=== PATIENT | male | born 1965 | race Caucasian/White ===

== ENCOUNTER 2018-03-24 09:10 | Inpatient (IN) | payer OTHER, SELFPAY ==
[2018-03-24] VITALS (25 sets, daily range): BP systolic 100–164; BP diastolic 63–106; PULSE 64–135; RESP 13–22; TEMP 36.8–37.6; O2SAT 96–100; BMI 29.0; BMI 31.6; BMI 31.7; BMI 29.2
--- NOTE | 2018-03-24 09:16 | NURSING ---
STEMI CALLED. DR GALLOWAY FOR DR RAMOS
--- NOTE | 2018-03-24 09:17 | EKG12_ITS ---
Test Reason : CP Blood Pressure : / mmHG Vent. Rate : 102 BPM Atrial Rate : 102 BPM P-R Int : 168 ms QRS Dur : 084 ms QT Int : 320 ms P-R-T Axes : 052 -45 -14 degrees QTc Int : 417 ms Sinus tachycardia Left axis deviation Pulmonary disease pattern Anterior Septal infarct Acute Marked ST abnormality, possible inferior subendocardial injury Abnormal ECG Confirmed by IRMA BATISTA, ELDON ([id number]), editor trade journal BRUCE ARMSTRONG ([id number]) on 03/26/2018 9:32:14 AM Referred By: Zayra Glaser Confirmed By:ELDON SOLIS MD
--- NOTE | 2018-03-24 09:24 | NURSING ---
DR DANIELLA RAMOS
[2018-03-24] MEDS: TICAGRELOR 90 MG TABLET 180 MG PO (09:26)
--- NOTE | 2018-03-24 09:26 | ED.VISSUMM ---
- ER Visit Summary Date of Service: 03/24/18 Chief Complaint: Chest pain History of Present Illness: The patient is a 52 M who presents with chest pain for the past 12 hours, he describes it as indigestion and he is trying to belch he thinks this will make it better. He has no radiation to his back. He has no neurological symptoms and he has no jaw pain associated with this. He has no fever or chills. Physical Examination: Patient appears in some distress Moist mucous membranes, no obvious facial deformity No C-spine tenderness supple neck. Regular rate and rhythm without any obvious murmurs Clear lungs bilaterally speaking in full sentences without any obvious respiratory distress Abdomen soft and nontender no guarding or rebound Moves all extremities without any difficulty or pain. Skin does not show any obvious rashes or lesions, no trauma. Alert oriented ?3 with no gross focal deficit Emergency department treatment and course of events: Initial EKG showed ST elevation in V1, with reciprocal's in 2 3 and aVF, I repeated a second EKG right away and patient has a STEMI. I activated the STEMI team. I talked to Dr. Singh who will see the patient. Brilinta, aspirin and heparin were given. He was hypertensive tachycardic I gave him some Lopressor and will manage this also. Admit to Tin Recovery Worker Impression: Acute ST elevation myocardial infarction Critical care time 35 minutes This note was generated with [employer] dictation software. It may contain incorrect words, spelling, and punctuation that were not noted in review of the chart prior to signing ED Disposition - Plan for ED Patient: Chief Complaint: Chest Pain Referrals: Patrick Sparrow MD [Primary Care Provider] -
[2018-03-24] MEDS: Aspirin 81 MG TAB.CHEW 324 MG PO (09:27)
[2018-03-24] MEDS: Heparin Injection (Vial) 5,000 UNIT/ML VIAL 4000 UNIT IV (09:27)
--- NOTE | 2018-03-24 09:28 | EKG12_ITS ---
Test Reason : REPEAT CP Blood Pressure : / mmHG Vent. Rate : 131 BPM Atrial Rate : 131 BPM P-R Int : 140 ms QRS Dur : 086 ms QT Int : 308 ms P-R-T Axes : 050 -09 -24 degrees QTc Int : 454 ms Sinus tachycardia Anteroseptal infarct , possibly acute ACUTE GA / STEMI Abnormal ECG Confirmed by IRMA BATISTA, ELDON ([id number]), editor magazine BRUCE ARMSTRONG ([id number]) on 03/26/2018 1:51:46 PM Referred By: Zayra Glaser Confirmed By:ELDON SOLIS MD
[2018-03-24 09:29] LABS: International Normalized Ratio 0.9; Prothrombin Time (Protime)PT. 12.5 SECONDS (11.7-14.9)
[2018-03-24] MEDS: Metoprolol Tartrate 5 MG/5 ML Vial IV (09:29)
--- NOTE | 2018-03-24 09:30 | ED.DCSUM_ITS ---
- ER Visit Summary Date of Service: 03/24/18 Chief Complaint: Chest pain History of Present Illness: The patient is a 52 M who presents with chest pain for the past 12 hours, he describes it as indigestion and he is trying to belch he thinks this will make it better. He has no radiation to his back. He has no neurological symptoms and he has no jaw pain associated with this. He has no fever or chills. Physical Examination: Patient appears in some distress Moist mucous membranes, no obvious facial deformity No C-spine tenderness supple neck. Regular rate and rhythm without any obvious murmurs Clear lungs bilaterally speaking in full sentences without any obvious respiratory distress Abdomen soft and nontender no guarding or rebound Moves all extremities without any difficulty or pain. Skin does not show any obvious rashes or lesions, no trauma. Alert oriented ?3 with no gross focal deficit Emergency department treatment and course of events: Initial EKG showed ST elevation in V1, with reciprocal's in 2 3 and aVF, I repeated a second EKG right away and patient has a STEMI. I activated the STEMI team. I talked to Dr. Singh who will see the patient. Brilinta, aspirin and heparin were given. He was hypertensive tachycardic I gave him some Lopressor and will manage this also. 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 It may contain incorrect words, spelling, and punctuation that were not noted in review of the chart prior to signing ED Disposition - Plan for ED Patient: Chief Complaint: Chest Pain Referrals: Patrick Sparrow MD [Primary Care Provider] -
--- NOTE | 2018-03-24 09:30 | RAD_ITS ---
STUDY: X-RAY CHEST REASON FOR EXAM: Male, 52 years old. Chest pain. TECHNIQUE: Single AP portable view of the chest. COMPARISON: None. FINDINGS: The lungs are clear and expanded. There is no demonstrated pleural abnormality. Normal size heart. Normal mediastinum and edis. Normal visualized pulmonary arteries. Normal visualized aortic arch and descending thoracic aorta. The thoracic spine is suboptimally seen. There are degenerative changes in the right acromioclavicular joint. There is no demonstrated abnormality of the visualized soft tissue structures of the upper abdomen. RAD/Chest 1 View (Portable) IMPRESSION: No active pulmonary disease. Electronically Signed: Hector Wall MD at 9:52 EST Tel , Service support ,
[2018-03-24 09:33] LABS: Absolute Lymphocyte Count 1.51 X10^3/ul (0.83-4.51); Absolute Neutrophil Count 9.6 X10^3/uL (2.0-7.7); Basophil# 0.03 X10^3/uL; Basophil% 0.2 % (0-1); Eosinophil# 0.12 X10^3/uL; Hematocrit 44.3 % (40-54); Hemoglobin 15.2 g/dl (13.0-16.5); Lymphocyte # 1.51 X10^3/ul (4.0); Lymphocyte % 12.3 % (19-41); Mean Corp Hgb Conc 34.3 g/gl (32-36); Mean Corpuscular Hgb 30.5 pg (27.0-32.0); Mean Corpuscular Volume 88.8 fL (80-94); Mean Platelet Vol. 10.2 fl (6.2-12.0); Monocyte# 1.01 X10^3/uL; Monocyte% 8.2 % (0-10); Neutrophil # 9.57 X10^3/uL (2.7-7.7); Neutrophil % 78.1 % (47-70); Platelet Count 315 K/mm3 (150-450); RBC Distribution Width CV 13.5 % (11.6-14.6); RBC Distribution Width SD 43.9 fl (35.1-43.9); Red Blood Count 4.99 M/mm3 (4.6-6.2); White Blood Count 12.3 K/mm3 (4.4-11.0)
[2018-03-24 09:34] LABS: POSITIVE COUNT NO; POSITIVE DIFFERENTIAL NO; POSITIVE MORPHOLOGY NO
--- NOTE | 2018-03-24 09:34 | NURSING ---
DR BREWER IN WITH PATIENT
[2018-03-24 09:40] LABS: Anion Gap 11 (5-15); BUN 12 mg/dL (7-18); BUN/Creat Ratio 10.8 RATIO (10-20); Calcium,Total 10.9 mg/dL (8.5-10.1); Chloride 103 mmol/L (98-107); Creatinine, Serum 1.11 mg/dL (0.70-1.30); EST Glomerular Filtration Rate 74 mL/min (>60); Est Glom Filt Rate - Afr Amer 89 mL/min (>60); Estimated Creatinine Clearance 77.85 ml/min; Glucose 134 mg/dL (74-106); Potassium 3.8 mmol/L (3.5-5.1); Sodium Level 141 mmol/L (136-145)
[2018-03-24] MEDS: Morphine 2 MG/ML Syringe IV ×3 (09:56→23:34)
--- NOTE | 2018-03-24 09:57 | ED.RN ---
0910. PT ARRIVES TRIAGE. STATES CP STARTING YESTERDAY. COMING FROM NOW CLINIC. PT BACK TO ROOM 1 IMMEDIATELY. EKG CALLED
--- NOTE | 2018-03-24 09:57 | PCM.HP.STD ---
Problem List (1) ST elevation FL (STEMI) Status: Acute (2) Hypertension Status: Chronic Qualifiers: Hypertension type: unspecified Qualified Code(s): I10 - Essential (primary) hypertension (3) Obesity (BMI 30.0-34.9) Status: Chronic (4) Nicotine dependence Status: Chronic Qualifiers: Nicotine product type: cigarettes (5) Cystic acne Status: Chronic History of Present Illness Date of Admission: 03/24/18 Chief Complaint: Midsternal chest pain and epigastric pain The patient is a 52 year old M with a past medical history of hypertension, nicotine dependence and cystic acne who presented to the emergency department at [facility] on 03/24/2018 complaining of substernal chest discomfort associated with burping. He denies radiation of the pain to the neck jaw or arms. He denies diaphoresis and also denies shortness of breath. He denies palpitations. EKG in the emergency room revealed ST segment elevation in the anterolateral leads with T wave inversions and ST depression in the inferior leads. Chest x-ray shows no infiltrates, pulmonary vascular congestion or pleural effusions. He denies any history of coronary artery disease. He does not know his family history because he is adopted. His primary care physician is Dr. Esa Sparrow. The cath team and Dr. Dustin Singh were summoned and the patient was taken to the [facility]. Past Medical History Past Medical History (Chronic Problems): Chronic Problems (Last Updated 03/24/18 @ 08:57 by Tegan Asher) Hypertension (Chronic) Obesity (BMI 30.0-34.9) (Chronic) Nicotine dependence (Chronic) Cystic acne (Chronic) Medical History: Medical History (Last Updated 03/24/18 @ 08:57 by Tegan Asher) HTN (hypertension) I10 Allergies bee venom protein (honey bee) Allergy (Verified 03/24/18 09:10) Unknown Home Medications: Ambulatory Orders Medication Instructions Recorded Amlodipine [Norvasc] 10 mg PO DAILY #30 tab 09/27/16 Hydrochlorothiazide 12.5 mg PO DAILY 03/13/17 Surgical History: - - Multiple cyst removals from the neck, face and right upper extremity Psychiatric History: No pertinent psych hx Lives: Alone, - - He is single and has no children. Smoking Status: Current every day smoker - 1 pack/day Tobacco Use: Cigarettes Alcohol: Occasional Drugs: None - *Family History Maternal History Items: - - The patient was adopted and has no knowledge of his maternal or Paternal family history. Review of Systems Constitutional: Reports: - - he is having increased eructation. Denies: Chills, Fever, Weight Change Eyes: Denies: Blurred vision HEENT: Denies: Head Aches, Sinus Congestion, Sinus Drainage Cardiovascular: Reports: Chest Pain, Chest Tightness. Denies: Edema, Heaviness, Light Headedness, Orthopnea, Palpitations, Syncope Respiratory: Denies: Cough, Shortness of breath at rest, Sputum production Gastrointestinal: Denies: Abdominal Pain, Nausea, Vomiting Genitourinary: Denies: Dysuria Musculoskeletal: Denies: Back Pain, Joint Pain, Joint swelling, Joint Tenderness, Neck Pain Skin: Denies: Rash, Wounds Neurological: Denies: Numbness, Tingling, Focal weakness Psychiatric: Denies: Anxiety, Depression, Homicidal Ideations, Suicidal Ideations Endocrine: Denies: Change in Body Habitus Hematologic/ Lymphatic: Denies: Easy Bruising, Easy Bleeding, Hx of blood clot VTE Information - Inpt Only VTE Present on Admission: No VTE Mechan Device Prophylaxis: SCD's VTE Pharm Prophylaxis ordered?: Yes Patient Problems: Active and Suspected Problems (Last Updated 03/24/18 @ 08:57 by Tegan Asher) ST elevation FL (STEMI) (Acute) - Physical Exam General: Alert, Oriented x3, Cooperative, Well developed, Well nourished, - - Somewhat anxious HEENT: Atraumatic, PERRLA, EOMI, Normocephalic Oral: Dry Mucosa Neck: Supple, No JVD, Negative Carotid Bruits, - - Carotids have brisk upstroke and good pulse volume Lungs: Clear to auscultation, Normal air movement, No rhonchi, No wheeze, No rales Cardiovascular: Regular Rhythm, Normal S1, Normal S2, No murmurs, No Gallop, Tachycardic Abdomen: Bowel Sounds Present, Soft, Non Tender, Non-Distended, Obese Extremities: No clubbing, No cyanosis, No edema, No Calf Tenderness, Peripheral Pulses Normal Skin: No rashes, No breakdown Musculoskeletal: No Muscle Wasting Neurological: Cranial nerves II-XII grossly intact, Neuro grossly intact Psych/Mental Status: Normal Affect, Appropriate Vital Signs Temp Pulse Resp BP Pulse Ox 98.3 F 135 H 18 164/97 H 98 03/24/18 09:11 03/24/18 09:17 03/24/18 09:17 03/24/18 09:17 03/24/18 09:17 Oxygen Flow Rate (L/min) 2 Oxygen Delivery Method Nasal Cannula Weight: 214 lb 6.4 oz Body Mass Index (BMI) 31.6 Laboratory Tests Past 24 Hrs 03/24/18 03/24/18 03/24/18 09:15 09:15 09:15 WBC 12.3 H RBC 4.99 Hgb 15.2 Hct 44.3 MCV 88.8 MCH 30.5 MCHC 34.3 RDW 13.5 RDW Differential 43.9 Plt Count 315 MPV 10.2 Immature Gran % (Auto) 0.200 Neut % (Auto) 78.1 H Lymph % (Auto) 12.3 L [place] % (Auto) 8.2 Eos % (Auto) 1.0 Baso % (Auto) 0.2 Absolute Neuts (auto) 9.6 H Absolute Lymphs (auto) 1.51 Total Counted Not Reportable PT 12.5 INR 0.9 APTT 24.0 L Sodium 141 Potassium 3.8 Chloride 103 Carbon Dioxide 27.0 Anion Gap 11 BUN 12 Creatinine 1.11 Estim Creat Clear Calc 77.85 Est GFR (MDRD) Af Amer 89 Est GFR (MDRD) Non-Af 74 BUN/Creatinine Ratio 10.8 Glucose 134 H Calcium 10.9 H Troponin I 0.252 H Assessment/Plan All Active Problems (Last Updated 03/24/18 @ 08:57 by Tegan Asher) ST elevation FL (STEMI) (Acute) Chest pain (Acute) Impressions 1. STEMI 2. Hypertension 3. Nicotine dependence 4. Cystic acne Pt was escorted to the lab tech by myself and observed until Dr. Singh arrived. There was no ectopy. CP was relieved with 2 mg of MS. He had no SOB and the lungs were CTA. Admit to ICU following the procedure and further orders will be written at that time after the results of the cath are known. Code Visit Inpatient E&M: 24663 Init Hosp L3
--- NOTE | 2018-03-24 10:01 | HP.PCM_ITS ---
Problem List (1) ST elevation [place] (STEMI) Status: Acute (2) Hypertension Status: Chronic Qualifiers: Hypertension type: unspecified Qualified Code(s): I10 - Essential (primary) hypertension (3) Obesity (BMI 30.0-34.9) Status: Chronic (4) Nicotine dependence Status: Chronic Qualifiers: Nicotine product type: cigarettes (5) Cystic acne Status: Chronic History of Present Illness Date of Admission: 03/24/18 Chief Complaint: Midsternal chest pain and epigastric pain The patient is a 52 year old M with a past medical history of hypertension, nicotine dependence and cystic acne who presented to the emergency department at [facility] on 03/24/2018 complaining of substernal chest discomfort associated with burping. He denies radiation of the pain to the neck jaw or arms. He denies diaphoresis and also denies shortness of breath. He denies palpitations. EKG in the emergency room revealed ST segment elevation in the anterolateral leads with T wave inversions and ST depression in the inferior leads. Chest x-ray shows no infiltrates, pulmonary vascular congestion or pleural effusions. He denies any history of coronary artery disease. He does not know his family history because he is adopted. His primary care physician is Dr. Esa Sparrow. The cath team and Dr. Dustin Singh were summoned and the patient was taken to the [facility]. Past Medical History Past Medical History (Chronic Problems): Chronic Problems (Last Updated 03/24/18 @ 08:57 by Tegan Asher) Hypertension (Chronic) Obesity (BMI 30.0-34.9) (Chronic) Nicotine dependence (Chronic) Cystic acne (Chronic) Medical History: Medical History (Last Updated 03/24/18 @ 08:57 by Tegan Asher) HTN (hypertension) I10 Allergies bee venom protein (honey bee) Allergy (Verified 03/24/18 09:10) Unknown Home Medications: Ambulatory Orders Medication Instructions Recorded Amlodipine [Norvasc] 10 mg PO DAILY #30 tab 09/27/16 Hydrochlorothiazide 12.5 mg PO DAILY 03/13/17 Surgical History: - - Multiple cyst removals from the neck, face and right upper extremity Psychiatric History: No pertinent psych hx Lives: Alone, - - He is single and has no children. Smoking Status: Current every day smoker - 1 pack/day Tobacco Use: Cigarettes Alcohol: Occasional Drugs: None - *Family History Maternal History Items: - - The patient was adopted and has no knowledge of his maternal or Paternal family history. Review of Systems Constitutional: Reports: - - he is having increased eructation. Denies: Chills, Fever, Weight Change Eyes: Denies: Blurred vision HEENT: Denies: Head Aches, Sinus Congestion, Sinus Drainage Cardiovascular: Reports: Chest Pain, Chest Tightness. Denies: Edema, Heaviness, Light Headedness, Orthopnea, Palpitations, Syncope Respiratory: Denies: Cough, Shortness of breath at rest, Sputum production Gastrointestinal: Denies: Abdominal Pain, Nausea, Vomiting Genitourinary: Denies: Dysuria Musculoskeletal: Denies: Back Pain, Joint Pain, Joint swelling, Joint Tendern ess, Neck Pain Skin: Denies: Rash, Wounds Neurological: Denies: Numbness, Tingling, Focal weakness Psychiatric: Denies: Anxiety, Depression, Homicidal Ideations, Suicidal Ideations Endocrine: Denies: Change in Body Habitus Hematologic/ Lymphatic: Denies: Easy Bruising, Easy Bleeding, Hx of blood clot VTE Information - Inpt Only VTE Present on Admission: No VTE Mechan Device Prophylaxis: SCD's VTE Pharm Prophylaxis ordered?: Yes Patient Problems: Active and Suspected Problems (Last Updated 03/24/18 @ 08:57 by Tegan Asher) ST elevation PA (STEMI) (Acute) - Physical Exam General: Alert, Oriented x3, Cooperative, Well developed, Well nourished, - - Somewhat anxious HEENT: Atraumatic, PERRLA, EOMI, Normocephalic Oral: Dry Mucosa Neck: Supple, No JVD, Negative Carotid Bruits, - - Carotids have brisk upstroke and good pulse volume Lungs: Clear to auscultation, Normal air movement, No rhonchi, No wheeze, No rales Cardiovascular: Regular Rhythm, Normal S1, Normal S2, No murmurs, No Gallop, Tachycardic Abdomen: Bowel Sounds Present, Soft, Non Tender, Non-Distended, Obese Extremities: No clubbing, No cyanosis, No edema, No Calf Tenderness, Peripheral Pulses Normal Skin: No rashes, No breakdown Musculoskeletal: No Muscle Wasting Neurological: Cranial nerves II-XII grossly intact, Neuro grossly intact Psych/Mental Status: Normal Affect, Appropriate Vital Signs Temp Pulse Resp BP Pulse Ox 98.3 F 135 H 18 164/97 H 98 03/24/18 09:11 03/24/18 09:17 03/24/18 09:17 03/24/18 09:17 03/24/18 09:17 Oxygen Flow Rate (L/min) 2 Oxygen Delivery Method Nasal Cannula Weight: 214 lb 6.4 oz Body Mass Index (BMI) 31.6 Laboratory Tests Past 24 Hrs 03/24/18 03/24/18 03/24/18 09:15 09:15 09:15 WBC 12.3 H RBC 4.99 Hgb 15.2 Hct 44.3 MCV 88.8 MCH 30.5 MCHC 34.3 RDW 13.5 RDW Differential 43.9 Plt Count 315 MPV 10.2 Immature Gran % (Auto) 0.200 Neut % (Auto) 78.1 H Lymph % (Auto) 12.3 L [place] % (Auto) 8.2 Eos % (Auto) 1.0 Baso % (Auto) 0.2 Absolute Neuts (auto) 9.6 H Absolute Lymphs (auto) 1.51 Total Counted Not Reportable PT 12.5 INR 0.9 APTT 24.0 L Sodium 141 Potassium 3.8 Chloride 103 Carbon Dioxide 27.0 Anion Gap 11 BUN 12 Creatinine 1.11 Estim Creat Clear Calc 77.85 Est GFR (MDRD) Af Amer 89 Est GFR (MDRD) Non-Af 74 BUN/Creatinine Ratio 10.8 Glucose 134 H Calcium 10.9 H Troponin I 0.252 H Assessment/Plan All Active Problems (Last Updated 03/24/18 @ 08:57 by Tegan Asher) ST elevation PA (STEMI) (Acute) Chest pain (Acute) Impressions 1. STEMI 2. Hypertension 3. Nicotine dependence 4. Cystic acne Pt was escorted to the labour market economist by myself and observed until Dr. Singh arrived. There was no ectopy. CP was relieved with 2 mg of MS. He had no SOB and the lungs were CTA. Admit to ICU following the procedure and further orders will be written at that time after the results of the cath are known. Code Visit Inpatient E&M: 50527 Init Hosp L3
[2018-03-24] MEDS: HEPARIN/D5w 25,000 UNITS 25,000 UNITS/250 ML IV.SOLN. 8 UNITS IV (10:30)
[2018-03-24 10:56] LABS: ACT Activated Clotting Time 175 sec (74-137)
[2018-03-24 10:56] LABS: ACT Activated Clotting Time 147 sec (74-137)
--- NOTE | 2018-03-24 11:08 | CL.I_ITS ---
Patient Name: MICHEAL DILLON Study Date: 03/24/2018 Performing: Dustin Singh MD Ht: 68.89 inches 175 cm : 1965 Wt: 213.85 lbs 97 kg Age: 52 Gender: male BSA: 2.12 PROCEDURE(S) PERFORMED [id number]/LV [id number], YAMILA AND/OR PTCA, ARTERY OR GRAFT, SINGLE VESSEL CLINICAL PROFILE AND CO-MORBIDITIES Patient presents with STEMI for emergent cardiac cath. Indications: ACS <= 24 hrs, New Onset Angina <= 2 months, Suspected CAD Heart Failure: NYHA Class: 1, Newly Diagnosed: Yes, Heart Failure Type: Systolic Stress/Imaging Stress/Image Study Performed: No Angina Classification Anginal Classification w/in 2 Weeks: No symptoms CAD Presentations: STEMI. 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 RECOMMENDATIONS Referred for immediate PCI Stress test in 4weeks to eval mid LCX. Highly recommend quitting all tobacco products Follow up with primary top spotter Risk factor modification ASA Indefinitley Plavix for at least 12 months Routine post interventional care Refer for Outpatient Cardiac Rehab Manual sheath removal per protocol Follow up with Dr. Singh Stress test in 4 weeks to eval LCX. Emergent IABP due to severe LV dysfunction and elevated LVEDP. DESCRIPTION OF PROCEDURE The patient arrived to the procedure lab. The risks and benefits of the procedure as well as a full d escription of our services here and lack of surgical backup were fully explained to the patient and/o r their significant other prior to the catheterization. The Timeout was completed, verifying the betina ect patient and procedure. The patient's procedural site was prepped and draped in the usual fashion. Local anesthetic was given subcutaneously to right groin region with Lidocaine 2%. Using a modified Seldinger technique, arterial access was obtained via the right femoral artery, a 6Fr sheath was inse rted. Right Coronary Artery selective angiography was then performed in multiple views using a 4 Fr. 3DRC catheter. Left Coronary Artery selective angiography was performed in multiple views using a 6 Fr. EBU 3.75 Guide Catheter. Left Ventriculography was performed in GREENE projection using a 4 Fr. Pigt ail catheter. LV to AO pullback pressures were then recordedA 7Fr 40cc IABP catheter was inserted into the right femoral artery, IABP settings: 1:1, IABP Augumented BP: 111 mmHg Systemic BP: 128 mmHgThe images were reviewed and options discussed. A decision was then made to proceed with an Intervention, IVUS or other adjunct procedure. Runthrough Guide wire was advanced to the LAD. [place] AP inserted Pass # 1 [place] AP Removed Samra Alianza 2.0 x 12 Balloon catheter was inserted. Balloon catheter was advanced across lesion in the LAD, pr oximal. PTCA balloon inflated at 6 atms for 5 secs. PTCA balloon inflated at 6 atms for 5 secs. Angio gram performed post balloon dilatation. Synergy 2.5 x 24 Drug Eluting stent was inserted. Drug Elutin g stent was advanced across the lesion in the LAD, proximal. Angiogram performed pre stent deployment . Angiogram performed post stent deployment. Farseer 3.0 x 8 Balloon catheter was inserted. Balloon catheter was advanced across lesion in the LAD, proximal. Angiogram performed pre balloon dilatation . Angiogram performed post balloon dilatation. Arterial sheath was exchanged for a 8 Fr Sheath. Contr ast was injected through the sheath and the Right Iliac and Femoral artery were assessed for possible closure device. The arterial sheath was sutured in place and capped CORONARY ANGIOGRAPHY DOMINANCE: Right Dominant LEFT HEART ASSESSMENT Left Ventricular Ejection Fraction: by LV Gram 35 % Depressed Left Ventricular systolic function LVEDP: 21-30 mmHg Abnormal Left Ventricular contraction pattern Anterior Hypokinesis - Severe LEFT MAIN: Angiographically normal LEFT ANTERIOR DECENDING ARTERY: PROX LAD: is occluded CIRCUMFLEX ARTERY: MID CIRC: 50 % Stenosis RIGHT CORONARY ARTERY: Mild luminal irregularities less than 30% RT PDA: Mid - 30 % Stenosis INTERVENTION INFORMATION LESION SITE: LAD (Proximal) Lesion Complexity: High/C, lesion at bifurcation: No, thrombus present: Yes, lesion length: 24 mm, cu lprit lesion: Yes Pre Stenosis: 100 % Pre intervention DONY flow: 0 PROCEDURE: Drug Eluting Stent with pre and post dilatation, Thrombectomy Post Stenosis: 0 % Post intervention DONY flow: 3 Lesion Devices: Medtronic 6 Fr EBU3.75 100cm Guide Catheter Terumo .014 Runthrough Extra Floppy 180cm straight Medtronic 6 Fr. [place] AP Aspiration Catheter Johnie Sci EMERGE MR 2.00x12 BALLOON Johnie Sci Synergy MR YAMILA 2.50x24 Johnie Sci NC EMERGE MR 3.00x08 BALLOON COMPLICATIONS No Complications PROCEDURE MEDICATIONS Oxygen: 2 L/min via nasal cannula Heparin 6000 unit(s) IV 03/24/2018 10:16:25 Heparin 4000 unit(s) IV 03/24/2018 10:40:38 Heparin 25,000u / 250ml D5W @ 800 u/hr IV started 03/24/2018 10:45:43 Nitro 200 mcg IC 03/24/2018 10:17:18 Nitro 200 mcg IC 03/24/2018 10:17:18 IV Bolus: .9 NaCl 1100 ml total 03/24/2018 10:32:51 IV Fluids: .9 NaCl decreased to 150 ml/hr 03/24/2018 10:33:01 SUMMARY OF HEMODYNAMIC DATA Time AIR REST ECG 09:56:18 AO 108/86 (98) SA 10:12:00 LV 152/-5, 21 10:31:33 LV 151/-7, 30 10:31:39 LVp 131/-8, 24 10:31:50 AOp 121/68 (92) 10:31:55 Signed By Dustin Singh MD On 03/24/2018 11:07:24 AM Dustin Snigh MD
[2018-03-24 11:15] LABS: Hemoglobin A1c 5.4 % (4.2-6.3)
[2018-03-24] MEDS: 0.9% Normal Saline 1,000 ML 150 ML IV (11:15)
--- NOTE | 2018-03-24 13:54 | NURSING ---
Pt keeping glasses & cell phone at bedside.
[2018-03-24] MEDS: Metoprolol Tartrate 25 MG Tablet 12.5 MG PO ×2 (15:27→21:33)
[2018-03-24] MEDS: 0.9% Normal Saline 1,000 ML 60 ML IV (16:10)
[2018-03-24 16:57] LABS: Partial Thromboplast Time 52.3 Seconds (24.1-36.2)
[2018-03-24] MEDS: Lisinopril 5 MG Tablet PO (17:06)
--- NOTE | 2018-03-24 17:15 | CM.UR ---
See attached sales and service representative. Met with face to face with the patient, introduced myself to him and explained my role. Patient works here at [employer]. Denies anticipating any needs at discharge. Anatoliy Hernandez, DANIEL, [facility].
[2018-03-24] MEDS: 0.9% NaCl Peripheral Flush Adult/Peds IV ×2 (19:31→23:34)
[2018-03-24] MEDS: Acetaminophen 325 MG Tablet 650 MG PO (21:06)
[2018-03-24] MEDS: Atorvastatin Calcium 80 MG Tablet PO (21:33)
[2018-03-24] MEDS: TICAGRELOR 90 MG TABLET PO (21:33)
[2018-03-24] MEDS: Zolpidem Tartrate 5 MG Tablet PO (21:33)
[2018-03-24 23:47] LABS: Partial Thromboplast Time 33.9 Seconds (24.1-36.2)
[2018-03-25] VITALS (31 sets, daily range): BP systolic 86–138; BP diastolic 55–95; PULSE 56–88; RESP 12–21; TEMP 36.6–37.5; O2SAT 95–100
[2018-03-25] MEDS: Gabapentin 100 MG Capsule PO (00:08)
[2018-03-25] MEDS: Heparin Injection (Vial) 5,000 UNIT/ML VIAL IV (00:54)
[2018-03-25] MEDS: 0.9% NaCl Peripheral Flush Adult/Peds IV ×2 (00:54→04:53)
[2018-03-25] MEDS: oxyCODONE 5 MG Tablet PO ×4 (00:55→21:01)
[2018-03-25 04:59] LABS: Hematocrit 37.5 % (40-54); Hemoglobin 12.7 g/dl (13.0-16.5); Mean Corp Hgb Conc 33.9 g/gl (32-36); Mean Corpuscular Hgb 30.8 pg (27.0-32.0); Mean Platelet Vol. 10.3 fl (6.2-12.0); Platelet Count 252 K/mm3 (150-450); RBC Distribution Width CV 13.9 % (11.6-14.6); RBC Distribution Width SD 45.8 fl (35.1-43.9); Red Blood Count 4.12 M/mm3 (4.6-6.2); White Blood Count 12.1 K/mm3 (4.4-11.0)
[2018-03-25 05:06] LABS: Scan Indicated on CBC? Y/N NO
[2018-03-25 05:19] LABS: ALB/GLOB Ratio 1.1 RATIO (0.9-2.4); AST(SGOT) 141 U/L (15-37); Alanine Aminotransfer ALT/SGPT 34 U/L (16-61); Albumin, Serum 3.2 g/dL (3.2-5.0); Alkaline Phosphatase 41 U/L (45-117); Anion Gap 9 (5-15); BUN 12 mg/dL (7-18); BUN/Creat Ratio 11.2 RATIO (10-20); Calcium,Total 8.2 mg/dL (8.5-10.1); Chloride 109 mmol/L (98-107); Cholesterol 169 mg/dL (200); Creatinine, Serum 1.07 mg/dL (0.70-1.30); EST Glomerular Filtration Rate 77 mL/min (>60); Est Glom Filt Rate - Afr Amer 93 mL/min (>60); Estimated Creatinine Clearance 88.64 ml/min; Glucose 90 mg/dL (74-106); High Density Lipoprotein 39 mg/dL; Potassium 3.7 mmol/L (3.5-5.1); Protein, Total 6.2 g/dL (6.4-8.2); Sodium Level 143 mmol/L (136-145); Triglycerides 200 mg/dL; Very Low Density Lipoprotein 40 mg/dL (5-40)
--- NOTE | 2018-03-25 05:55 | RAD_ITS ---
STUDY: X-RAY CHEST REASON FOR EXAM: Male, 52 years old. Documentation of location of aortic balloon placement. TECHNIQUE: Single AP portable view of the chest. COMPARISON: March 24, 2018. FINDINGS: Cardiac monitoring leads are present. Aortic balloon pump is present with the tip at the cephalad most portion of the aortic arch. The lungs are clear and expanded. There is no demonstrated pleural abnormality. There is borderline cardiomegaly. Normal mediastinum and edis. Normal visualized pulmonary arteries. There is atherosclerotic calcification of the aortic arch with tortuosity. There are diffuse degenerative changes of the visualized thoracic spine. There are degenerative changes of both shoulders. There is no demonstrated abnormality of the visualized soft tissue structures of the upper abdomen. RAD/Chest 1 View (Portable) IMPRESSION: 1. No radiographic evidence of acute cardiopulmonary disease. 2. The tip of the aortic balloon pump is at the aortic arch. Electronically Signed: Ema Reese MD at 6:06 EST , Service support ,
--- NOTE | 2018-03-25 06:49 | PN_ITS ---
Patient Problems: Active and Suspected Problems (Last Updated 03/24/18 @ 08:57 by Tegan Asher) ST elevation GA (STEMI) (Acute) Subjective: 52-year-old female admitted to [facility] on 03/24/2018 with STEMI. Taken to [facility] for stent to a 100% occluded LAD. Admitted to the ICU with a balloon pump in place. EF at the time of cath was 35% with anterior hypokinesis. All events of the past 24 hours have been reviewed. TMAX: 99.6 once Vital signs: Stable, pulse ox 95-100% on room air Fluid balance: -430 since admission Urine output: 1850 on 03/24/2018 Weight: All radiologic testing was reviewed: Chest x-ray today with the tip of the balloon pump in the superior portion of the aortic arch. No pleural effusions, pulmonary vascular congestion or infiltrates. All labs were personally reviewed: White blood cell count is mildly elevated at 12.1 which is unchanged. Hemoglobin is 12.7 today, down from 15.2 at admission. Electrolytes are within normal limits. Calcium is 8.2 down from 10.9 at admission. AST is 141 with an ALT of 34. Alk phos and bilirubin are unremarkable. LDL cholesterol is 90 with an HDL of 39 and triglycerides of 200. Telemetry: Normal sinus rhythm with periodic bursts of nonsustained ventricular tachycardia-5 beat runs, asymptomatic EKG: Hyper acute T waves in the anterior precordial leads have resolved but the patient is now developed T wave inversion in the lateral precordial leads. ST depression and T wave inversion in the inferior leads has resolved. Subjective: He denies chest pain, shortness of breath, palpitations, nausea, vomiting. His only complaint today is back pain which has improved with 10 mg of OxyIR. Objective: General: alert, oriented X3, NAD, appropriate with normal affect Neck: supple, trachea midline, carotids have brisk upstroke and good pulse volume (on IAB), no JVD Lungs: CTA, symmetric chest expansion, not tachypneic, able to lie flat with no respiratory distress, no accessory muscle use Heart: Regular rate and rhythm, normal S1, normal S2, no murmur, no gallop, no rub Abdomen: soft, NT, ND, BS's present Extremities: no edema, no calf tenderness, peripheral pulses are normal, no cyanosis Right groin is without bleeding and he has mild tenderness - Physical Exam Vital Signs Temp Pulse Resp BP Pulse Ox 97.9 F 65 14 115/80 95 03/25/18 06:00 03/25/18 06:00 03/25/18 06:00 03/25/18 06:00 03/25/18 06:00 Oxygen Flow Rate (L/min) 2 Oxygen Delivery Method Room Air Weight: 218 lb 7.649 oz Body Mass Index (BMI) 29.2 Intake and Output for Last 24 Hours 03/23/18 03/24/18 03/25/18 23:59 23:59 23:59 Intake Total 790 / 790 904.4 / 904.4 Output Total 1850 / 1850 275 / 275 Balance -1060 / -1060 629.4 / 629.4 Laboratory Tests Past 24 Hrs 03/24/18 03/24/18 03/24/18 09:15 09:15 09:15 WBC 12.3 H RBC 4.99 Hgb 15.2 Hct 44.3 MCV 88.8 MCH 30.5 MCHC 34.3 RDW 13.5 RDW Differential 43.9 Plt Count 315 MPV 10.2 Immature Gran % (Auto) 0.200 Neut % (Auto) 78.1 H Lymph % (Auto) 12.3 L Webster % (Auto) 8.2 Eos % (Auto) 1.0 Baso % (Auto) 0.2 Absolute Neuts (auto) 9.6 H Absolute Lymphs (auto) 1.51 Total Counted Not Reportable PT 12.5 INR 0.9 APTT 24.0 L Activated Clotting Time Sodium 141 Potassium 3.8 Chloride 103 Carbon Dioxide 27.0 Anion Gap 11 BUN 12 Creatinine 1.11 Estim Creat Clear Calc 77.85 Est GFR (MDRD) Af Amer 89 Est GFR (MDRD) Non-Af 74 BUN/Creatinine Ratio 10.8 Glucose 134 H Hemoglobin A1c Calcium 10.9 H Total Bilirubin AST ALT Alkaline Phosphatase Troponin I 0.252 H Total Protein Albumin Globulin Albumin/Globulin Ratio Triglycerides Cholesterol LDL Cholesterol VLDL Cholesterol HDL Cholesterol 03/24/18 03/24/18 03/24/18 09:15 10:13 10:37 WBC RBC Hgb Hct MCV MCH MCHC RDW RDW Differential Plt Count MPV Immature Gran % (Auto) Neut % (Auto) Lymph % (Auto) Webster % (Auto) Eos % (Auto) Baso % (Auto) Absolute Neuts (auto) Absolute Lymphs (auto) Total Counted PT INR APTT Activated Clotting Time 147 H 175 H Sodium Potassium Chloride Carbon Dioxide Anion Gap BUN Creatinine Estim Creat Clear Calc Est GFR (MDRD) Af Amer Est GFR (MDRD) Non-Af BUN/Creatinine Ratio Glucose Hemoglobin A1c 5.4 Calcium Total Bilirubin AST ALT Alkaline Phosphatase Troponin I Total Protein Albumin Globulin Albumin/Globulin Ratio Triglycerides Cholesterol LDL Cholesterol VLDL Cholesterol HDL Cholesterol 03/24/18 03/24/18 03/24/18 12:15 16:35 16:35 WBC RBC Hgb Hct MCV MCH MCHC RDW RDW Differential Plt Count MPV Immature Gran % (Auto) Neut % (Auto) Lymph % (Auto) Webster % (Auto) Eos % (Auto) Baso % (Auto) Absolute Neuts (auto) Absolute Lymphs (auto) Total Counted PT INR APTT 52.3 H Activated Clotting Time Sodium Potassium Chloride Carbon Dioxide Anion Gap BUN Creatinine Estim Creat Clear Calc Est GFR (MDRD) Af Amer Est GFR (MDRD) Non-Af BUN/Creatinine Ratio Glucose Hemoglobin A1c Calcium Total Bilirubin AST ALT Alkaline Phosphatase Troponin I 6.060 H* 20.400 H* Total Protein Albumin Globulin Albumin/Globulin Ratio Triglycerides Cholesterol LDL Cholesterol VLDL Cholesterol HDL Cholesterol 03/24/18 03/25/18 03/25/18 23:30 04:45 04:45 WBC 12.1 H RBC 4.12 L Hgb 12.7 L Hct 37.5 L MCV 91.0 MCH 30.8 MCHC 33.9 RDW 13.9 RDW Differential 45.8 H Plt Count 252 MPV 10.3 Immature Gran % (Auto) Neut % (Auto) Lymph % (Auto) Webster % (Auto) Eos % (Auto) Baso % (Auto) Absolute Neuts (auto) Absolute Lymphs (auto) Total Counted PT INR APTT 33.9 Activated Clotting Time Sodium 143 Potassium 3.7 Chloride 109 H Carbon Dioxide 25.0 Anion Gap 9 BUN 12 Creatinine 1.07 Estim Creat Clear Calc 88.64 Est GFR (MDRD) Af Amer 93 Est GFR (MDRD) Non-Af 77 BUN/Creatinine Ratio 11.2 Glucose 90 Hemoglobin A1c Calcium 8.2 L Total Bilirubin 0.70 AST 141 H ALT 34 Alkaline Phosphatase 41 L Troponin I Total Protein 6.2 L Albumin 3.2 Globulin 3.0 Albumin/Globulin Ratio 1.1 Triglycerides 200 H Cholesterol 169 LDL Cholesterol 90 VLDL Cholesterol 40 HDL Cholesterol 39 L Medical Necessity - Tobacco Use Smoking Status: Current every day smoker - 1 pack/day Tobacco Use: Cigarettes Assessment/Plan All Active Problems (Last Updated 03/24/18 @ 08:57 by Tegan Asher) ST elevation GA (STEMI) (Acute) Chest pain (Acute) Impressions 1. STEMI-status post PTCA/YAMILA LAD due to 100% occlusion. Intra-aortic balloon pump in place 2. Hypertension 3. Nicotine dependence 4. Cystic acne 5. Coronary artery disease 6. Nonsustained ventricular tachycardia-likely secondary to reperfusion Continue aspirin, atorvastatin, lisinopril, metoprolol, Brilinta Continue heparin as long as the balloon pump is in place-possible discontinuation of balloon pump in the a.m. Patient has been started on a cardiac diet We have begun instruction on the new medications he will be taking Smoking cessation has been advised but the patient has informed me he does not want to talk about this any longer Supplement the potassium to keep it around 4. Recheck lab in the a.m. Check a magnesium level today Will need a stress test in 4 weeks to evaluate for ischemia related to the 50% circumflex lesion Discussed with Dr. Schumacher and with Dr. Ayaan Faustin Visit Inpatient E&M: 28745 Subs Hosp L3
[2018-03-25 07:27] LABS: Partial Thromboplast Time 41.9 Seconds (24.1-36.2)
--- NOTE | 2018-03-25 08:09 | PCM.PN.CARD ---
Subjectve: Patient seen and evaluated. Appears to be doing well. Complains of mild back pain. Objective: Vital Signs Temp Pulse Resp BP Pulse Ox 97.9 F 62 13 95/63 98 03/25/18 06:00 03/25/18 07:00 03/25/18 07:00 03/25/18 07:00 03/25/18 07:00 Oxygen Flow Rate (L/min) 2 Oxygen Delivery Method Room Air Weight: 218 lb 7.649 oz Body Mass Index (BMI) 29.2 Intake and Output for Last 24 Hours 03/23/18 03/24/18 03/25/18 23:59 23:59 23:59 Intake Total 790 / 790 904.4 / 904.4 Output Total 1850 / 1850 305 / 305 Balance -1060 / -1060 599.4 / 599.4 General: Awake, Alert, Oriented x 3 HEENT: PERRL, EOMI, Sclera Non Icteric Neck: Supple, Good ROM, No Lymph Node Enlargement Lungs: Clear to auscultation Cardiovascular: Regular Rhythm, Normal S1, Normal S2, No Murmurs, No Rubs, No Gallops Vascular: No Carotid Bruits, Normal Femoral Pulses, Normal Radial Pulses, Normal Dorsalis Pedal Pulse, Normal Posterior Tibial Pulses Abdomen: Bowel Sounds Present, Soft, Non Tender, No HSM, No Organomegaly Extremities: No Cyanosis, No Clubbing, No edema Lymphatic: No Lymph Node Enlargement Neurological: No Focal Motor or Sensory Deficit Psych/Mental Status: Appropriate 03/24/18 09:15: WBC 12.3 H, RBC 4.99, Hgb 15.2, Hct 44.3, MCV 88.8, MCH 30.5, MCHC 34.3, RDW 13.5, RDW Differential 43.9, Plt Count 315, MPV 10.2, Immature Gran % (Auto) 0.200, Neut % (Auto) 78.1 H, Lymph % (Auto) 12.3 L, [place] % (Auto) 8.2, Eos % (Auto) 1.0, Baso % (Auto) 0.2, Absolute Neuts (auto) 9.6 H, Total Counted Not Reportable 03/24/18 09:15: PT 12.5, INR 0.9, APTT 24.0 L 03/24/18 09:15: Sodium 141, Potassium 3.8, Chloride 103, Carbon Dioxide 27.0, Anion Gap 11, BUN 12, Creatinine 1.11, Est GFR (MDRD) Af Amer 89, Est GFR (MDRD) Non-Af 74, BUN/Creatinine Ratio 10.8, Glucose 134 H, Calcium 10.9 H, Troponin I 0.252 H 03/24/18 09:15: Hemoglobin A1c 5.4 03/24/18 12:15: Troponin I 6.060 H* 03/24/18 16:35: Troponin I 20.400 H* 03/24/18 16:35: APTT 52.3 H 03/24/18 23:30: APTT 33.9 03/25/18 04:45: WBC 12.1 H, RBC 4.12 L, Hgb 12.7 L, Hct 37.5 L, MCV 91.0, MCH 30.8, MCHC 33.9, RDW 13.9, RDW Differential 45.8 H, Plt Count 252, MPV 10.3 03/25/18 04:45: Sodium 143, Potassium 3.7, Chloride 109 H, Carbon Dioxide 25.0, Anion Gap 9, BUN 12, Creatinine 1.07, Est GFR (MDRD) Af Amer 93, Est GFR (MDRD) Non-Af 77, BUN/Creatinine Ratio 11.2, Glucose 90, Calcium 8.2 L, Total Bilirubin 0.70, Triglycerides 200 H, Cholesterol 169, LDL Cholesterol 90, VLDL Cholesterol 40, HDL Cholesterol 39 L 03/25/18 07:00: APTT 41.9 H Rhythm: EKG: Normal sinus rhythm with evolutionary T wave inversions noted laterally ECHO: Stress Test: Cardiac Cath: PCI: CT Surgery: Holter monitor: EPS: PPM: CXR: Chest CT Scan: Medical Necessity - Tobacco Use Smoking Status: Current every day smoker - 1 pack/day Tobacco Use: Cigarettes Assessment/Plan 1. ST elevation myocardial infarction Patient presented with the above underwent urgent cardiac catheterization which demonstrated a totally occluded left anterior descending artery which was a treated with an export catheter and drug-eluting stents. Patient subsequently had an intra-aortic balloon pump placed We will continue supportive management with intravenous heparin Continue low-dose beta-phillip We will institute BOB inhibitor as tolerated Ticagrelor Have the balloon pump discontinued likely in a.m. Creatinine remains stable. There is however a hemoglobin drop of 2.5 which is stable and will be monitored. No evidence of bleeding noted. 2. Tobacco abuse Patient has been counseled about the above. 3. Lipidemia Will start high intensity statin. Thank you for allowing me to participate in the care of your patient. Please don't hesitate to call if any issues arise
--- NOTE | 2018-03-25 08:12 | PN.CARD_ITS ---
Subjectve: Patient seen and evaluated. Appears to be doing well. Complains of mild back pain. Objective: Vital Signs Temp Pulse Resp BP Pulse Ox 97.9 F 62 13 95/63 98 03/25/18 06:00 03/25/18 07:00 03/25/18 07:00 03/25/18 07:00 03/25/18 07:00 Oxygen Flow Rate (L/min) 2 Oxygen Delivery Method Room Air Weight: 218 lb 7.649 oz Body Mass Index (BMI) 29.2 Intake and Output for Last 24 Hours 03/23/18 03/24/18 03/25/18 23:59 23:59 23:59 Intake Total 790 / 790 904.4 / 904.4 Output Total 1850 / 1850 305 / 305 Balance -1060 / -1060 599.4 / 599.4 General: Awake, Alert, Oriented x 3 HEENT: PERRL, EOMI, Sclera Non Icteric Neck: Supple, Good ROM, No Lymph Node Enlargement Lungs: Clear to auscultation Cardiovascular: Regular Rhythm, Normal S1, Normal S2, No Murmurs, No Rubs, No Gallops Vascular: No Carotid Bruits, Normal Femoral Pulses, Normal Radial Pulses, Normal Dorsalis Pedal Pulse, Normal Posterior Tibial Pulses Abdomen: Bowel Sounds Present, Soft, Non Tender, No HSM, No Organomegaly Extremities: No Cyanosis, No Clubbing, No edema Lymphatic: No Lymph Node Enlargement Neurological: No Focal Motor or Sensory Deficit Psych/Mental Status: Appropriate 03/24/18 09:15: WBC 12.3 H, RBC 4.99, Hgb 15.2, Hct 44.3, MCV 88.8, MCH 30.5, MCHC 34.3, RDW 13.5, RDW Differential 43.9, Plt Count 315, MPV 10.2, Immature Gran % (Auto) 0.200, Neut % (Auto) 78.1 H, Lymph % (Auto) 12.3 L, Ogle % (Auto) 8.2, Eos % (Auto) 1.0, Baso % (Auto) 0.2, Absolute Neuts (auto) 9.6 H, Total Counted Not Reportable 03/24/18 09:15: PT 12.5, INR 0.9, APTT 24.0 L 03/24/18 09:15: Sodium 141, Potassium 3.8, Chloride 103, Carbon Dioxide 27.0, Anion Gap 11, BUN 12, Creatinine 1.11, Est GFR (MDRD) Af Amer 89, Est GFR (MDRD) Non-Af 74, BUN/Creatinine Ratio 10.8, Glucose 134 H, Calcium 10.9 H, Troponin I 0.252 H 03/24/18 09:15: Hemoglobin A1c 5.4 03/24/18 12:15: Troponin I 6.060 H* 03/24/18 16:35: Troponin I 20.400 H* 03/24/18 16:35: APTT 52.3 H 03/24/18 23:30: APTT 33.9 03/25/18 04:45: WBC 12.1 H, RBC 4.12 L, Hgb 12.7 L, Hct 37.5 L, MCV 91.0, MCH 30.8, MCHC 33.9, RDW 13.9, RDW Differential 45.8 H, Plt Count 252, MPV 10.3 03/25/18 04:45: Sodium 143, Potassium 3.7, Chloride 109 H, Carbon Dioxide 25.0, Anion Gap 9, BUN 12, Creatinine 1.07, Est GFR (MDRD) Af Amer 93, Est GFR (MDRD) Non-Af 77, BUN/Creatinine Ratio 11.2, Glucose 90, Calcium 8.2 L, Total Bilirubin 0.70, Triglycerides 200 H, Cholesterol 169, LDL Cholesterol 90, VLDL Cholesterol 40, HDL Cholesterol 39 L 03/25/18 07:00: APTT 41.9 H Rhythm: EKG: Normal sinus rhythm with evolutionary T wave inversions noted laterally ECHO: Stress Test: Cardiac Cath: PCI: CT Surgery: Holter monitor: EPS: PPM: CXR: Chest CT Scan: Medical Necessity - Tobacco Use Smoking Status: Current every day smoker - 1 pack/day Tobacco Use: Cigarettes Assessment/Plan 1. ST elevation myocardial infarction Patient presented with the above underwent urgent cardiac catheterization which demonstrated a totally occluded left anterior descending artery which was a treated with an export catheter and drug-eluting stents. * Patient subsequently had an intra-aortic balloon pump placed * We will continue supportive management with intravenous heparin * Continue low-dose beta-phillip * We will institute BOB inhibitor as tolerated * Ticagrelor * Have the balloon pump discontinued likely in a.m. * Creatinine remains stable. There is however a hemoglobin drop of 2.5 which is stable and will be monitored. No evidence of bleeding noted. 2. Tobacco abuse * Patient has been counseled about the above. * 3. Lipidemia * Will start high intensity statin. * * Thank you for allowing me to participate in the care of your patient. Please don't hesitate to call if any issues arise
[2018-03-25] MEDS: Aspirin E.C. 81 MG Tablet PO (09:22)
[2018-03-25] MEDS: Lisinopril 5 MG Tablet PO (09:23)
[2018-03-25] MEDS: TICAGRELOR 90 MG TABLET PO ×2 (09:23→21:31)
[2018-03-25] MEDS: Metoprolol Tartrate 25 MG Tablet 12.5 MG PO ×2 (09:23→21:31)
--- NOTE | 2018-03-25 10:00 | EKG12_ITS ---
Test Reason : AM EKG Blood Pressure : / mmHG Vent. Rate : 066 BPM Atrial Rate : 066 BPM P-R Int : 184 ms QRS Dur : 108 ms QT Int : 436 ms P-R-T Axes : 062 029 106 degrees QTc Int : 457 ms Normal sinus rhythm T wave abnormality, consider anterolateral ischemia Abnormal ECG When compared with ECG of 24-MAR-2018 11:34, MANUAL COMPARISON REQUIRED, DATA IS UNCONFIRMED Confirmed by IRMA BATISTA, ELDON ([id number]), society editor BRUCE ARMSTRONG ([id number]) on 03/27/2018 4:13:32 PM Referred By: Zayra Glaser Confirmed By:ELDON SOLIS MD
[2018-03-25 10:16] LABS: Magnesium 2.2 mg/dL (1.6-2.6)
--- NOTE | 2018-03-25 11:00 | EKG12_ITS ---
Test Reason : CHEST PAIN Blood Pressure : / mmHG Vent. Rate : 070 BPM Atrial Rate : 070 BPM P-R Int : 168 ms QRS Dur : 112 ms QT Int : 438 ms P-R-T Axes : 049 018 126 degrees QTc Int : 473 ms Normal sinus rhythm ST & T wave abnormality, consider anterolateral ischemia Prolonged QT Abnormal ECG Confirmed by IRMA BATISTA, ELDON ([id number]), field map editor BRUCE ARMSTRONG ([id number]) on 03/27/2018 4:12:49 PM Referred By: Zayra Glaser Confirmed By:ELDON SOLIS MD
[2018-03-25] MEDS: HEPARIN/D5w 25,000 UNITS 25,000 UNITS/250 ML IV.SOLN. 10 UNITS IV (12:28)
[2018-03-25 13:51] LABS: Partial Thromboplast Time 41.1 Seconds (24.1-36.2)
[2018-03-25 20:12] LABS: Partial Thromboplast Time 45.5 Seconds (24.1-36.2)
[2018-03-25] MEDS: Zolpidem Tartrate 5 MG Tablet PO (21:31)
[2018-03-25] MEDS: Atorvastatin Calcium 80 MG Tablet PO (21:31)
[2018-03-25] MEDS: Mag Hydrox/Al Hydrox/Simeth 30 ML UDC 15 ML PO (22:29)
[2018-03-26] VITALS (35 sets, daily range): BP systolic 84–149; BP diastolic 55–97; PULSE 62–92; RESP 13–24; TEMP 36.6–37.8; O2SAT 94–99; BMI 29.5
[2018-03-26 03:18] LABS: Hematocrit 37.3 % (40-54); Hemoglobin 12.6 g/dl (13.0-16.5); Mean Corp Hgb Conc 33.8 g/gl (32-36); Mean Corpuscular Hgb 30.1 pg (27.0-32.0); Mean Platelet Vol. 9.8 fl (6.2-12.0); Platelet Count 230 K/mm3 (150-450); RBC Distribution Width CV 13.4 % (11.6-14.6); RBC Distribution Width SD 43.7 fl (35.1-43.9); Red Blood Count 4.19 M/mm3 (4.6-6.2); White Blood Count 12.7 K/mm3 (4.4-11.0)
[2018-03-26 03:27] LABS: Scan Indicated on CBC? Y/N NO
[2018-03-26 03:55] LABS: Anion Gap 11 (5-15); BUN 13 mg/dL (7-18); BUN/Creat Ratio 12.9 RATIO (10-20); Calcium,Total 8.3 mg/dL (8.5-10.1); Chloride 107 mmol/L (98-107); Creatinine, Serum 1.01 mg/dL (0.70-1.30); EST Glomerular Filtration Rate 82 mL/min (>60); Est Glom Filt Rate - Afr Amer 100 mL/min (>60); Estimated Creatinine Clearance 93.91 ml/min; Glucose 90 mg/dL (74-106); Magnesium 2.1 mg/dL (1.6-2.6); Potassium 3.8 mmol/L (3.5-5.1); Sodium Level 141 mmol/L (136-145)
[2018-03-26 03:58] LABS: Partial Thromboplast Time 61.8 Seconds (24.1-36.2)
[2018-03-26] MEDS: oxyCODONE 5 MG Tablet PO ×2 (04:22→08:48)
--- NOTE | 2018-03-26 05:55 | RAD_ITS ---
STUDY: X-RAY CHEST REASON FOR EXAM: Male, 52 years old. Verify aortic balloon pump catheter placement. TECHNIQUE: AP portable chest. COMPARISON: March 25, 2018. FINDINGS: Aortic balloon pump tip in its expected location. The lungs are clear and expanded. There is no demonstrated pleural abnormality. Normal size heart. Normal mediastinum and edis. Normal visualized pulmonary arteries. Normal visualized aortic arch and descending thoracic aorta. Normal visualized thoracic spine. Normal visualized ribs, clavicles, and shoulders. There is no demonstrated abnormality of the visualized soft tissue structures of the upper abdomen. RAD/Chest 1 View (Portable) IMPRESSION: Normal x-ray examination of the chest. Aortic balloon pump in its expected location. Electronically Signed: Omi Lemons MD at 5:07 EST , Service support ,
--- NOTE | 2018-03-26 07:27 | CRPHASE1 ---
Patient Data/Charges Assistant Community Manager:: Dustin Singh Refer Phase II:: Yes Phase II Referral:: [facility] Start Phase II:: After follow up visit with Cardiology Phase I Charge:: Level I - Education Risk Factors/Lifestyle Smoking Status: Current every day smoker Hx Hypertension: Yes Hx Dyslipidemia: Yes Hx Obesity: Yes Height: 6 ft Weight:: 218 lb BMI: 29.5 Laboratory Values: Cardiac Rehab Phase I Labs Hemoglobin A1c 5.4 % (4.2-6.3) 03/24/18 09:15 Triglycerides 200 mg/dL (-199) H 03/25/18 04:45 Cholesterol 169 mg/dL (200) 03/25/18 04:45 LDL Cholesterol 90 mg/dL (0-130) 03/25/18 04:45 HDL Cholesterol 39 mg/dL (40-) L 03/25/18 04:45 Phase I Education Given On:: [place], Nutrition, Antiplatelet medication, CHF, Smoking cessation Issues Affecting Care:: None Knowledge of Condition:: Yes Learning Preferences: Verbal, Written, Audio/Visual, Demonstration Medical/Surgical History Hypertension:: Yes Dyslipidemia:: Yes Discharge/Home/Social Eval Social Work/Reason:: Works at [employer], is adopted.
[2018-03-26 07:30] LABS: ACT Activated Clotting Time 131 sec (74-137)
--- NOTE | 2018-03-26 07:31 | CRPHASE1_ITS ---
Patient Data/Charges Station Captain:: Dustin Singh Refer Phase II:: Yes Phase II Referral:: [facility] Start Phase II:: After follow up visit with Cardiology Phase I Charge:: Level I - Education Risk Factors/Lifestyle Smoking Status: Current every day smoker Hx Hypertension: Yes Hx Dyslipidemia: Yes Hx Obesity: Yes Height: 6 ft Weight:: 218 lb BMI: 29.5 Laboratory Values: Cardiac Rehab Phase I Labs Hemoglobin A1c 5.4 % (4.2-6.3) 03/24/18 09:15 Triglycerides 200 mg/dL (-199) H 03/25/18 04:45 Cholesterol 169 mg/dL (200) 03/25/18 04:45 LDL Cholesterol 90 mg/dL (0-130) 03/25/18 04:45 HDL Cholesterol 39 mg/dL (40-) L 03/25/18 04:45 Phase I Education Given On:: [place], Nutrition, Antiplatelet medication, CHF, Smoking cessation Issues Affecting Care:: None Knowledge of Condition:: Yes Learning Preferences: Verbal, Written, Audio/Visual, Demonstration Medical/Surgical History Hypertension:: Yes Dyslipidemia:: Yes Discharge/Home/Social Eval Social Work/Reason:: Works at [employer], is adopted.
--- NOTE | 2018-03-26 07:33 | CRPH1.INST_ITS ---
General Education CAD and cardiac anatomy and function:: Patient communicates acknowledgment, Needs reinforcement Explanation of diagnoses and procedures:: Patient communicates acknowledgment, Needs reinforcement Sign/Symptoms of VT:: Patient communicates acknowledgment, Needs reinforcement Antiplatelet therapy: Patient communicates acknowledgment, Needs reinforcement Proper use of NTG-SL: Patient communicates acknowledgment, Needs reinforcement Emergency procedures and activation of EMS: Patient communicates acknowledgment, Needs reinforcement Compliance of all prescribed medications: Patient communicates acknowledgment, Needs reinforcement Smoking Patient Nicotine/Smoking Risk Factors Are:: Cigarettes Recommendations Include:: Smoking cessation strategies/Smoking packet, Second- hand smoke recommendation, Participation in a smoking cessation program Nicotine/Smoking Response Code:: Patient communicates acknowledgment, Needs reinforcement Dyslipidemia Patient Dyslipidemia Risk Factors Are:: Total Cholesterol, Triglycerides, HDL, LDL Recommendations Include:: Lipid profile provided, Reviewed NCEP/ATP guidelines, Therapeutic Lifestyle Change dietary guidelines Dyslipidemia Response Code:: Patient communicates acknowledgment, Needs reinforcement Overweight/Obesity Patient Overweight/Obesity Risk Factors Are:: Overweight = 26-29 Recommendations Include:: Weight loss of 5-10%, Reduced calorie diet, Exercise 5-7 times/week Overweight/Obesity:: Patient communicates acknowledgment, Needs reinforcement Hypertension Recommendations Include:: Maintain BP <130/85, DASH dietary guidelines, Decrease/maintain normal body weight, Moderation of ETOH Hypertension:: Patient communicates acknowledgment, Needs reinforcement Heart Disease Patient Heart Disease Risk Factors Are:: Previous cardiac event Heart Disease Response Code:: Patient communicates acknowledgment, Needs reinforcement - Is adopted, has no children Diabetes Patient Diabetes Risk Factors Are:: No documented hx of diabetes Diabetes:: Not instructed Metabolic Syndrome Patient Metabolic Syndrome Risk Factors Are [3 of 5]:: Waist circumference > 35 [female] or 40 [male], High triglyceride >150, Hypertension, Low HDL <40 [male] or < 50 [female] Recommendations Include:: Reinforce compliance to risk factor modifications, Encouraged follow-up with Primary Care Physician Metabolic Syndrome Response Code:: Patient communicates acknowledgment, Needs reinforcement Sedentary Recommendations Include:: Aerobic exercise 5-7 times/week for 20-30 minutes continuously, Benefits of regular exercise, Discussed home walking program, Monitored Outpatient Cardiac Rehab Sedentary Response Code:: Patient communicates acknowledgment, Needs reinforcement Stress Recommendations Include:: Identification of stressors, and assessment of coping skills, Stress management techniques Stress Response Code:: Patient communicates acknowledgment, Needs reinforcement
[2018-03-26] MEDS: Lisinopril 5 MG Tablet PO (08:44)
[2018-03-26] MEDS: TICAGRELOR 90 MG TABLET PO ×2 (08:44→21:42)
[2018-03-26] MEDS: Aspirin E.C. 81 MG Tablet PO (08:44)
[2018-03-26] MEDS: Metoprolol Tartrate 25 MG Tablet 12.5 MG PO ×2 (08:45→21:42)
--- NOTE | 2018-03-26 09:13 | PN.CARD_ITS ---
Subjectve: Patient doing very well overnight. Telemetry negative. Right groin is clean/dry/intact. Intruding balloon pump weaned off successfully and removed this morning. Direct manual pressure held for 30 minutes. No hematoma, excellent 2+ DP and PT pulses bilaterally. Objective: Vital Signs Temp Pulse Resp BP Pulse Ox 98.8 F 67 17 118/78 99 03/26/18 09:00 03/26/18 09:00 03/26/18 09:00 03/26/18 09:00 03/26/18 09:00 Oxygen Flow Rate (L/min) 2 Oxygen Delivery Method Room Air Weight: 218 lb Body Mass Index (BMI) 29.2 Intake and Output for Last 24 Hours 03/24/18 03/25/18 03/26/18 23:59 23:59 23:59 Intake Total 790 / 790 2405.4 / 2405.4 1427.4 / 1427.4 Output Total 1850 / 1850 1560 / 1560 780 / 780 Balance -1060 / -1060 845.4 / 845.4 647.4 / 647.4 General: Awake, Alert, Oriented x 3 HEENT: PERRL, EOMI, Sclera Non Icteric Neck: Supple, Good ROM, No Lymph Node Enlargement Lungs: Clear to auscultation Cardiovascular: Regular Rhythm, Normal S1, Normal S2, No Murmurs, No Rubs, No Gallops Vascular: No Carotid Bruits, Normal Femoral Pulses, Normal Radial Pulses, Normal Dorsalis Pedal Pulse, Normal Posterior Tibial Pulses Abdomen: Bowel Sounds Present, Soft, Non Tender, No HSM, No Organomegaly Extremities: No Cyanosis, No Clubbing, No edema Neurological: No Focal Motor or Sensory Deficit 03/25/18 07:00: Magnesium 2.2 03/25/18 13:30: APTT 41.1 H 03/25/18 19:55: APTT 45.5 H 03/26/18 03:05: WBC 12.7 H, RBC 4.19 L, Hgb 12.6 L, Hct 37.3 L, MCV 89.0, MCH 30.1, MCHC 33.8, RDW 13.4, RDW Differential 43.7, Plt Count 230, MPV 9.8 03/26/18 03:05: Sodium 141, Potassium 3.8, Chloride 107, Carbon Dioxide 23.0, Anion Gap 11, BUN 13, Creatinine 1.01, Est GFR (MDRD) Af Amer 100, Est GFR (MDRD) Non-Af 82, BUN/Creatinine Ratio 12.9, Glucose 90, Calcium 8.3 L, Magnesium 2.1 03/26/18 03:05: APTT 61.8 H Rhythm: EKG: ECHO: Pending Stress Test: Cardiac Cath: PCI: CT Surgery: Holter monitor: EPS: PPM: CXR: Chest CT Scan: Medical Necessity - Tobacco Use Smoking Status: Current every day smoker Tobacco Use: Cigarettes Assessment/Plan 1. Coronary artery disease: The patient presents with acute anterior wall myocardial infarction with a peak troponin of about 10, and moderate to severe anterior LV dysfunction with an EF around 35% post procedure. He received a single drug-eluting stent to the proximal LAD followed by intra-aortic balloon pump placement for about 48 hours. Intra-aortic balloon pump weaned off this morning and successfully removed without complications. Blood pressure is doing fairly well. This point he will continue baby aspirin, Brilinta, lisinopril and beta- blockers. I recommended he undergo a stress test in 3-4 weeks time to evaluate his left circumflex territory. If he has any inferior lateral ischemia on stress testing, I have a low threshold for repeat catheterization and elective angioplasty of his left circumflex. 2. Hyperlipidemia: Continue Lipitor therapy. Repeat lipid profile in 6 weeks time. 3. The patient may be transferred to PCU should the ICU require or need a ICU bed. Plan for discharge tomorrow morning. 4. Thank you very much for the opportunity to participate in the cardiac care of your patient. Code Visit Inpatient E&M: 45318 Subs Hosp L2
--- NOTE | 2018-03-26 10:00 | EKG12_ITS ---
Test Reason : AM EKG Blood Pressure : / mmHG Vent. Rate : 066 BPM Atrial Rate : 066 BPM P-R Int : 164 ms QRS Dur : 092 ms QT Int : 470 ms P-R-T Axes : 051 009 115 degrees QTc Int : 492 ms Normal sinus rhythm ST & T wave abnormality, consider anterolateral ischemia Prolonged QT Abnormal ECG When compared with ECG of 25-MAR-2018 20:01, MANUAL COMPARISON REQUIRED, DATA IS UNCONFIRMED Confirmed by IRMA BATISTA, ELDON ([id number]), city editor BRUCE ARMSTRONG ([id number]) on 03/27/2018 4:11:28 PM Referred By: Zayra Glaser Confirmed By:ELDON SOLIS MD
--- NOTE | 2018-03-26 14:49 | PCM.PN.HOSP ---
Patient Problems: Active and Suspected Problems (Last Updated 03/24/18 @ 08:57 by Tegan Asher) ST elevation MT (STEMI) (Acute) Subjective: Patient seen and examined. He had no complaints and felt well. He denied any fever chills, cough or chest pain, shortness of breath, abdominal pain, diarrhea vomiting. Pain at cath site is well controlled. Labs and vitals reviewed. He had intra-aortic balloon pump placed after surgery. This was removed this morning he feels well. Vitals/I&O's: Vital Signs Temp Pulse Resp BP Pulse Ox 99.2 F H 73 19 H 132/74 H 94 03/26/18 12:00 03/26/18 13:00 03/26/18 13:00 03/26/18 13:00 03/26/18 13:00 Oxygen Flow Rate (L/min) 2 Oxygen Delivery Method Room Air Weight: 218 lb Body Mass Index (BMI) 29.2 Intake and Output for Last 24 Hours 03/24/18 03/25/18 03/26/18 23:59 23:59 23:59 Intake Total 790 / 790 2405.4 / 2405.4 1787.4 / 1787.4 Output Total 1850 / 1850 1560 / 1560 1530 / 1530 Balance -1060 / -1060 845.4 / 845.4 257.4 / 257.4 General: Alert, Oriented x3, Cooperative HEENT: Atraumatic, PERRLA, EOMI, Normocephalic Oral: Moist Mucosa Neck: Supple, No JVD, Negative Carotid Bruits Lungs: Clear to auscultation, Normal air movement, No rhonchi, No wheeze, No rales Cardiovascular: Regular rate, Regular Rhythm, Normal S1, Normal S2, No murmurs Abdomen: Bowel Sounds Present, Soft, Non Tender, Non-Distended, No Hepato-splenomegaly Extremities: No clubbing, No cyanosis, No edema, Capillary Refill Less than 3 Seconds, - - dressing at right groin site is clean and dry. Skin: No rashes, No breakdown Musculoskeletal: No Tenderness to Palpation of Joints or Extremities Lymphatic: No Cervical, Supraclavicular, or Inguinal Adenopathy Neurological: Cranial nerves II-XII grossly intact Psych/Mental Status: Normal Affect, Appropriate, Alert and oriented to time, place, person, mood and affect Laboratory Results 03/25/18 19:55: APTT 45.5 H 03/26/18 03:05: WBC 12.7 H, RBC 4.19 L, Hgb 12.6 L, Hct 37.3 L, MCV 89.0, MCH 30.1, MCHC 33.8, RDW 13.4, RDW Differential 43.7, Plt Count 230, MPV 9.8 03/26/18 03:05: Sodium 141, Potassium 3.8, Chloride 107, Carbon Dioxide 23.0, Anion Gap 11, BUN 13, Creatinine 1.01, Estim Creat Clear Calc 93.91, Est GFR (MDRD) Af Amer 100, Est GFR (MDRD) Non-Af 82, BUN/Creatinine Ratio 12.9, Glucose 90, Calcium 8.3 L, Magnesium 2.1 03/26/18 03:05: APTT 61.8 H 03/26/18 07:17: Activated Clotting Time 131 Diagnostic Data Chest X-Ray 03/26/18 05:55 IMPRESSION: Normal x-ray examination of the chest. Aortic balloon pump in its expected location. Electronically Signed: Omi Lemons MD at 5:07 EST , Service support , Current Medications Acetaminophen (Tylenol) 650 mg PO Q6H PRN PRN PRN Reason: Mild Pain (0-2/10) Last Admin: 03/24/18 21:06 Dose: 650 mg Aspirin (Ecotrin) 81 mg PO DAILY@0800 [facility] Last Admin: 03/26/18 08:44 Dose: 81 mg Atorvastatin Calcium (Lipitor) 80 mg PO QHS [facility] Last Admin: 03/25/18 21:31 Dose: 80 mg Atropine Sulfate () 0.5 mg IV UD PRN PRN Reason: HR <50 bpm Diazepam (Valium) 5 mg PO Q6H PRN PRN PRN Reason: BACK SPASMS/ANXIETY Sodium Chloride () 250 mls @ 15 mls/hr IV .[id number] PRN PRN Reason: SALINE FLUSH Sodium Chloride () 500 mls @ 15 mls/hr IV .[id number] PRN PRN Reason: SALINE FLUSH Lisinopril (Zestril) 5 mg PO DAILY [facility] Last Admin: 03/26/18 08:44 Dose: 5 mg Metoclopramide HCl (Reglan) 5 mg IV Q6H PRN PRN Reason: NAUSEA/VOMITING Metoprolol Tartrate (Lopressor (Beta Iman)) 12.5 mg PO BID [facility] Last Admin: 03/26/18 08:45 Dose: 12.5 mg Morphine Sulfate () 2 mg IV Q4H PRN PRN PRN Reason: Mild back pain (0-2/10) Last Admin: 03/24/18 23:34 Dose: 2 mg Oxycodone HCl (Oxyir) 5 - 10 mg PO Q4H PRN PRN PRN Reason: SEVERE PAIN (6-10/10) Last Admin: 03/26/18 08:48 Dose: 10 mg [facility] Last Admin: 03/26/18 08:48 Dose: 20 meq Sodium Chloride () 500 ml IV BOLUS PRN PRN Reason: VASO-VAGAL PROTOCOL Sodium Chloride () 5 - 30 ml IV UD PRN PRN Reason: SALINE FLUSH Last Admin: 03/25/18 04:53 Dose: 10 ml Ticagrelor (Brilinta) 90 mg PO BID [facility] Last Admin: 03/26/18 08:44 Dose: 90 mg Zolpidem Tartrate (Ambien (Generic)) 5 mg PO QHS PRN PRN PRN Reason: INSOMNIA Last Admin: 03/25/18 21:31 Dose: 5 mg Medical Necessity - Tobacco Use Smoking Status: Current every day smoker Tobacco Use: Cigarettes Assessment/Plan All Active Problems (Last Updated 03/24/18 @ 08:57 by Tegan Asher) ST elevation MT (STEMI) (Acute) Chest pain (Acute) 1. STEMI s/p cath today is POD 1. Had YAMILA placed in LAD due to 100% occlusion. Had intraortic balloon pump put in place afterwards has no complaints today. Feels well Intra-aortic balloon pump placed after surgery but this was removed today he feels well. on aspirin, Brilinta, metoprolol, lisinopril and atorvastatin cardiology on board to have stress test in 4 weeks time to evaluate for ischemia related to 50% blockage in circumflex lesion 2. Hypertension: controlled. On metoprolol 3. Nonsustained ventricular tachycardia: Stable. Has resolved. 4. Low-grade fever: Temperature 99.5 after procedure. He has no obvious source of infection. Chest x-ray done today showed no obvious lung pathology. Likely reactive after surgery. Will monitor. Tylenol as needed. 5. Nicotine dependence: counselled to quit 6. Leukocytosis: White cell count is 12.7 today. Again no obvious source of infection. Likely reactive. Will monitor and if it continues trending up we will order cultures and UA. DVT prophylaxis: SCDs Code Visit Inpatient E&M: 07134 Subs Hosp L3
--- NOTE | 2018-03-26 14:56 | PN_ITS ---
Patient Problems: Active and Suspected Problems (Last Updated 03/24/18 @ 08:57 by Tegan Asher) ST elevation CT (STEMI) (Acute) Subjective: Patient seen and examined. He had no complaints and felt well. He denied any fever chills, cough or chest pain, shortness of breath, abdominal pain, diarrhea vomiting. Pain at cath site is well controlled. Labs and vitals reviewed. He had intra-aortic balloon pump placed after surgery. This was removed this morning he feels well. Vitals/I&O's: Vital Signs Temp Pulse Resp BP Pulse Ox 99.2 F H 73 19 H 132/74 H 94 03/26/18 12:00 03/26/18 13:00 03/26/18 13:00 03/26/18 13:00 03/26/18 13:00 Oxygen Flow Rate (L/min) 2 Oxygen Delivery Method Room Air Weight: 218 lb Body Mass Index (BMI) 29.2 Intake and Output for Last 24 Hours 03/24/18 03/25/18 03/26/18 23:59 23:59 23:59 Intake Total 790 / 790 2405.4 / 2405.4 1787.4 / 1787.4 Output Total 1850 / 1850 1560 / 1560 1530 / 1530 Balance -1060 / -1060 845.4 / 845.4 257.4 / 257.4 General: Alert, Oriented x3, Cooperative HEENT: Atraumatic, PERRLA, EOMI, Normocephalic Oral: Moist Mucosa Neck: Supple, No JVD, Negative Carotid Bruits Lungs: Clear to auscultation, Normal air movement, No rhonchi, No wheeze, No rales Cardiovascular: Regular rate, Regular Rhythm, Normal S1, Normal S2, No murmurs Abdomen: Bowel Sounds Present, Soft, Non Tender, Non-Distended, No Hepato- splenomegaly Extremities: No clubbing, No cyanosis, No edema, Capillary Refill Less than 3 Seconds, - - dressing at right groin site is clean and dry. Skin: No rashes, No breakdown Musculoskeletal: No Tenderness to Palpation of Joints or Extremities Lymphatic: No Cervical, Supraclavicular, or Inguinal Adenopathy Neurological: Cranial nerves II-XII grossly intact Psych/Mental Status: Normal Affect, Appropriate, Alert and oriented to time, place, person, mood and affect Laboratory Results 03/25/18 19:55: APTT 45.5 H 03/26/18 03:05: WBC 12.7 H, RBC 4.19 L, Hgb 12.6 L, Hct 37.3 L, MCV 89.0, MCH 30.1, MCHC 33.8, RDW 13.4, RDW Differential 43.7, Plt Count 230, MPV 9.8 03/26/18 03:05: Sodium 141, Potassium 3.8, Chloride 107, Carbon Dioxide 23.0, Anion Gap 11, BUN 13, Creatinine 1.01, Estim Creat Clear Calc 93.91, Est GFR (MDRD) Af Amer 100, Est GFR (MDRD) Non-Af 82, BUN/Creatinine Ratio 12.9, Glucose 90, Calcium 8.3 L, Magnesium 2.1 03/26/18 03:05: APTT 61.8 H 03/26/18 07:17: Activated Clotting Time 131 Diagnostic Data Chest X-Ray 03/26/18 05:55 IMPRESSION: Normal x-ray examination of the chest. Aortic balloon pump in its expected location. Electronically Signed: Omi Lemons MD at 5:07 EST , Service support , Current Medications Acetaminophen (Tylenol) 650 mg PO Q6H PRN PRN PRN Reason: Mild Pain (0-2/10) Last Admin: 03/24/18 21:06 Dose: 650 mg Aspirin (Ecotrin) 81 mg PO DAILY@0800 [facility] Last Admin: 03/26/18 08:44 Dose: 81 mg Atorvastatin Calcium (Lipitor) 80 mg PO QHS [facility] Last Admin: 03/25/18 21:31 Dose: 80 mg Atropine Sulfate () 0.5 mg IV UD PRN PRN Reason: HR <50 bpm Diazepam (Valium) 5 mg PO Q6H PRN PRN PRN Reason: BACK SPASMS/ANXIETY Sodium Chloride () 250 mls @ 15 mls/hr IV .[id number] PRN PRN Reason: SALINE FLUSH Sodium Chloride () 500 mls @ 15 mls/hr IV .[id number] PRN PRN Reason: SALINE FLUSH Lisinopril (Zestril) 5 mg PO DAILY [facility] Last Admin: 03/26/18 08:44 Dose: 5 mg Metoclopramide HCl (Reglan) 5 mg IV Q6H PRN PRN Reason: NAUSEA/VOMITING Metoprolol Tartrate (Lopressor (Beta Iman)) 12.5 mg PO BID [facility] Last Admin: 03/26/18 08:45 Dose: 12.5 mg Morphine Sulfate () 2 mg IV Q4H PRN PRN PRN Reason: Mild back pain (0-2/10) Last Admin: 03/24/18 23:34 Dose: 2 mg Oxycodone HCl (Oxyir) 5 - 10 mg PO Q4H PRN PRN PRN Reason: SEVERE PAIN (6-10/10) Last Admin: 03/26/18 08:48 Dose: 10 mg [facility] Last Admin: 03/26/18 08:48 Dose: 20 meq Sodium Chloride () 500 ml IV BOLUS PRN PRN Reason: VASO-VAGAL PROTOCOL Sodium Chloride () 5 - 30 ml IV UD PRN PRN Reason: SALINE FLUSH Last Admin: 03/25/18 04:53 Dose: 10 ml Ticagrelor (Brilinta) 90 mg PO BID [facility] Last Admin: 03/26/18 08:44 Dose: 90 mg Zolpidem Tartrate (Ambien (Generic)) 5 mg PO QHS PRN PRN PRN Reason: INSOMNIA Last Admin: 03/25/18 21:31 Dose: 5 mg Medical Necessity - Tobacco Use Smoking Status: Current every day smoker Tobacco Use: Cigarettes Assessment/Plan All Active Problems (Last Updated 03/24/18 @ 08:57 by Tegan Asher) ST elevation CT (STEMI) (Acute) Chest pain (Acute) 1. STEMI s/p cath * today is POD 1. Had YAMILA placed in LAD due to 100% occlusion. Had intraortic balloon pump put in place afterwards * has no complaints today. Feels well * Intra-aortic balloon pump placed after surgery but this was removed today he feels well. * on aspirin, Brilinta, metoprolol, lisinopril and atorvastatin * cardiology on board * to have stress test in 4 weeks time to evaluate for ischemia related to 50% blockage in circumflex lesion * 2. Hypertension: controlled. On metoprolol 3. Nonsustained ventricular tachycardia: Stable. Has resolved. 4. Low-grade fever: * Temperature 99.5 after procedure. He has no obvious source of infection. * Chest x-ray done today showed no obvious lung pathology. * Likely reactive after surgery. Will monitor. Tylenol as needed. * 5. Nicotine dependence: counselled to quit 6. Leukocytosis: * White cell count is 12.7 today. * Again no obvious source of infection. * Likely reactive. * Will monitor and if it continues trending up we will order cultures and UA. * DVT prophylaxis: SCDs Code Visit Inpatient E&M: 65590 Subs Hosp L3
[2018-03-26] MEDS: Zolpidem Tartrate 5 MG Tablet PO (21:42)
[2018-03-26] MEDS: Atorvastatin Calcium 80 MG Tablet PO (21:42)
[2018-03-27] VITALS (19 sets, daily range): BP systolic 109–138; BP diastolic 59–101; PULSE 68–99; RESP 13–23; TEMP 36.3–36.8; O2SAT 92–100
--- NOTE | 2018-03-27 08:22 | ECHOCS_ITS ---
Reason For Study: CAD/ASHD Procedure This was a 2D Doppler, Color Flow transthoracic echocardiogram. Contrast injection was performed. Exam performed portable in ICU/CCU. Left Ventricle Normal size and thickness. The estimated ejection fraction is 55 %. Stage 1 diastolic dysfunction. There are regional wall motion abnormalities as specified. Mid-Anterior : Hypokinetic. Mid- anteroseptal : Mildly hypokinetic. Right Ventricle Normal size and thickness. Normal systolic function. Atria Normal left atrium. Normal right atrium. Normal atrial septum. Mitral Valve The mitral valve is structurally normal. No prolapse or stenosis seen. Tricuspid Valve Normal tricuspid valve. Trivial tricuspid valve insufficiency. Right ventricular systolic pressure estimated to be 28 mmHg. Aortic Valve Normal aortic valve. Trisinus/trileaflet aortic valve. Pulmonic Valve Normal pulmonic valve. Trivial eccentric pulmonic valve insufficiency. Great Vessels Normal aortic root. Normal arch. Normal inferior vena cava. Inferior vena cava collapse with sniff. Pericardium/Pleural No pericardial effusion. Medication Diluted definity 4ml given slow IV push to enhance endocardial definition. MMode/2D Measurements & Calculations LVIDd: 5.0 cm IVSd: 1.3 cm Ao root diam: 4.2 cm LVIDs: 3.5 cm LVPWd: 1.3 cm LA dimension: 3.4 cm RVDd: 3.3 cm FS: 29.8 % LAV(MOD-bp): 47.2 ml LA A4 area: 15.5 cm2 RA A4 area: 14.3 cm2 LAV(MOD-bp) Indexed: 22.4 ml/m2 LAV(MOD-sp2): 51.8 ml LAV(MOD-sp4): 40.2 ml Time Measurements MV dec time: 0.21 sec Doppler Measurements & Calculations MV E max hoang: 61.6 cm/sec Med Peak E' Hoang: 7.5 cm/sec MV V2 max: 112.7 cm/sec MV A max hoang: 93.8 cm/sec E/E' med: 8.2 MV max P.1 mmHg MV E/A: 0.66 MV V2 mean: 58.8 cm/sec MV mean P.6 mmHg MV V2 VTI: 30.8 cm LV V1 max: 139.0 cm/sec PA V2 max: 94.4 cm/sec TR max hoang: 237.3 cm/sec LV V1 max P.7 mmHg TR max P.5 mmHg LV V1 mean P.9 mmHg LV V1 mean: 90.4 cm/sec LV V1 VTI: 26.1 cm Interpretation Summary The estimated ejection fraction is 55 %. Mid-Anterior : Hypokinetic Mid-anteroseptal : Mildly hypokinetic Stage 1 diastolic dysfunction. Trivial tricuspid valve insufficiency. Right ventricular systolic pressure estimated to be 28 mmHg. There is no comparison study available. The study was technically difficult. Contrast injection was performed. Ordering Physician: Dustin Singh MD Referring Physician: Esa Sparrow MD Performed By: John Feliciano RCS
--- NOTE | 2018-03-27 09:05 | PCM.PN.CARD ---
Subjectve: Patient doing very well, no 24-hour events, intruding balloon pump removed yesterday without complications. Right groin is clean/dry/intact without evidence of hematoma, thrills or bruits. Mild medial ecchymosis which was present yesterday prior to removal. Telemetry negative. EKG shows normal sinus rhythm with resolving anterior lateral ST elevation and T wave inversion. Objective: Vital Signs Temp Pulse Resp BP Pulse Ox 97.8 F 71 16 120/88 H 96 03/27/18 04:00 03/27/18 08:00 03/27/18 08:00 03/27/18 08:00 03/27/18 08:00 Oxygen Flow Rate (L/min) 2 Oxygen Delivery Method Room Air Weight: 217 lb 6.012 oz Body Mass Index (BMI) 29.2 Intake and Output for Last 24 Hours 03/25/18 03/26/18 03/27/18 23:59 23:59 23:59 Intake Total 2405.4 / 2405.4 2267.4 / 2267.4 500 / 500 Output Total 1560 / 1560 2105 / 2105 800 / 800 Balance 845.4 / 845.4 162.4 / 162.4 -300 / -300 General: Awake, Alert, Oriented x 3 HEENT: PERRL, EOMI, Sclera Non Icteric Neck: Supple, Good ROM, No Lymph Node Enlargement Lungs: Clear to auscultation Cardiovascular: Regular Rhythm, Normal S1, Normal S2, No Murmurs, No Rubs, No Gallops Vascular: No Carotid Bruits, Normal Femoral Pulses, Normal Radial Pulses, Normal Dorsalis Pedal Pulse, Normal Posterior Tibial Pulses Abdomen: Bowel Sounds Present, Soft, Non Tender, No HSM, No Organomegaly Extremities: No Cyanosis, No Clubbing, No edema Neurological: No Focal Motor or Sensory Deficit Rhythm: EKG: ECHO: Stress Test: Cardiac Cath: PCI: CT Surgery: Holter monitor: EPS: PPM: CXR: Chest CT Scan: Medical Necessity - Tobacco Use Smoking Status: Current every day smoker Tobacco Use: Cigarettes Assessment/Plan 1. Coronary artery disease: The patient presents with acute anterior wall myocardial infarction with a peak troponin of about 10, and moderate to severe anterior LV dysfunction with an EF around 35% post procedure. Echocardiogram was ordered but apparently was not performed. I have reordered the echocardiogram for this morning. He received a single drug-eluting stent to the proximal LAD followed by intra-aortic balloon pump placement for about 48 hours. Intra-aortic balloon pump removed yesterday, patient is doing fairly well. No medicine adjustments required at this time. This point he will continue baby aspirin, Brilinta, lisinopril and beta-blockers. I recommended he undergo a stress test in 3-4 weeks time to evaluate his left circumflex territory. If he has any inferior lateral ischemia on stress testing, I have a low threshold for repeat catheterization and elective angioplasty of his left circumflex. Pending the outcome of the echo the patient may be discharged home. We will repeat echocardiogram in 3-4 months time after he has completed cardiac rehab and assuming he does not require any additional stenting of his left circumflex. Patient will need to be off work for 2 weeks time, followed by a stress echocardiogram to evaluate his left circumflex territory. 2. Hyperlipidemia: Continue Lipitor therapy. Repeat lipid profile in 6 weeks time. 3. Patient may be discharged home today after his echocardiogram. He will follow-up with Dr. Singh going forward. He will see us in the office in 2 weeks time for a groin check and EKG. 4. Thank you very much for the opportunity to participate in the cardiac care of your patient. Code Visit Inpatient E&M: 57992 Subs Hosp L2
--- NOTE | 2018-03-27 09:09 | PN.CARD_ITS ---
Subjectve: Patient doing very well, no 24-hour events, intruding balloon pump removed yesterday without complications. Right groin is clean/dry/intact without e vidence of hematoma, thrills or bruits. Mild medial ecchymosis which was present yesterday prior to removal. Telemetry negative. EKG shows normal sinus rhythm with resolving anterior lateral ST elevation and T wave inversion. Objective: Vital Signs Temp Pulse Resp BP Pulse Ox 97.8 F 71 16 120/88 H 96 03/27/18 04:00 03/27/18 08:00 03/27/18 08:00 03/27/18 08:00 03/27/18 08:00 Oxygen Flow Rate (L/min) 2 Oxygen Delivery Method Room Air Weight: 217 lb 6.012 oz Body Mass Index (BMI) 29.2 Intake and Output for Last 24 Hours 03/25/18 03/26/18 03/27/18 23:59 23:59 23:59 Intake Total 2405.4 / 2405.4 2267.4 / 2267.4 500 / 500 Output Total 1560 / 1560 2105 / 2105 800 / 800 Balance 845.4 / 845.4 162.4 / 162.4 -300 / -300 General: Awake, Alert, Oriented x 3 HEENT: PERRL, EOMI, Sclera Non Icteric Neck: Supple, Good ROM, No Lymph Node Enlargement Lungs: Clear to auscultation Cardiovascular: Regular Rhythm, Normal S1, Normal S2, No Murmurs, No Rubs, No Gallops Vascular: No Carotid Bruits, Normal Femoral Pulses, Normal Radial Pulses, Normal Dorsalis Pedal Pulse, Normal Posterior Tibial Pulses Abdomen: Bowel Sounds Present, Soft, Non Tender, No HSM, No Organomegaly Extremities: No Cyanosis, No Clubbing, No edema Neurological: No Focal Motor or Sensory Deficit Rhythm: EKG: ECHO: Stress Test: Cardiac Cath: PCI: CT Surgery: Holter monitor: EPS: PPM: CXR: Chest CT Scan: Medical Necessity - Tobacco Use Smoking Status: Current every day smoker Tobacco Use: Cigarettes Assessment/Plan 1. Coronary artery disease: The patient presents with acute anterior wall myocardial infarction with a peak troponin of about 10, and moderate to severe anterior LV dysfunction with an EF around 35% post procedure. Echocardiogram was ordered but apparently was not performed. I have reordered the echocardiogram for this morning. He received a single drug-eluting stent to the proximal LAD followed by intra-aortic balloon pump placement for about 48 hours. Intra-aortic balloon pump removed yesterday, patient is doing fairly well. No medicine adjustments required at this time. This point he will continue baby aspirin, Brilinta, lisinopril and beta- blockers. I recommended he undergo a stress test in 3-4 weeks time to evaluate his left circumflex territory. If he has any inferior lateral ischemia on stress testing, I have a low threshold for repeat catheterization and elective angioplasty of his left circumflex. Pending the outcome of the echo the patient may be discharged home. We will repeat echocardiogram in 3-4 months time after he has completed cardiac rehab and assuming he does not require any additional stenting of his left circumflex. Patient will need to be off work for 2 weeks time, followed by a stress echocardiogram to evaluate his left circumflex territory. 2. Hyperlipidemia: Continue Lipitor therapy. Repeat lipid profile in 6 weeks time. 3. Patient may be discharged home today after his echocardiogram. He will follow-up with Dr. Singh going forward. He will see us in the office in 2 weeks time for a groin check and EKG. 4. Thank you very much for the opportunity to participate in the cardiac care of your patient. Code Visit Inpatient E&M: 19379 Subs Hosp L2
--- NOTE | 2018-03-27 10:00 | EKG12_ITS ---
Test Reason : AM EKG Blood Pressure : / mmHG Vent. Rate : 076 BPM Atrial Rate : 076 BPM P-R Int : 168 ms QRS Dur : 098 ms QT Int : 402 ms P-R-T Axes : 047 003 107 degrees QTc Int : 452 ms Normal sinus rhythm Septal infarct , age undetermined T wave abnormality, consider anterolateral ischemia Abnormal ECG When compared with ECG of 26-MAR-2018 05:22, MANUAL COMPARISON REQUIRED, DATA IS UNCONFIRMED Confirmed by IRMA BATISTA, ELDON ([id number]), manager editorial BRUCE ARMSTRONG ([id number]) on 03/30/2018 2:10:30 PM Referred By: Zayra Glaser Confirmed By:ELDON SOLIS MD
[2018-03-27] MEDS: Aspirin E.C. 81 MG Tablet PO (10:17)
[2018-03-27] MEDS: Metoprolol Tartrate 25 MG Tablet 12.5 MG PO (10:18)
[2018-03-27] MEDS: TICAGRELOR 90 MG TABLET PO (10:18)
[2018-03-27] MEDS: Lisinopril 5 MG Tablet PO (10:18)
--- NOTE | 2018-03-27 10:50 | CASEMGMT ---
Social Work: Attended ICU rounds. Patient denies needs at D/C. SW to be available to assist if D/C needs arise. PLAN: Patient to be discharged home with not needs. JUAN DAVID Vazquez
--- NOTE | 2018-03-27 16:58 | DCINST_ITS ---
- Discharge Diagnoses Current Active Problems: Current Active and Chronic Problems (Last Updated 03/24/18 @ 08:57 by Tegan Asher) ST elevation [place] (STEMI) (Acute) Hypertension (Chronic) Obesity (BMI 30.0-34.9) (Chronic) Nicotine dependence (Chronic) Cystic acne (Chronic) You will use the following diet at home:: No restrictions Your food should be the consistency of: Regular Your liquids should be the consistency of: Regular/Thin Discharge Activity: Return to Normal Activity Weight Bearing Status: Full weight bearing Allergies/Adverse Reactions: Allergies bee venom protein (honey bee) Allergy (Verified 03/24/18 09:10) Unknown Medications to take at Discharge Acetaminophen [Tylenol Tablet] 650 mg PO Q6H PRN PRN tablet 03/27/18 Aspirin E.C. [Ecotrin] 81 mg PO DAILY@0800 tablet 03/27/18 Atorvastatin Calcium [Lipitor] 80 mg PO QHS #30 tablet 03/27/18 Lisinopril [Zestril] 5 mg PO DAILY #30 tablet 03/27/18 Metoprolol Tartrate [Lopressor (beta phillip)] 12.5 mg PO BID #30 tablet 03/27/18 Ticagrelor [Brilinta] 90 mg PO BID #60 tablet 03/27/18 The following prescriptions were given: Atorvastatin Calcium [Lipitor] 80 mg PO QHS #30 tablet Lisinopril [Zestril] 5 mg PO DAILY #30 tablet Metoprolol Tartrate [Lopressor (beta phillip)] 12.5 mg PO BID #30 tablet Ticagrelor [Brilinta] 90 mg PO BID #60 tablet Primary Care Physician: Patrick Sparrow MD [Primary Care Provider] - Please follow up with your Primary Care Physician in: in 3 weeks Test Results: Test results from this visit will be discussed in further detail at your follow- up appointment, if applicable. Please Follow Up With: Dustin Singh MD When: as directed
--- NOTE | 2018-03-29 15:13 | DS.PCM_ITS ---
Discharge Date and Diagnosis Date of Admission: 03/24/18 Date of Discharge: 03/27/18 - Primary Discharge Diagnosis #1 type I acute myocardial infarction with ST elevation secondary to occlusion of the proximal LAD #2 coronary artery disease-occlusive #3 hyperlipidemia #4 hypertension #5 nonsustained ventricular tachycardia #6 acute blood loss anemia has an expected consequence of acute myocardial infarction with intervention - Secondary Discharge Diagnosis Chronic Problems (Last Updated 03/24/18 @ 08:57 by Tegan Asher) Hypertension (Chronic) Obesity (BMI 30.0-34.9) (Chronic) Nicotine dependence (Chronic) Cystic acne (Chronic) Hospital Course and Treatment Operations: None Procedures: 2-D Echocardiogram, Cardiac catheterization - With drug-eluting stent placement, - - Placement of intra-aortic balloon pump Summary of Care Provided: The patient is a 52 year old M who was seen in the emergency room at [facility] with a chief complaint of chest pain, workup in the emergency room showed ST elevations and V1 with reciprocal depressions in 2 3 and aVF, patient was felt to have had a STEMI, the STEMI team was activated and Dr. Singh took the patient for cardiac catheterization where a drug-eluting stent was placed in the LAD after patient underwent a successful PTCA. Patient was admitted to the ICU and subsequently had insertion of an intra-aortic balloon pump. Medications were adjusted by cardiology, there is noted to be a slight drop in the patient's hemoglobin during his hospitalization. On 03/27/18, patient was seen and examined: On examination he appeared in good health and spirits. Vital signs as documented. Skin warm and dry and without overt rashes. Neck without JVD. Lungs clear. Heart exam notable for regular rhythm, normal sounds and absence of murmurs, rubs or gallops. Abdomen unremarkable and without evidence of organomegaly, masses, or abdominal aortic enlargement. Extremities nonedematous. Neuro: Cranial nerves II through XII are grossly intact, no focal motor deficits were noted. Psych: Patient was alert and oriented x3, he did not appear depressed or anxious. On 03/27/18, patient was seen and examined and felt to be in stable condition for discharge home - Physical Exam Vital Signs Temp Pulse Resp BP Pulse Ox 98.3 F 77 20 H 125/76 H 94 03/27/18 16:00 03/27/18 16:00 03/27/18 16:00 03/27/18 16:00 03/27/18 16:00 Oxygen Flow Rate (L/min) 2 Oxygen Delivery Method Room Air Weight: 98.6 kg Body Mass Index (BMI) 29.2 Intake and Output for Last 24 Hours 03/27/18 03/28/18 03/29/18 23:59 23:59 23:59 Intake Total 900 / 900 Output Total 800 / 800 Balance 100 / 100 Discharge Activity: Return to Normal Activity Weight Bearing Status: Full weight bearing Home Medications: Medications to take at Discharge Acetaminophen [Tylenol Tablet] 650 mg PO Q6H PRN PRN tablet 03/27/18 Aspirin E.C. [Ecotrin] 81 mg PO DAILY@0800 tablet 03/27/18 Atorvastatin Calcium [Lipitor] 80 mg PO QHS #30 tablet 03/27/18 Lisinopril [Zestril] 5 mg PO DAILY #30 tablet 03/27/18 Metoprolol Tartrate [Lopressor (beta iman)] 12.5 mg PO BID #30 tablet 03/27/18 Ticagrelor [Brilinta] 90 mg PO BID #60 tablet 03/27/18 Following Prescrptions Were Given to Patient: Atorvastatin Calcium [Lipitor] 80 mg PO QHS #30 tablet Lisinopril [Zestril] 5 mg PO DAILY #30 tablet Metoprolol Tartrate [Lopressor (beta iman)] 12.5 mg PO BID #30 tablet Ticagrelor [Brilinta] 90 mg PO BID #60 tablet Primary Care Physician: Patrick Sparrow MD [Primary Care Provider] - Please follow up with your Primary Care Physician in: in 3 weeks Please Follow Up With: Dustin Singh MD When: as directed Disposition: Home Minutes spent on discharge:: 32 Patient Condition:: Stable Medical Necessity - Tobacco Use Smoking Status: Current every day smoker Tobacco Use: Cigarettes Meaningful Use Info Meaningful Use Diagnoses (Choose all that apply): AMI - AMI Aspirin given w/in 24hrs of arrival?: Yes ASA at discharge?: Yes Statins at discharge?: Yes Petros/ARB at discharge?: Yes Beta Iman at discharge?: Yes Done w/ Acute TX measure.: Yes Code Visit Inpatient E&M: 88148 Disch Hosp
== END 2018-03-27 17:10 | disposition home or self-care (01) | DRG 271 ==
LOC: ED 09:19 → ICU 09:54
PROVIDERS: Internal Medicine Cardiovascular Disease; Admitting Provider Internal Medicine; Emergency Provider Emergency Medicine; Family Provider Family Medicine; PCP Family Medicine; Referring Provider Internal Medicine; Visit Provider Internal Medicine
DX: I21.02 ST elevation (STEMI) myocardial infarction involving left anterior descending coronary artery (principal); I47.2 Ventricular tachycardia; I25.10 Atherosclerotic heart disease of native coronary artery without angina pectoris; E78.5 Hyperlipidemia, unspecified; I10 Essential (primary) hypertension; F17.210 Nicotine dependence, cigarettes, uncomplicated; Z79.899 Other long term (current) drug therapy; L70.0 Acne vulgaris
CPT/HCPCS: 33967; 71045; 80048; 80053; 80061; 83036; 83735; 84484; 85025; 85027; 85347; 85610; 85730; 92941; 93005; 93306; 93458; 99282; J7030; Q9957; A4216; C1725; C1757; C1769; C1874; C1887; C1894; C8929; C9606; Q9967

== ENCOUNTER → 2018-04-16 12:53 | Outpatient (CLI) | payer OTHER, SELFPAY ==
[2018-03-26 07:30] VITALS: BMI 29.5
[2018-04-12 15:06] VITALS: BMI 31.3
--- NOTE | 2018-04-16 12:54 | ECHOD_ITS ---
Reason For Study: CAD/ASHD Procedure This was a 2D Doppler, Color Flow transthoracic echocardiogram. Exam performed in department. Left Ventricle Normal size and thickness. Apical false tendon noted. The estimated ejection fraction is 65 %. Normal diastology for age. No regional wall motion abnormalities noted. Right Ventricle Normal size and thickness. Normal systolic function. Atria Normal left atrium. Normal right atrium. Normal atrial septum. Mitral Valve The mitral valve is structurally normal. No prolapse or stenosis seen. Trivial mitral valve insufficiency. Tricuspid Valve Normal tricuspid valve. Trivial tricuspid valve insufficiency. Right ventricular systolic pressure estimated to be 26 mmHg. Aortic Valve Normal aortic valve. Trisinus/trileaflet aortic valve. Pulmonic Valve Normal pulmonic valve. Trivial pulmonic valve insufficiency. Great Vessels Normal aortic root. Normal arch. Normal inferior vena cava. Inferior vena cava collapse with sniff. Pericardium/Pleural No pericardial effusion. MMode/2D Measurements & Calculations LVIDd: 4.9 cm IVSd: 1.4 cm Ao root diam: 4.3 cm LVIDs: 3.5 cm LVPWd: 1.2 cm LA dimension: 3.4 cm RVDd: 3.4 cm FS: 28.0 % LAV(MOD-bp): 52.8 ml LVAd ap4: 32.5 cm2 SV(MOD-sp4): 64.1 ml LAV(MOD-bp) Indexed: 25.6 ml/m2 EDV(MOD-sp4): 105.4 ml LAV(MOD-sp2): 54.6 ml EDV(sp4-el): 110.9 ml LAV(MOD-sp4): 48.5 ml LVAs ap4: 18.6 cm2 ESV(MOD-sp4): 41.4 ml ESV(sp4-el): 43.6 ml EF(MOD-sp4): 60.8 % EF(sp4-el): 60.7 % SV(sp4-el): 67.3 ml LA A4 area: 18.5 cm2 RA A4 area: 15.4 cm2 Time Measurements MV dec time: 0.19 sec Doppler Measurements & Calculations MV E max hoang: 87.7 cm/sec Lat Peak E' Hoang: 5.4 cm/sec Med Peak E' Hoang: 6.3 cm/sec MV A max hoang: 73.7 cm/sec E/E' lat: 16.4 E/E' med: 13.9 MV E/A: 1.2 MV V2 max: 100.8 cm/sec MV P1/2t max hoang: 100.8 cm/sec Ao V2 max: 114.0 cm/sec MV max P.1 mmHg MV P1/2t: 63.5 msec Ao max P.2 mmHg MV V2 mean: 50.0 cm/sec Ao V2 mean: 74.1 cm/sec MV mean P.2 mmHg MV dec slope: 465.2 cm/sec2 Ao mean P.5 mmHg MV V2 VTI: 29.0 cm MVA(P1/2t): 3.5 cm2 Ao V2 VTI: 20.3 cm LV V1 max: 108.0 cm/sec MR max hoang: 713.0 cm/sec PA V2 max: 82.8 cm/sec LV V1 max P.7 mmHg MR max P.4 mmHg LV V1 mean P.3 mmHg LV V1 mean: 69.9 cm/sec LV V1 VTI: 22.6 cm TR max hoang: 228.2 cm/sec TR max P.8 mmHg Interpretation Summary The estimated ejection fraction is 65 %. Normal diastology for age. Trivial tricuspid valve insufficiency. Right ventricular systolic pressure estimated to be 26 mmHg. Compared to echo report dated 03/27/2018, LV function has normalized and anterior hypokinesis has resolved. Ordering Physician: Dustin Singh Referring Physician: Esa Sparrow MD Performed By: John Feliciano RCS
--- OUTSIDE RECORDS SUMMARY | 2018-07-19 03:39 | XMS RPT_ITS ---
:1965 Author Organization [place] Support Name Relationship Address Phone SARINA WINCHESTER Unavailable [address] + [place] [address] [facility] Unavailable [address] + [place] [address] SARINA WINCHESTER Unavailable [address] + [place] [address] [facility] Unavailable [address] + [place] [address] SARINA WINCHESTER Unavailable [address] + [place] [address] [facility] Unavailable [address] + [place] [address] ZACARIAS WINCHESTERYL Unavailable [address] + [place] [address] [facility] Unavailable [address] + [place] [address] ZACARIAS WINCHESTERYL Unavailable [address] + [place] [address] [facility] Unavailable [address] + [place] [address] ZACARIAS WINCHESTERYL Unavailable [address] + [place] [address] [facility] Unavailable [address] + [place] [address] ZACARIAS WINCHESTERYL Unavailable [address] + [place] [address] [facility] Unavailable [address] + [place] [address] ZACARIAS WINCHESTERYL Unavailable [address] + [place] [address] [facility] Unavailable [address] + [place] [address] ANNABELLA, SARINA Unavailable [address] + [place] [address] [facility] Unavailable [address] + [place] [address] ANNABELLA, SARINA Unavailable [address] + [place] [address] [facility] Unavailable [address] + [place] [address] ANNABELLA, SARINA Unavailable [address] + [place] [address] [facility] Unavailable [address] + [place] [address] ANNABELLA, SARINA Unavailable [address] + [place] [address] [facility] Unavailable [address] + [place] [address] ANNABELLA, SARINA Unavailable [address] + [place] [address] [facility] Unavailable [address] + [place] [address] ANNABELLA, SARINA Unavailable [address] + [place] [address] [facility] Unavailable [address] + [place] [address] ANNABELLA, SARINA Unavailable [address] + [place] [address] [facility] Unavailable [address] + [place] [address] ANNABELLA, SARINA Unavailable [address] + [place] [address] [facility] Unavailable [address] + [place] [address] ANNABELLA, SARINA Unavailable [address] + [place] [address] [facility] Unavailable [address] + [place] [address] ANNABELLA, SARINA Unavailable [address] + [place] [address] [facility] Unavailable [address] + [place] [address] ANNABELLA SARINA Unavailable [address] + [place] [address] [facility] Unavailable [address] + [place] [address] ANNABELLA, SARINA Unavailable [address] + [place] [address] [facility] Unavailable [address] + [place] [address] ANNABELLA, SARINA Unavailable [address] + [place] [address] [facility] Unavailable [address] + [place] [address] ANNABELLA, SARINA Unavailable [address] + [place] [address] [facility] Unavailable [address] + [place] [address] ANNABELLA, SARINA Unavailable [address] + [place] [address] [facility] Unavailable [address] + [place] [address] ANNABELLA SARINA Unavailable [address] + [place] [address] [facility] Unavailable [address] + [place] [address] Care Team Providers Name Role Phone Dutsin Singh Attending Unavailable Dustin Singh Referring Unavailable [facility] Unavailable Phyllis Buchanan Attending Unavailable [facility] Referring Unavailable Sementi, Mildred Admitting Unavailable Ronald Palacios Attending Unavailable Sementi, Mildred Referring Unavailable [facility] Primary Care Unavailable Dustin Singh Consulting Unavailable Ronald Palacios Consulting Unavailable Sementi, Mildred Admitting Unavailable Dustin Singh Attending Unavailable Sementi, Mildred Referring Unavailable [facility] Care Unavailable Endy, Jac Consulting Unavailable Tereletsky, Ronald Consulting Unavailable Sementi, Mildred Admitting Unavailable Vinod, Ellie Zita Attending Unavailable Sementi, Mildred Referring Unavailable [facility] Primary Care Unavailable Endy, [place] Consulting Unavailable Koram, Ellie Zita Consulting Unavailable Sementi, Mildred Admitting Unavailable Dustin Singh Attending Unavailable Sementi, Mildred Referring [facility]available Endy, [place] Consulting Unavailable Sementi, Mildred Consulting Unavailable Sementi, Mildred Admitting Unavailable Sementi, Mildred Attending Unavailable Sementi, Mildred Referring [facility] Unavailable Endy, [place] Consulting Unavailable Sementi, Mildred Consulting Unavailable Sementi, Mildred Admitting Unavailable Sementi, Mildred Attending Unavailable Sementi, Mildred Referring Unavailable [facility] Unavailable Sementi, Mildred Consulting Unavailable [facility] Unavailable Sementi, Mildred Admitting Unavailable Sementi, Mildred Referring Unavailable Endy, Jac Consulting Unavailable TereletskyRonald Attending Unavailable Margo Jang Attending Unavailable [facility] Referring Unavailable Dustin Singh Attending Unavailable Singh, Dustin Referring Unavailable SinghDeonteel Attending Unavailable Singh, Dustin [facility]available Howie Wallace Attending Unavailable Singh, Dustin Attending Unavailable Singh, Dustin Referring Unavailable Phyllis Buchanan Attending Unavailable Ranney, Christopher Referring Unavailable SinghDeonteel Attending Unavailable Singh, Dustin Referring [facility] Unavailable Singh, Dustin Consulting Unavailable Singh, Dustin Attending Unavailable Singh, Dustin Referring Unavailable [facility] Unavailable SinghDeonteel Attending Unavailable Singh, Dustin Referring Unavailable [facility] Unavailable Singh, Dustin Consulting Unavailable Singh, Dustin Attending Unavailable Singh, Dustin Referring Unavailable [facility] Unavailable Singh, Dustin Consulting Unavailable Singh, Dustin Attending Unavailable Singh, Dustin Referring Unavailable [facility] Unavailable Singh, Dustin Attending Unavailable Singh, Dustin Referring Unavailable [facility] Unavailable Endy, Jac Attending Unavailable Singh, Dustin Referring Unavailable Singh, Dustin Attending Unavailable Singh, Dustin Referring Unavailable Singh, Dustin Attending Unavailable Ranney, Christopher Referring Unavailable PROBLEMS PROBLEMS DATE TYPE CONDITION / CODE ATTENDING STATUS SOURCE Unknown I25.10 - Atherosclerotic Taurus Buchanan 9 heart disease of algaaciq Phyllis Iverson [facility] coronary artery without Hospital angina pectoris / Repository I25.10(ICD-10) Unknown I10 - Essential (primary) Dewayne Active [place] 9 hypertension / Phyllis Iverson [facility] I10(ICD-10) Hospital Repository Unknown E78.00 - Pure Dewayne, Active [place] 9 hypercholesterolemia, Phyllis Iverson [facility] unspecified / Hospital E78.00(ICD-10) Repository Unknown E78.0 - Pure [place]ayne, Active [place] 9 hypercholesterolemia / Phyllis Iverson [facility] E78.0(ICD-10) Hospital Repository Unknown R94.31 - Abnormal Dustin Singh Active [place] 9 electrocardiogram [ECG] Community [EKG] / R94.31(ICD-10) Hospital Repository Unknown R94.39 - Abnormal result Dustin Singh Active [place] 9 of other cardiovascular Community function study / Hospital R94.39(ICD-10) Repository Unknown E78.5 - Hyperlipidemia, Dustin Singh Active [place] 8 unspecified / Community E78.5(ICD-10) Hospital Repository Unknown F17.200 - Nicotine Dustin Singh Active [place] 8 dependence, unspecified, Community uncomplicated / Hospital F17.200(ICD-10) Repository Unknown I21.3 - ST elevation Endy, [place] Active [place] 8 (STEMI) myocardial Community infarction of unspecified Hospital site / I21.3(ICD-10) Repository Unknown F17.210 - Nicotine Endy, [place] Active [place] 8 dependence, cigarettes, Community uncomplicated / Hospital F17.210(ICD-10) Repository PROCEDURES PROCEDURES No Procedure Records FoundRESULTS RESULTS LIVER PROFILE Collected: 05/18/2018 Status: F Source: [place] 6:40 AM [facility] H[facility] REPOSITORY TYPE CODE TESTS RESULT OUT OF RANGE REFERENCE UNITS LAB L501.1500 6.4-8.2 g/dL Normal T PROT 7.0 LAB L501.1800 3.2-5.0 g/dL Normal ALB 3.9 LAB L501.1950 2.2-4.2 g/dL Normal GLOB 3.1 LAB L501.4100 15-37 U/L Normal AST 19 LAB L501.4305 45-117 U/L Normal ALK P 52 LAB L501.4405 16-61 U/L Normal ALT 52 LAB L501.4600 0.20-1.00 mg/dL Normal T BILI 0.60 LAB L501.4700 0.00-0.30 mg/dL Normal D BILI 0.12 Performed By: #### L500.3400, L500.4100 #### [facility] [address] [place], [address] LIPID PROFILE Collected: 05/18/2018 Status: F Source: [place] 6:[place] AM [facility] [place] CODE TESTS RESULT OUT OF RANGE REFERENCE UNITS LAB L501.4900 200 mg/dL Normal CHOL 115 Result Comment: <200 mg/dL Desirable 200-240 mg/dL Borderline >240 mg/dL High Risk LAB L501.5000 mg/dL Normal TRIG 78 Result Comment: The drugs N-Acetylcysteine and Metamizole may falsely depress this assay. Serum Triglycerides Reference Interval Normal <150 mg/dL Borderline high 150 - 199 mg/dL High 200 - 499 mg/dL Very High > or = 500 mg/dL LAB L501.6400 mg/dL Normal HDL 58 Result Comment: The drugs N-Acetylcysteine and Metamizole may falsely depress this assay. Reference Range HDL <40 mg/dL Low HDL Cholesterol HDL >or= 60 mg/dL High HDL Cholesterol LAB L501.6500 0-130 mg/dL Normal LDL 41 LAB L501.6600 5-40 mg/dL Normal VLDL 16 Performed By: #### L500.3400, L500.4100 #### [facility] [address] [place], [address] CARDIOLOGY VISIT Observed: 05/16/2018 Status: F Source: [place] REPORT 2:29 PM [facility] [place] [facility] [address] [place] [address] OFFICE VISIT Date of Service: 05/15/18 MR#: [id number] Acct: [id number] Name: MICHEAL DILLON Rep #: [id number] : 1965 Provider: Phyllis Buchanan Age/Sex: 52/M Location: [facility] [place] Status: Signed HPI HPI Chief Complaint: Routine f/u Details: MICHEAL DILLON, is a 52 M who presents to the office today for a cardiovascular follow up. Pt recently established with us following an acute anterior wall myocardial infarction on 03/24/2018. He has a history of CAD with stenting to his LAD in 03/2018 and to his circumflex in 03/2018, hypertension, hyperlipidemia and hx of tobacco abuse. Patient presented with substernal chest pain which he thought was reflux disease. When he arrived he had ST segment elevation but no significant troponin release. Later troponin did elevated to greater than 20. He was emergently brought to the [facility] where he was found to have a occluded LAD. He underwent successful angioplasty and stenting receiving a 2.5X 24 Promus Synergy stent, postdilated to 3.0 mm. His care was supplemented with a balloon pump. He also was found to have is possibly significant left circumflex lesion ( this was stented on 04/20/2018) and nonobstructive coronary disease in his RCA. This was re-evaluated after he was released from the hospital with a stress test. Pt was in the ER for lightheadedness. He sts that he awoke with this and it worsened t/o the day. During this visit it was noted that his BP was elevated. We had stopped his low dose metoprolol the day before for fatigue. His BP is elevated today. He does admit to possibly having white coat HTN. We did increase his lisinopril during his ER visit. He notes that he is fatigued but feeling somewhat better. He does still note occasional lightheadedness, the room does not spin. He does not have any worsening SOB. He does not have any chest pain. He does not have any palpitations. He does not have any edema. Intake Vital Signs05/15/18 Body Mass Index (BMI) 31.0 05/15/18 Height 5 ft 9 in 05/15/18 Weight: 215 lb 05/15/18 Body Mass Index (BMI) 31.7 Intake Visit Reasons: F/U, WAS IN [facility] ER - BP ISSUES Accompanied by: Self Is patient in pain?: No Allergies bee venom protein (honey bee) Allergy (Verified 05/15/18 15:38) Unknown Medications Aspirin E.C. [Ecotrin] 81 mg PO DAILY@0800 tab 03/27/18 [Rx Confirmed 05/15/18] atorvastatin 80 mg tablet 80 mg PO QHS #90 tab 04/12/18 [Rx Confirmed 05/15/18] ticagrelor 90 mg tablet 90 mg PO BID #180 tab 04/12/18 [Rx Confirmed 05/15/18] doxycycline hyclate 100 mg tablet 100 mg PO BID 05/15/18 [History Confirmed 05/15/18] lisinopril 20 mg tablet 20 mg PO DAILY #30 tab 05/15/18 [Rx Confirmed 05/15/18] Ejection fraction %: 65 to 70 PFSH Medical History Ventricular tachycardia, nonsustained (Resolved) Hyperlipidemia (Chronic) Atherosclerotic heart disease of algaaciq coronary artery without angina pectoris (Chronic) ST elevation VT (STEMI) (Chronic 03/24/18) Hypertension (Chronic) Nicotine dependence (Chronic) HTN (hypertension) (Chronic) Surgical History Stented coronary artery (Chronic 04/20/18) History of removal of cyst (Resolved) Family History Unknown No problems noted. Social History Smoking Status: Former smoker alcohol intake: never caffeine: Yes Type: coffee Number of servings: 4 ROS Const Const: Positive for fatigue; negative for weakness, fever(s) or headache(s) Eyes Eyes: Negative for blind spots, loss of peripheral vision or transient loss of vision ENT ENT: Negative for headache(s) Cardio Chest Pain: No Palpitations: No Edema: None Muscle aches with walking: None Resp Respiratory: Negative for SOB with activity, SOB at rest, SOB orthopnea\SOB lying down or Cough GI GI: Negative nausea, vomiting, heartburn or vomiting blood/hematemesis : Negative for hematuria Musc Musc: Negative for muscle aches/ myalgia Neuro Neuro: Positive for lightheadedness; negative for weakness or headache(s) Fernando Hematologic/Lymphatic: Negative for easy bleeding Endo Endo: Positive for fatigue Cardiology Exam Const Appearance: cooperative, no acute distress and well developed Orientation: alert, awake and oriented x3 Head Head: normocephalic and atraumatic Mouth: moist mucous membranes Eyes General: appearance normal, both eyes and all related structures Conjunctivae: conjunctivae normal Pupils: PERRL EOM: EOM intact bilaterally Neck Neck: normal visual inspection, no lymphadenopathy and no JVD Carotids: Negative bruit Neck Mass: Negative Neck mass Chest Chest inspection: normal inspection of the chest and symmetric chest movement Auscultation: Bilateral: Clear to Auscultation Cardio Palpation: normal PMI Rate: regular rate Rhythm: regular rhythm Heart sounds: S1 normal and S2 normal; negative rub, gallop or murmur GI GI: normal to inspection, soft, no hepatosplenomegaly and bowel sounds present; negative tender Neuro General: alert, awake, oriented x3, CN's II-XI intact bilaterally and moves all extremities Extremities Pulses: Normal: Right Posterior Tibial Pulse, Left Posterior Tibial Pulse, Right Radial Pulse, Left Radial Pulse Lower Extremity Edema: None: Bilateral Psych Psychological: normal affect Assessment AND Plan 1. Atherosclerosis of algaaciq coronary artery of algaaciq heart without angina pectoris I25.10 STEMI,YAMILA of proximal LAD (2.5 X 24 Promus Synergy) per Dr. Singh @ [facility] Plan - VIKASH Medel Pt has not had any symptoms of angina. He will continue with aggressive medical management. His betablocker was discontinued d/t feeling fatigued. This has improved somewhat. He continues to decline cardiac rehab at this time. He is aware that he needs to stay on his brillinta for at least one year. 2. Essential hypertension I10 Plan - VIKASH Medel BP is still elevated, will have him increase his Lisinopril. He will call next week with and update. Considered adding HCTZ to help with is diastolic pressures, however he had lower K+ readings. If his BP remains elevated reconsider this as he was on Hyzaar prior to his VT. Patient Instructions - VIKASH Medel increase your lisinopril to 20 mg a day 3. Pure hypercholesterolemia E78.00 Plan - VIKASH Medel Pt will continue with high dose statin, will obtian labs in the new future. Plan Detail Other Medications New: Changed: Additional Comments - VIKASH Medel The above patient was discussed with Dr. Singh, he agrees with plan of care. Thank you for allowing us to participate in patient's plan of care, if you have any questions please do not hesitate to call. This note was generated using a voice recognition system and there may be incorrect words, spelling or punctuation errors that were not noted when reviewing the office note prior to saving. Follow Up 05/15/18 (keep as is) Coding Level of Care Code Off vis,est,level 4 Diagnoses Atherosclerosis of algaaciq coronary artery of algaaciq heart without angina pectoris I25.10 [place] vs. transplanted heart: algaaciq heart Essential hypertension I10 Hypertension type: essential hypertension Pure hypercholesterolemia E78.00 Hyperlipidemia type: pure hypercholesterolemia Coding Level of Care Code Off vis,est,level 4 Diagnoses Atherosclerosis of algaaciq coronary artery of algaaciq heart without angina pectoris I25.10 [place] vs. transplanted heart: algaaciq heart Essential hypertension I10 Hypertension type: essential hypertension Pure hypercholesterolemia E78.00 Hyperlipidemia type: pure hypercholesterolemia Supplemental Info Supplemental Information Echocardiogram in 2018 demonstrated: The estimated ejection fraction is 65 %. Normal diastology for age. Trivial tricuspid valve insufficiency. Right ventricular systolic pressure estimated to be 26 mmHg. Compared to echo report dated 03/27/2018, LV function has normalized and anterior hypokinesis has resolved. Stress Echocardiogram in 2018 demonstrated: The estimated ejection fraction is 65 %. Posterior-Basal: Mildly hypokinetic Mid-Lateral : Mildly hypokinetic Abnormal, adequate, treadmill echocardiogram. Positive for ischemia by echocardiographic criteria. No anginal symptoms noted. Hypertensive blood pressure response to exercise. Below average exercise capacity for age. Patient developed mild hypokinesis of the posterior lateral yee at peak exercise consistent with left circumflex territory. Rare PVCs noted during exercise. Test terminated due to dyspnea. Final LVEF of 60%. No complications. Diagnostics Electrocardiogram 05/11/18 Echocardiogram 04/16/18 Stress Echocardiogram 04/17/18 05/16/18 1139 <Electronically signed by Phyllis SUH> Date Phyllis SUH 05/16/18 1429<Electronically signed by Dustin Singh MD> [facility] Signature: Date (if applicable) Dustin Singh MD CC: Esa Sparrow MD 12 LEAD ELECTROCARDIOGRAM Observed: 05/15/2018 Status: F Source: [place] 4:59 PM [facility] [facility] Cardiovascular Services [address] [facility] [place] [address] 12 Lead EKG 05/11/18 0725 MR#: [id number] Acct: [id number] Name: MICHEAL DILLON Rep #: [id number] : 1965 52 From: Jac Schumacher MD Attending Dr: Status: DEP ER Ordering Dr: Howie Wallace DO Date: 05/11/18 Location: ED Sex: M C Admitted: Test Reason : DIZZINESS Blood Pressure : / mmHG Vent. Rate : 086 BPM Atrial Rate : 086 BPM P-R Int : 158 ms QRS Dur : 104 ms QT Int : 382 ms P-R-T Axes : 047 -16 071 degrees QTc Int : 457 ms Sinus rhythm with occasional Premature ventricular complexes Otherwise normal ECG Confirmed by JAC SCHUMACHER MD ([id number]), editorial intern ARJUN HERNANDEZ ([id number]) on 05/15/2018 4:59:40 PM Referred By: JARED Confirmed By:JAC SCHUMACHER MD 05/15/18 1659 Date Jac Schumacher MD CC: Esa Sparrow MD; Howie Wallace Signed EMERGENCY DEPARTMENT Observed: 05/11/2018 Status: F Source: [place] SUMMARY 9:12 AM [facility] Medical Records Department [address] [facility] [place] [address] Emergency Department Summary 05/11/18 0743 MR#: [id number] Acct: [id number] Name: MICHEAL DILLON Rep #: [id number] : 1965 52 From: Howie Painting PCP: Esa Sparrow MD Status: REG ER - ER Visit Summary Date of Service: 05/11/18 Chief Complaint: Lightheaded History of Present Illness: The patient is a 52 M presents for evaluation of lightheaded symptoms this morning. Symptoms worsen with standing, had symptoms in the shower. Mild nausea is resolved. There is no dizzy spinning. No chest pains or shortness of breath. No recent vomiting or diarrhea. Normal stools. Patient reported VT this past March. He is followed by Dr. Singh. He is followed up a week ago in the office, complaint of fatigue with his metoprolol to the nurse practitioner. Reports he was called yesterday at home was told to stop his metoprolol yesterday. He states he did take last night's dose prior to the call. He did not take his metoprolol this morning. Prior to his VT he was on blood pressure medicines this was changed after his VT. States he does have white coat syndrome. Does not know his baseline blood pressure. He does report quitting tobacco. No urinary symptoms. Physical Examination: General: Alert and oriented 3, no acute distress HEENT: Normocephalic, atraumatic. Moist mucosa membranes Neck: supple, nontender. Cardiovascular: Regular rate and rhythm, no murmurs Respiratory: Normal breath sounds, symmetric, no distress Abdomen: Soft, nontender, nondistended Extremities: Nontender, no edema, pulses intact 4 Neuro: no focal neurological deficits. Test Results: EKG: Sinus rate of 86, no ST or T wave changes. PVC noted. Hemoglobin 14.3. Potassium 3.5. Creatinine 1.06. Emergency Department Course and Treatment: Patient had elevated blood pressure in triage 203/118. Heart rate is 86. EKG was sinus rhythm. Patient given gentle IV fluids, orthostatics was negative. He is mildly symptomatic with standing, upon lying states mild spinning. However that resolved. Labs are stable. Monitoring of blood pressure trended down without intervention last blood pressure was 150/90. I discussed with covering scientific glass blower Dr. Jenkins, discussed his medications, will increase his lisinopril to 10 mg daily. 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 He will call Dr. Singh's office for follow-up. Patient was ambulated by myself with no difficulties. Treatment Plan: [] Disposition: Discharge Impression: 1. Near syncope 2. Elevated blood pressure This note was generated with [employer] dictation software. It may contain incorrect words, spelling, and punctuation that were not noted in review of the chart prior to signing ED Disposition - Plan for ED Patient: Disposition: Home or Assisted Living Chief Complaint: Dizziness Diagnosis: Near syncope, Elevated blood pressure reading with diagnosis of hypertension Instructions: ED Near Syncope Unkn Prescriptions: Lisinopril [Zestril] 10 mg PO DAILY #30 tablet Referrals: Patrick Sparrow MD [Primary Care Provider] - Dustin Singh MD [STAFF PHYSICIAN] - 5-7 Days Additional Instructions: Hold your 5 mg lisinopril at home. Start 10 mg dosing tomorrow. stitcher set up operator automatic blood pressure cuff, check your blood pressure in the morning and at night and keep a log. Call Dr. Singh's office for blood pressure readings and follow-up. What to do if you have Problems For any increased pain, shortness of breath, bleeding, nausea or vomiting, chest pain, or any unexpected problems, contact your Primary Care Provider. Call [facility] ([phone]) or report to the closest Emergency Room. Call 911 if necessary. 05/11/18911 <Electronically signed by Howie Painting> Date Howie Painting Cosigner Signature (If Indicated): Date CC: Esa Sparrow MD BASIC METABOLIC Collected: 05/11/2018 Status: F Source: [place] PROFILE (BMP) 7:25 AM [facility] [place] TYPE CODE TESTS RESULT OUT OF RANGE REFERENCE UNITS LAB L501.0100 74-106 mg/dL High GLU 168 Result Comment: Fasting Glucose result greater than or equal to 126 mg/dL suggests DIABETES MELLITUS per A.D.A. criteria. Please note revised GLUCOSE reference range effective 2017. LAB L501.1000 7-18 mg/dL Normal BUN 15 LAB L501.1100 0.70-1.30 mg/dL Normal CREAT,SERUM 1.06 Result Comment: The validity of the calculated GFR AND GFRAA in patients over 70 years has not been determined. Clinical correlation is essential. LAB L501.1110 >60 mL/min Normal EST GFR 78 Result Comment: Non- GFR Calc LAB L501.1115 >60 mL/min Normal EST GFR - AA 94 Result Comment: GFR Calc LAB L501.1255 ml/min Normal Estimated CRCL 81.52 LAB L501.1300 10-20 RATIO Normal BUN/CRE 14.2 LAB L501.2200 8.5-10 mg/dL Normal .1 CA 8.7 LAB L501.5300 136-14 mmol/L Normal 5 NA 139 LAB L501.5600 3.5-5. mmol/L Normal 1 K 3.5 LAB L501.5900 98-107 mmol/L High CL 108 LAB L501.6100 21.0-3 mmol/L Normal 2.0 CO2 22.0 LAB L501.6200 5-15 Normal GAP 9 Performed By: #### L500.2500 #### [facility] [address] [place], [place], [address] CBC W/DIFF, AUTOMATED Collected: 05/11/2018 Status: F Source: [place] 7:[place] AM [facility] [place] CODE TESTS RESULT OUT OF RANGE REFERENCE UNITS LAB L100.1000 4.4-11.0 K/mm3 Normal WBC 9.3 LAB L100.1200 4.6-6.2 M/mm3 Normal RBC 4.76 LAB L100.1300 13.0-16.5 g/dl Normal HGB 14.3 LAB L100.1400 40-54 % Normal HCT 42.6 LAB L100.1500 80-94 fL Normal MCV 89.5 LAB L100.1600 27.0-32.0 pg Normal MCH 30.0 LAB L100.1700 32-36 g/gl Normal MCHC 33.6 LAB L100.1810 11.6-14.6 % Normal RDW CV 13.7 LAB L100.1820 35.1-43.9 fl High RDW SD 44.5 LAB L100.1900 150-450 K/mm3 Normal PLT 276 LAB L100.2000 6.2-12.0 fl Normal MPV 10.8 LAB L100.2100 47-70 % Normal NEUT% 62.6 LAB L100.2200 19-41 % Normal LY% 27.2 LAB L100.2300 0-10 % Normal MONO% 6.5 LAB L100.2400 0-5 % Normal EO% 3.1 LAB L100.2500 0-1 % Normal BASO% 0.4 LAB L100.2550 0.0-0.9 % Normal IM GRAN % 0.200 Result Comment: IG% - Immature Granulocytes (promyelocytes, myelocytes and metamyelocytes) > 1% indicates that a LEFT SHIFT is Present. LAB L100.2620 2.0-7.7 X10 3/uL Normal Absolute Neut 5.8 LAB L100.2720 0.83-4.51 X10 3/ul Normal Absolute Lymph 2.52 Performed By: #### L100.0100 #### [facility] [address] [place], [address] CARDIOLOGY VISIT Observed: 05/04/2018 Status: F Source: [place] RE[place] 4:29 PM [facility] [place] [facility] [address] [place] [address] OFFICE VISIT Date of Service: 05/04/18 MR#: [id number] Acct: [id number] Name: MICHEAL DILLON Rep #: [id number] : 1965 Provider: Phyllis Buchanan Age/Sex: 52/M Location: [facility] Status: Signed HPI HPI Chief Complaint: Routine f/u Details: MICHEAL DILLON, is a 52 M who presents to the office today for a cardiovascular follow up. Pt recently established with us following an acute anterior wall myocardial infarction on 03/24/2018. Patient presented with substernal chest pain which he thought was reflux disease. When he arrived he had ST segment elevation but no significant troponin release. Later troponin did elevated to greater than 20. He was emergently brought to the [facility] where he was found to have a occluded LAD. He underwent successful angioplasty and stenting receiving a 2.5X 24 Promus Synergy stent, postdilated to 3.0 mm. His care was supplemented with a balloon pump. He also was found to have is possibly significant left circumflex lesion and nonobstructive coronary disease in his RCA. This was re-evaluated after he was released from the hospital with a stress test. Pt sts that since being home he has felt fatigued, he feels that this should be better than what it is. He returned to work last week. He is not having any chest pain/heaviness/tightness. He does not have any worsening SOB. He does not have any orthopnea. He does not have any palpitations. He does not have any lightheadedness/dizziness. He does not have any ededma. He sts that he does not sleep well at [facility] [place] this is not new. He has successfully quit smoking, but finding it very difficult Intake Vital Signs05/04/18 Height 5 ft 9 in 05/04/18 Weight: 212 lb 05/04/18 Body Mass Index (BMI) 31.3 05/04/18 Blood Pressure 142/68 H 05/04/18 Blood Pressure Location Lt brachial Intake Visit Reasons: 2 WK S/P PCI Heavy Mobile Equipment Operator Required: No Accompanied by: none Is patient in pain?: No Allergies bee venom protein (honey bee) Allergy (Verified 05/04/18 13:07) Unknown Medications Aspirin E.C. 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 Social History Smoking Status: Former smoker alcohol intake: never ROS Const Const: Positive for fatigue; negative for weakness, fever(s) or headache(s) Eyes Eyes: Negative for blind spots, loss of peripheral vision or transient loss of vision ENT ENT: Negative for headache(s), dizziness, tinnitus or Nosebleed/epistaxis Cardio Chest Pain: No Palpitations: No Edema: None Muscle aches with walking: None Resp Respiratory: Negative for SOB with activity, SOB at rest, SOB orthopnea\SOB lying down or Cough GI GI: Negative nausea, vomiting, heartburn or vomiting blood/hematemesis : Negative for hematuria Musc Musc: Negative for muscle aches/ myalgia Neuro Neuro: Negative for weakness, headache(s), dizziness, near syncope, syncope, lightheadedness or orthostatic symptoms Fernando Hematologic/Lymphatic: Negative for easy bleeding Endo Endo: Positive for fatigue Cardiology Exam Const Appearance: cooperative, no acute distress and well developed Orientation: alert, awake and oriented x3 Head Head: normocephalic and atraumatic Mouth: moist mucous membranes Eyes General: appearance normal, both eyes and all related structures Conjunctivae: conjunctivae normal Pupils: PERRL EOM: EOM intact bilaterally Neck Neck: normal visual inspection, no lymphadenopathy and no JVD Carotids: Negative bruit Neck Mass: Negative Neck mass Chest Chest inspection: normal inspection of the chest and symmetric chest movement Auscultation: Bilateral: Clear to Auscultation Cardio Palpation: normal PMI Rate: regular rate Rhythm: regular rhythm Heart sounds: S1 normal and S2 normal; negative rub, gallop or murmur GI GI: normal to inspection, soft, no hepatosplenomegaly and bowel sounds present; negative tender Neuro General: alert, awake, oriented x3, CN's II-XI intact bilaterally and moves all extremities Extremities Pulses: Normal: Right Posterior Tibial Pulse, Left Posterior Tibial Pulse, Right Radial Pulse, Left Radial Pulse Lower Extremity Edema: None: Bilateral Psych Psychological: normal affect Assessment AND Plan 1. Atherosclerosis of algaaciq coronary artery of algaaciq heart without angina pectoris I25.10 STEMI,YAMILA of proximal LAD (2.5 X 24 Promus Synergy) per Dr. Singh @ [facility] Plan Pt has not had any symptoms of angina. He will continue with aggressive medical management. He declines cardiac rehab at this time. Will re-discuss at next OV. He is aware that he needs to stay on his brillinta for at least one year. 2. Hypertension, unspecified type I10 Plan Blood pressure is well controlled on current medications, we do not recommend any changes at this time. 3. Pure hypercholesterolemia E78.00; E78.0 Plan Pt will continue with high dose statin, will obtian labs in the new future. Plan Detail Additional Comments Thank you for allowing us to participate in patient's plan of care, if you have any questions please do not hesitate to call. This note was generated using a voice recognition system and there may be incorrect words, spelling or punctuation errors that were not noted when reviewing the office note prior to saving. Follow Up 3 Months (MMM) Coding Level of Care Code Off vis,est,level 3 Diagnoses Atherosclerosis of algaaciq coronary artery of algaaciq heart without angina pectoris I25.10 [place] vs. transplanted heart: algaaciq heart Hypertension, unspecified type I10 Hypertension type: unspecified Pure hypercholesterolemia E78.00; E78.0 Hyperlipidemia type: pure hypercholesterolemia Coding Level of Care Code Off vis,est,level 3 Diagnoses Atherosclerosis of algaaciq coronary artery of algaaciq heart without angina pectoris I25.10 [place] vs. transplanted heart: algaaciq heart Hypertension, unspecified type I10 Hypertension type: unspecified Pure hypercholesterolemia E78.00; E78.0 Hyperlipidemia type: pure hypercholesterolemia Supplemental Info Supplemental Information Echocardiogram in 2018 demonstrated: The estimated ejection fraction is 65 %. Normal diastology for age. Trivial tricuspid valve insufficiency. Right ventricular systolic pressure estimated to be 26 mmHg. Compared to echo report dated 03/27/2018, LV function has normalized and anterior hypokinesis has resolved. Stress Echocardiogram in 2018 demonstrated: The estimated ejection fraction is 65 %. Posterior-Basal: Mildly hypokinetic Mid-Lateral : Mildly hypokinetic Abnormal, adequate, treadmill echocardiogram. Positive for ischemia by echocardiographic criteria. No anginal symptoms noted. Hypertensive blood pressure response to exercise. Below average exercise capacity for age. Patient developed mild hypokinesis of the posterior lateral yee at peak exercise consistent with left circumflex territory. Rare PVCs noted during exercise. Test terminated due to dyspnea. Final LVEF of 60%. No complications. Diagnostics Echocardiogram 04/16/18 Stress Echocardiogram 04/17/18 05/04/18 3877 <Electronically signed by Phyllis SUH> Date Phyllis SUH [facility] Signature: Date (if applicable) CC: Esa Sparrow MD DISCHARGE INSTRUCTION Observed: 04/27/2018 Status: F Source: [place] 8:21 AM [facility] [place] [facility] Medical Records Department [address] [place] [address] Instructions for Home/Discharge Instructions 04/20/18 1508 MR#: [id number] Acct: [id number] Name: MICHEAL DILLON Rep #: [id number] : 1965 52 From: Calixto Liao COST ACCOUNTING ANALYST-C PCP: Esa Sparrow MD Status: [place] [facility] [place] Diet: Low fat/ Low Cholesterol Discharge Activity: Return to Normal Activity May shower in (days): 1 May resume sexual activity in: 1-2 weeks Lifting Restrictions: Do not lift anything greater than 10 pounds for 3 days Call your doctor if your incision/area has: Continuous Slow Oozing, Sudden Increased Bleeding, Increased Pain/ Swelling, Increased Redness, Foul Smelling Discharge, Swelling at the incision site Call your doctor if you observe: Fever of 101 or Higher, Shortness of breath, Chest pain Remove Dressing in (days):: 1 Cleanse incision/area with: Soap AND Water Additional Instructions: You will continue with Aspirin and Brilinta therapy. You will remain on Brilinta for at least one year. If anyone asks you to stop this medication, please call the [facility] first at [phone]. You will see Phyllis Physician Truck Rental Service Attendant, with the [facility] on 05/04/2018 at 1:00 PM. Cardiac rehab may contact you prior to your appointment, we will assess starting at your office visit. Allergies/Adverse Reactions: Allergies bee venom protein (honey bee) Allergy (Verified 04/12/18 15:18) Unknown Medications to take at Discharge Aspirin E.C. [Ecotrin] 81 mg PO DAILY@0800 tab 03/27/18 atorvastatin 80 mg tablet 80 mg PO QHS #90 tab 04/12/18 lisinopril 5 mg tablet 5 mg PO DAILY #90 tab 04/12/18 metoprolol tartrate 25 mg tablet 12.5 mg PO BID #90 tab 04/12/18 ticagrelor 90 mg tablet 90 mg PO BID #180 tab 04/12/18 Primary Care Physician: Patrick Sparrow MD [Primary Care Provider] - Test Results: Test results from this visit will be discussed in further detail at your follow-up appointment, if applicable. Please Follow Up With: Phyllis Escobar When: 05/04/2018 at 1:00 PM Proposed Discharge Date: 04/21/18 Cardiac Rehabilitation Info Cardiac Rehabilitation Program Information: Cardiac Rehabilitation is important for patients like you who are recovering from a heart problem. Cardiac rehabilitation programs are recognized as integral to the continued care of the patient with coronary heart disease. The cardiac rehabilitation program is designed to optimize a patient's physical, psychological, and social functioning. Health home care associate work in cardiac rehabilitation programs and assist you with getting the treatments you need to get stronger and healthier - like exercise, healthy eating habits, and medications. Cardiac rehabilitation has been show to help people with heart problems live longer and have better life enjoyment than people who do not go to cardiac rehabilitation. Please contact the Cardiac Rehabilitation Program at [facility] at in two weeks if you have not heard from them. 04/27/18 0821 <Electronically signed by Calixto VELAZCO> Date Calixto VELAZCO CC: Esa Sparrow MD Signed CBC-COMPLETE BLOOD CNT Collected: 04/21/2018 Status: F Source: [place] NO DIFF 5:20 AM [facility] [place] TYPE CODE TESTS RESULT OUT OF RANGE REFERENCE UNITS LAB L100.1000 4.4-11.0 K/mm3 High WBC 11.3 LAB L100.1200 4.6-6.2 M/mm3 Low RBC 4.42 LAB L100.1300 13.0-16.5 g/dl Normal HGB 13.2 LAB L100.1400 40-54 % Low HCT 38.8 LAB L100.1500 80-94 fL Normal MCV 87.8 LAB L100.1600 27.0-32.0 pg Normal MCH 29.9 LAB L100.1700 32-36 g/gl Normal MCHC 34.0 LAB L100.1810 11.6-14.6 % Normal RDW CV 13.5 LAB L100.1820 35.1-43.9 fl Normal RDW SD 43.9 LAB L100.1900 150-450 K/mm3 Normal PLT 224 LAB L100.2000 6.2-12.0 fl Normal MPV 10.3 Performed By: #### L100.0500 #### [facility] [address] [place], [place], [address] BASIC METABOLIC Collected: 04/21/2018 Status: F Source: [place] PROFILE (BMP) 5:20 AM [facility] [place] TYPE CODE TESTS RESULT OUT OF RANGE REFERENCE UNITS LAB L501.0100 74-106 mg/dL Normal GLU 85 Result Comment: Please note revised GLUCOSE reference range effective 2017. LAB L501.1000 7-18 mg/dL Normal BUN 11 LAB L501.1100 0.70-1.30 mg/dL Normal CREAT,SERUM 0.99 Result Comment: The validity of the calculated GFR AND GFRAA in patients over 70 years has not been determined. Clinical correlation is essential. LAB L501.1110 >60 mL/min Normal EST GFR 84 Result Comment: Non- GFR Calc LAB L501.1115 >60 mL/min Normal EST GFR - AA 102 Result Comment: GFR Calc LAB L501.1255 ml/min Normal Estimated CRCL 87.28 LAB L501.1300 10-20 RATIO Normal BUN/CRE 11.1 LAB L501.2200 8.5-10 mg/dL Normal .1 CA 8.7 LAB L501.5300 136-14 mmol/L Normal 5 NA 141 LAB L501.5600 3.5-5. mmol/L Normal 1 K 3.6 LAB L501.5900 98-107 mmol/L High CL 109 LAB L501.6100 21.0-3 mmol/L Normal 2.0 CO2 22.0 LAB L501.6200 5-15 Normal GAP 10 Performed By: #### L500.2500 #### [facility] [address] [place], [place], [address] ACT ACTIVATED CLOTTING Collected: 04/20/2018 Status: F Source: [place] TIME 12:08 PM [facility] [place] TYPE CODE TESTS RESULT OUT OF RANGE REFERENCE UNITS LAB L9100.0100 74-137 sec High ACTk CLOT 175 TIME Performed By: #### L9100.0100 #### [facility] Point of Care [address] [place] [address] STRESS TEST ECHO W/O Observed: 04/18/2018 Status: F Source: [place] CONTRAST 2:03 PM [facility] REPOSITORY [facility] Cardiovascular Services [address] [place] [address] Stress Test Echo w/o Contrast MR#: [id number] Acct: [id number] Name: MICHEAL DILLON Rep #: [id number] : 1965 52 From: Dustin Singh MD Primary Care: Esa Sparrow MD Status: REG CLI Ordering Dr: Dustin Singh MD Sex: M C Reason For Study: CAD/ASHD Stress Results Protocol: Papi Protocol Maximum Predicted HR: 168 bpm Target HR: 143 bpm % Maximum Predicted HR: 101 % DurationHeart Rate Stage (mm:ss) (bpm) BP Comment BASELINE 72 148/94 STAGE 1 3:00 123 210/90 STAGE 2 2:30 169 230/100INCREASED SOB, NO CHEST PAIN RECOVERY 89 150/82 Stress Duration: 5:30 mm:ss Maximum Stress HR: 169 bpm Baseline Echocardiogram Findings The estimated ejection fraction is 65 %. Stress Echo Wall motion Data Resting WM Intermediate WM Stress WM Resting Wall Motion Wall Motion Stress No regional wall motion Posterior-Basal: Mildly abnormalities noted. hypokinetic. Mid-Lateral : Mildly hypokinetic. EKG Data The baseline ECG displays normal sinus rhythm. The patient exercised according to the regular Papi protocol for a total duration of 5:30. The maximum heart rate attained was 169 beats per minute. This was 100% of maximum predicted heart rate. The patient exercised into stage 2 of the Papi protocol. During stress, there were no ST or T wave changes noted to suggest ischemia. No clinical angina was noted. Interpretation Summary The estimated ejection fraction is 65 %. Posterior-Basal: Mildly hypokinetic Mid-Lateral : Mildly hypokinetic Abnormal, adequate, treadmill echocardiogram. Positive for ischemia by echocardiographic criteria. No anginal symptoms noted. Hypertensive blood pressure response to exercise. Below average exercise capacity for age. Patient developed mild hypokinesis of the posterior lateral yee at peak exercise consistent with left circumflex territory. Rare PVCs noted during exercise. Test terminated due to dyspnea. Final LVEF of 60%. No complications. Ordering Physician: Dustin Singh Referring Physician: Dustin Singh Performed By: Zeenat Soni RDCS 04/18/18 1403 Date Dustin Singh MD CC: Esa Sparrow MD; Dustin Singh MD Date Dictated: 04/17/18 1048 Date Transcribed: 04/18/18 1403 [place] Roller: Signed ECHOCARDIOGRAM COMPLETE Observed: 04/17/2018 Status: F Source: [place] 4:08 PM [facility] [place] [facility] Cardiovascular Services [address] [place] [address] Echo Complete 04/16/18 1256 MR#: [id number] Acct: [id number] Name: MICHEAL DILLON Rep #: [id number] : 1965 52 From: Dustin Singh MD Attending Dr: Dustin Singh MD Status: REG CLI Ordering Dr: Dustin Singh MD Date: 04/16/18 Location: [facility] Sex: M C Admitted: Reason For Study: CAD/ASHD Procedure This was a 2D Doppler, Color Flow transthoracic echocardiogram. Exam performed in department. Left Ventricle Normal size and thickness. Apical false tendon noted. The estimated ejection fraction is 65 %. Normal diastology for age. No regional wall motion abnormalities noted. Right Ventricle Normal size and thickness. Normal systolic function. Atria Normal left atrium. Normal right atrium. Normal atrial septum. Mitral Valve The mitral valve is structurally normal. No prolapse or stenosis seen. Trivial mitral valve insufficiency. Tricuspid Valve Normal tricuspid valve. Trivial tricuspid valve insufficiency. Right ventricular systolic pressure estimated to be 26 mmHg. Aortic Valve Normal aortic valve. Trisinus/trileaflet aortic valve. Pulmonic Valve Normal pulmonic valve. Trivial pulmonic valve insufficiency. Great Vessels Normal aortic root. Normal arch. Normal inferior vena cava. Inferior vena cava collapse with sniff. Pericardium/Pleural No pericardial effusion. MMode/2D Measurements AND Calculations LVIDd: 4.9 cm IVSd: 1.4 cm Ao root diam: 4.3 cm LVIDs: 3.5 cm LVPWd: 1.2 cm LA dimension: 3.4 cm RVDd: 3.4 cm FS: 28.0 % LAV(MOD-bp): 52.8 ml LVAd ap4: 32.5 cm2 SV(MOD-sp4): 64.1 ml LAV(MOD-bp) Indexed: 25.6 ml/m2 EDV(MOD-sp4): 105.4 ml LAV(MOD-sp2): 54.6 ml EDV(sp4-el): 110.9 ml LAV(MOD-sp4): 48.5 ml LVAs ap4: 18.6 cm2 ESV(MOD-sp4): 41.4 ml ESV(sp4-el): 43.6 ml EF(MOD-sp4): 60.8 % EF(sp4-el): 60.7 % SV(sp4-el): 67.3 ml LA A4 area: 18.5 cm2 RA A4 area: 15.4 cm2 Time Measurements MV dec time: 0.19 sec Doppler Measurements AND Calculations MV E max hoang: 87.7 cm/sec Lat Peak E' Hoang: 5.4 cm/sec Med Peak E' Hoang: 6.3 cm/sec MV A max hoang: 73.7 cm/sec E/E' lat: 16.4 E/E' med: 13.9 MV E/A: 1.2 MV V2 max: 100.8 cm/sec MV P1/2t max hoang: 100.8 cm/sec Ao V2 max: 114.0 cm/sec MV max P.1 mmHg MV P1/2t: 63.5 msec Ao max P.2 mmHg MV V2 mean: 50.0 cm/sec Ao V2 mean: 74.1 cm/sec MV mean P.2 mmHg MV dec slope: 465.2 cm/sec2 Ao mean P.5 mmHg MV V2 VTI: 29.0 cm MVA(P1/2t): 3.5 cm2 Ao V2 VTI: 20.3 cm LV V1 max: 108.0 cm/sec MR max hoang: 713.0 cm/sec PA V2 max: 82.8 cm/sec LV V1 max P.7 mmHg MR max P.4 mmHg LV V1 mean P.3 mmHg LV V1 mean: 69.9 cm/sec LV V1 VTI: 22.6 cm TR max hoang: 228.2 cm/sec TR max P.8 mmHg Interpretation Summary The estimated ejection fraction is 65 %. Normal diastology for age. Trivial tricuspid valve insufficiency. Right ventricular systolic pressure estimated to be 26 mmHg. Compared to echo report dated 03/27/2018, LV function has normalized and anterior hypokinesis has resolved. Ordering Physician: Dustin Singh Referring Physician: Esa Sparrow MD Performed By: John Feliciano RCS 04/17/18 1607 Date Dustin Singh MD CC: Esa Sparrow MD; Dustin Singh MD Date Dictated: 04/16/18 1256 Date Transcribed: 04/17/18 1607 [place]: Signed CARDIOLOGY VISIT Observed: 04/12/2018 Status: F Source: [place] REPORT 3:38 PM [facility] [place] [facility] [address] [place] [address] OFFICE VISIT Date of Service: 04/12/18 MR#: [id number] Acct: [id number] Name: MICHEAL DILLON Rep #: [id number] : 1965 Provider: Dustin Singh MD Age/Sex: 52/M Location[place] [facility] [place] Status: Signed HPI HPI Chief Complaint: Routine f/u Details: MICHEAL DILLON, is a 52 M, nondiabetic, with hypertension, who presents to the office today for evaluation of acute anterior wall myocardial infarction which took place on 03/24/18. At that time the patient developed substernal chest pain which he thought was reflux disease. When he arrived he had ST segment elevation but no significant troponin release. He was emergently brought to the [facility] where he was found to have a occluded LAD. He underwent successful angioplasty and stenting receiving a 2.5X 24 Promus Synergy stent, postdilated to 3.0 mm. He also was found to have is possibly significant left circumflex lesion and nonobstructive coronary disease in his RCA. Patient's care was supplemented with an injury to balloon pump for 48 hours patient is awaiting stress testing to evaluate his left circumflex prior to starting cardiac rehab. He has successfully quit smoking, but finding it very difficult Since discharge the patient has been doing relatively well. He denies any chest pain, angina, shortness of breath or dyspnea on exertion. He is taking and tolerating his medicines well. Interoffice today's blood pressure is 120/70, pulse is 74 and regular. His physical exam is as below. His lipids as of 03/25/18 showed an LDL of 90 and HDL 39. Intake Vital Signs04/12/18 Height 5 ft 8.5 in 04/12/18 Weight: 209 lb 04/12/18 Body Mass Index (BMI) 31.3 Intake Visit Reasons: 2 WK S/P STEMI Heavy Mobile Equipment Operator Required: No Is patient in pain?: No Allergies bee venom protein (honey bee) Allergy (Verified 04/12/18 15:18) Unknown Medications Aspirin E.C. 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 Social History Smoking Status: Current every day smoker alcohol intake: never ROS Const Const: Positive for other (Feels well. Had VT and stent placement 03/24/18); negative for fatigue, weakness, body ache, fever(s), headache(s), chills, frequent falls, night sweats, daytime sleepiness, difficulty sleeping, excessive sweating, weight gain, weight loss, increased appetite, poor appetite or anorexia Eyes Eyes: Negative for blind spots, loss of peripheral vision, transient loss of vision, blurry vision, change in vision, double vision, floaters, tunnel vision or other ENT ENT: Negative for headache(s), dizziness, hearing loss, tinnitus, Nosebleed/epistaxis, balance problems, post nasal drip, lip swelling, tongue swelling, bleeding gums, hoarseness, neck pain, dry mouth or other Cardio Chest Pain: No Palpitations: No Edema: None Muscle aches with walking: None Resp Respiratory: Negative for SOB with activity, SOB at rest, SOB orthopnea\SOB lying down, Cough, Coughing up blood/hemoptysis, chest congestion, pain on inspiration, snoring, stridor, wheezing, crackles, paroxysmal nocturnal dyspnea or other GI GI: Negative nausea, vomiting, heartburn, constipation, belching, bloating, cramping, vomiting blood/hematemesis, bright, red blood in stools, black,tarry stools, loose stools, Difficulty Swallowing or other : Negative for hematuria, frequent nighttime urination/ nocturia, erectile dysfunction or abnormal vaginal bleeding Musc Musc: Negative for balance problems, muscle aches/ myalgia, muscle weakness or joint pain Skin Skin: Negative redness, non-healing lesions, rash, unusual bruising, skin ulcer, wounds, jaundice or other Neuro Neuro: Negative for weakness, headache(s), frequent falls, blurry vision, double vision, dizziness, lightheadedness, near syncope, syncope, orthostatic symptoms, confusion, memory loss, restless legs, vertigo, seizures, lack of coordination or other Fernando Hematologic/Lymphatic: Negative for easy bleeding, easy bruising, enlarged lymph nodes or other Endo Endo: Negative for fatigue, excessive sweating, cold intolerance, heat intolerance, flushing, increased thirst/drinking, increased hunger, hair loss, hair growth or other Psych Psych: Negative for anxiety, depression, thoughts of harming anyone, thoughts of harming yourself, visual hallucinations, panic attacks or audible hallucinations Allergy Allergy/Immunology: Negative for lip swelling, Negative for tongue swelling, Negative for rash, Negative for throat swelling, Negative for hives Cardiology Exam Const Appearance: cooperative, healthy appearing and no acute distress Nutritional Appearance: well nourished Orientation: alert, oriented x3 and oriented to person Head Head: normal to inspection, atraumatic and normocephalic Nose: external nose normal Face and Sinus: face symmetric Mouth: oral mucosae normal Eyes General: appearance normal, both eyes and all related structures Eyelids: eyelids normal Conjunctivae: conjunctivae normal Pupils: PERRL and normal by confrontation EOM: EOM intact bilaterally Neck Neck: normal visual inspection and full ROM Carotids: normal carotid upstroke Chest Chest inspection: normal inspection of the chest Auscultation: Bilateral: Clear to Auscultation Cardio Palpation: normal PMI Rate: regular rate Rhythm: regular rhythm Heart sounds: S1 normal and S2 normal GI GI: normal to inspection, no hepatosplenomegaly and bowel sounds present Neuro General: alert, oriented x3, awake, CN's II-XI intact bilaterally and moves all extremities Skin Skin: no rashes or lesions noted Extremities Pulses: Normal: Right Femoral Pulse, Left Femoral Pulse, Right Dorsalis Pedis Pulse, Left Dorsalis Pedis Pulse, Right Posterior Tibial Pulse, Left Posterior Tibial Pulse, Right Radial Pulse, Left Radial Pulse Lower Extremity Edema: None: Bilateral Psych Psychological: normal affect Assessment AND Plan 1. Atherosclerotic heart disease of algaaciq coronary artery without angina pectoris I25.10 STEMI,YAMILA of proximal LAD (2.5 X 24 [employer]) per Dr. Singh @ [facility] Plan 1. Coronary artery disease: No exertional no anginal symptoms at this time. When we did his heart catheterization we discovered he may have a significant lesion in his left circumflex artery which was left for further evaluation with stress testing prior to return to work. I recommended he undergo a stress echocardiogram next week, to determine if he has any lateral ischemia. If this is grossly abnormal for ischemia, he will need antroplasty and stenting of his left circumflex. If however his stress test is negative, he may return to work as well as initiate cardiac rehab and off campus site as he is an employee here at [facility] [employer]. Would recommend [employer]. In the meantime he will continue his baby aspirin, lisinopril, Lopressor and Brilinta. Orders Orders: 2. Hyperlipidemia E78.5 Plan 2. Hyperlipidemia: We will repeat his lipid profile in 3 weeks time. Continue Lipitor. His LDL should be less than 7 Orders Orders: 3. Nicotine dependence F17.200 Plan . 3. Nicotine dependence: The patient states that he has not smoked since his event but is finding it very difficult to stay off of cigarettes. I recommended that he initiate cardiac rehab assuming his stress test shows no lateral ischemia. 4. Return office in 6-months. This note was generated using a voice recognition system and there may be incorrect words, spelling or punctuation that were not noted when reviewing the office note prior to saving. Plan Detail Other Medications Refilled: Discontinued: acetaminophen Discontinued Reason: Pt no 650 mg (2 x 325 mg) PO Q6H PRN PRN 0RF Mild P longer taking ain (0-210) Follow Up +6M (Francisco) Coding Level of Care Code Off vis,est,level 3 Diagnoses Atherosclerotic heart disease of algaaciq coronary artery without angina pectoris I25.10 Hyperlipidemia E78.5 Nicotine dependence F17.200 Nicotine product type: cigarettes Coding Level of Care Code Off vis,est,level 3 Diagnoses Atherosclerotic heart disease of algaaciq coronary artery without angina pectoris I25.10 Hyperlipidemia E78.5 Nicotine dependence F17.200 Nicotine product type: cigarettes 04/12/18 1538 <Electronically signed by Dustin Singh MD> Date Dustin Singh MD Cosigner Signature: Date (if applicable) CC: Esa Sparrow MD 12 LEAD ELECTROCARDIOGRAM Observed: 03/30/2018 Status: F Source: [place] 2:10 PM [facility] REPOSITORY [facility] Cardiovascular Services [address] [place] [address] 12 Lead EKG 03/27/18 0437 MR#: [id number] Acct: [id number] Name: MICHEAL DILLON Rep #: [id number] : 1965 52 From: Jac Schumacher MD Attending Dr: Ronald Palacios DO Status: DIS IN Ordering Dr: Dustin Singh MD Date: 03/27/18 Location: ICU Sex: M C Admitted: 03/24/18 Test Reason : AM EKG Blood Pressure : / mmHG Vent. Rate : 076 BPM Atrial Rate : 076 BPM P-R Int : 168 ms QRS Dur : 098 ms QT Int : 402 ms P-R-T Axes : 047 003 107 degrees QTc Int : 452 ms Normal sinus rhythm Septal infarct , age undetermined T wave abnormality, consider anterolateral ischemia Abnormal ECG When compared with ECG of 26-MAR-2018 05:22, MANUAL COMPARISON REQUIRED, DATA IS UNCONFIRMED Confirmed by JAC SCHUMACHER MD ([id number]), editorial intern BRUCE ARMSTRONG ([id number]) on 03/30/2018 2:10:30 PM Referred By: Zayra Glaser Confirmed By:JAC SCHUMACHER MD 03/30/18 1410 Date Jac Schumacher MD CC: Mildred Glaser; Esa Sparrow MD; Dustin Singh MD; Ronald Palacios DO Signed 12 LEAD ELECTROCARDIOGRAM Observed: 03/30/2018 Status: F Source: [place] 9:25 AM [facility] Cardiovascular Services [address] [place] [address] 12 Lead EKG 03/26/18 0522 MR#: [id number] Acct: [id number] Name: MICHEAL DILLON Rep #: [id number] : 1965 52 From: Jac Schumacher MD Attending Dr: Ronald Palacios DO Status: DIS IN Ordering Dr: Dustin Singh MD Date: 03/26/18 Location: ICU Sex: M C Admitted: 03/24/18 Test Reason : AM EKG Blood Pressure : / mmHG Vent. Rate : 066 BPM Atrial Rate : 066 BPM P-R Int : 164 ms QRS Dur : 092 ms QT Int : 470 ms P-R-T Axes : 051 009 115 degrees QTc Int : 492 ms Normal sinus rhythm ST AND T wave abnormality, consider anterolateral ischemia Prolonged QT Abnormal ECG When compared with ECG of 25-MAR-2018 20:01, MANUAL COMPARISON REQUIRED, DATA IS UNCONFIRMED Confirmed by ENDY BATISTA, JAC ([id number]), editorial intern BRUCE ARMSTRONG ([id number]) on 03/27/2018 4:11:28 PM Referred By: Zayra Glaser Confirmed By:JAC SCHUMACHER MD 03/27/18 1611 Date Jac Schumacher MD CC: Mildred Glaser; Esa Sparrow MD; Dustin Singh MD; Ronald Palacios DO Signed 12 LEAD ELECTROCARDIOGRAM Observed: 03/30/2018 Status: F Source: [place] 9:25 AM [facility] Cardiovascular Services [address] [place] [address] 12 Lead EKG 03/25/182000 MR#: [id number] Acct: [id number] Name: MICHEAL DILLON Rep #: [id number] : 1965 52 From: Jac Schumacher MD Attending Dr: Ronald Palacios DO Status: DIS IN Ordering Dr: Dustin Singh MD Date: 03/25/18 Location: ICU Sex: M C Admitted: 03/24/18 Test Reason : CHEST PAIN Blood Pressure : / mmHG Vent. Rate : 070 BPM Atrial Rate : 070 BPM P-R Int : 168 ms QRS Dur : 112 ms QT Int : 438 ms P-R-T Axes : 049 018 126 degrees QTc Int : 473 ms Normal sinus rhythm ST AND T wave abnormality, consider anterolateral ischemia Prolonged QT Abnormal ECG Confirmed by JAC SCHUMACHER MD ([id number]), editorial intern BRUCE ARMSTRONG ([id number]) on 03/27/2018 4:12:49 PM Referred By: Zayra Glaser Confirmed By:JAC SCHUMACHER MD 03/27/18 1612 Date Jac Schumacher MD CC: Mildred Glaser; Esa Sparrow MD; Dustin Singh MD; Ronald Palacios DO Signed 12 LEAD ELECTROCARDIOGRAM Observed: 03/30/2018 Status: F Source: [place] 9:25 AM [facility] [place] [facility] Cardiovascular Services [address] [place] [address] 12 Lead EKG 03/24/18 1134 MR#: [id number] Acct: [id number] Name: MICHEAL DILLON Rep #: [id number] : 1965 52 From: Jac Schumacher MD Attending Dr: Ronald Palacios DO Status: DIS IN Ordering Dr: Dustin Singh MD Date: 03/24/18 Location: ICU Sex: M C Admitted: 03/24/18 Test Reason : S Blood Pressure : / mmHG Vent. Rate : 084 BPM Atrial Rate : 084 BPM P-R Int : 184 ms QRS Dur : 092 ms QT Int : 350 ms P-R-T Axes : 054 -15 043 degrees QTc Int : 413 ms Normal sinus rhythm with sinus arrhythmia Normal ECG When compared with ECG of 24-MAR-2018 09:16, MANUAL COMPARISON REQUIRED, DATA IS UNCONFIRMED Confirmed by JAC SCHUMACHER MD ([id number]), editorial intern BRUCE ARMSTRONG ([id number]) on 03/27/2018 4:13:18 PM Referred By: Zayra Glaser Confirmed By:JAC SCHUMACHER MD 03/27/18 1613 Date Jac Schumacher MD CC: Mildred Glaser; Esa Sparrow MD; Dustin Singh MD; Ronald Palacios DO Signed 12 LEAD ELECTROCARDIOGRAM Observed: 03/30/2018 Status: F Source: [place] 9:25 AM [facility] [place] [facility] Cardiovascular Services [address] [place] [address] 12 Lead EKG 03/25/18 0422 MR#: [id number] Acct: [id number] Name: MICHEAL DILLON Rep #: [id number] : 1965 52 From: Jac Schumacher MD Attending Dr: Ronald Palacios DO Status: DIS IN Ordering Dr: Dustin Singh MD Date: 03/25/18 Location: ICU Sex: M C Admitted: 03/24/18 Test Reason : AM EKG Blood Pressure : / mmHG Vent. Rate : 066 BPM Atrial Rate : 066 BPM P-R Int : 184 ms QRS Dur : 108 ms QT Int : 436 ms P-R-T Axes : 062 029 106 degrees QTc Int : 457 ms Normal sinus rhythm T wave abnormality, consider anterolateral ischemia Abnormal ECG When compared with ECG of 24-MAR-2018 11:34, MANUAL COMPARISON REQUIRED, DATA IS UNCONFIRMED Confirmed by ENDY BATISTA, JAC ([id number]), editorial intern BRUCE ARMSTRONG ([id number]) on 03/27/2018 4:13:32 PM Referred By: Zayra Glaser Confirmed By:JAC SCHUMACHER MD 03/27/18 1613 Date Jac Schumacher MD CC: Mildred Glaser; Esa Sparrow MD; Dustin Singh MD; Ronald Palacios DO Signed 12 LEAD ELECTROCARDIOGRAM Observed: 03/30/2018 Status: F Source: [place] 9:22 AM [facility] [place] [facility] Cardiovascular Services [address] [address] 12 Lead EKG 03/24/18 0916 MR#: [id number] Acct: [id number] Name: MICHEAL DILLON Rep #: [id number] : 1965 52 From: Jac Schumacher MD Attending Dr: Ronald Palacios DO Status: DIS IN Ordering Dr: Lorenzo Arreola MD Date: 03/24/18 Location: ICU Sex: M C Admitted: 03/24/18 Test Reason : REPEAT CP Blood Pressure : / mmHG Vent. Rate : 131 BPM Atrial Rate : 131 BPM P-R Int : 140 ms QRS Dur : 086 ms QT Int : 308 ms P-R-T Axes : 050 -09 -24 degrees QTc Int : 454 ms Sinus tachycardia Anteroseptal infarct , possibly acute ACUTE VT / STEMI Abnormal ECG Confirmed by JAC SCHUMACHER MD ([id number]), editorial intern BRUCE ARMSTRONG ([id number]) on 03/26/2018 1:51:46 PM Referred By: Zayra Glaser Confirmed By:JAC SCHUMACHER MD 03/26/18 1351 Date Jac Schumacher MD CC: Mildred Glaser; Esa Sparrow MD; Ronald Palacios DO; Lorenzo Arreola MD Signed 12 LEAD ELECTROCARDIOGRAM Observed: 03/30/2018 Status: F Source: [place] 9:20 AM [facility] [place] [facility] Cardiovascular Services [address] [place] [address] 12 Lead EKG 03/24/18 0910 MR#: [id number] Acct: [id number] Name: MICHEAL DILLON Rep #: [id number] : 1965 52 From: Jac Schumacher MD Attending Dr: Ronald Palacios DO Status: DIS IN Ordering Dr: Lorenzo Arreola MD Date: 03/24/18 Location: ICU Sex: M C Admitted: 03/24/18 Test Reason : CP Blood Pressure : / mmHG Vent. Rate : 102 BPM Atrial Rate : 102 BPM P-R Int : 168 ms QRS Dur : 084 ms QT Int : 320 ms P-R-T Axes : 052 -45 -14 degrees QTc Int : 417 ms Sinus tachycardia Left axis deviation Pulmonary disease pattern Anterior Septal infarct Acute Marked ST abnormality, possible inferior subendocardial injury Abnormal ECG Confirmed by JAC SCHUMACHER MD ([id number]), editorial intern BRUCE ARMSTRONG ([id number]) on 03/26/2018 9:32:14 AM Referred By: Zayra Glaser Confirmed By:JAC SCHUMACHER MD 03/26/18 0932 Date Jac Schumacher MD CC: Mildred Glaser; Esa Sparrow MD; Ronald Palacios DO; Lorenzo Arreola MD Signed DISCHARGE SUMMARY Observed: 03/29/2018 Status: F Source: [place] 3:14 PM [facility] [place] [facility] Medical Records Department [address] [place] [address] Discharge Summary 03/29/18 1505 MR#: [id number] Acct: [id number] Name: MICHEAL DILLON Rep #: [id number] : 1965 52 From: Ronald Palacios DO PCP: Esa Sparrow MD Status: DIS IN Y Location: ICU ICU-1 Discharge Date and Diagnosis Date of Admission: 03/24/18 Date of Discharge: 03/27/18 - Primary Discharge Diagnosis #1 type I acute myocardial infarction with ST elevation secondary to occlusion of the proximal LAD #2 coronary artery disease-occlusive #3 hyperlipidemia #4 hypertension #5 nonsustained ventricular tachycardia #6 acute blood loss anemia has an expected consequence of acute myocardial infarction with intervention - Secondary Discharge Diagnosis Chronic Problems (Last Updated 03/24/18 @ 08:57 by Tegan Asher) Hypertension (Chronic) Obesity (BMI 30.0-34.9) (Chronic) Nicotine dependence (Chronic) Cystic acne (Chronic) Hospital Course and Treatment Operations: None Procedures: 2-D Echocardiogram, Cardiac catheterization - With drug-eluting stent placement, - - Placement of intra-aortic balloon pump Summary of Care Provided: The patient is a 52 year old M who was seen in the emergency room at [facility] with a chief complaint of chest pain, workup in the emergency room showed ST elevations and V1 with reciprocal depressions in 2 3 and aVF, patient was felt to have had a STEMI, the STEMI team was activated and Dr. Singh took the patient for cardiac catheterization where a drug-eluting stent was placed in the LAD after patient underwent a successful PTCA. Patient was admitted to the ICU and subsequently had insertion of an intra-aortic balloon pump. Medications were adjusted by cardiology, there is noted to be a slight drop in the patient's hemoglobin during his hospitalization. On 03/27/18, patient was seen and examined: On examination he appeared in good health and spirits. Vital signs as documented. Skin warm and dry and without overt rashes. Neck without JVD. Lungs clear. Heart exam notable for regular rhythm, normal sounds and absence of murmurs, rubs or gallops. Abdomen unremarkable and without evidence of organomegaly, masses, or abdominal aortic enlargement. Extremities nonedematous. Neuro: Cranial nerves II through XII are grossly intact, no focal motor deficits were noted. Psych: Patient was alert and oriented x3, he did not appear depressed or anxious. On 03/27/18, patient was seen and examined and felt to be in stable condition for discharge home - Physical Exam Vital Signs Temp Pulse Resp BP Pulse Ox 98.3 F 77 20 H 125/76 H 94 03/27/18 16:00 03/27/18 16:00 03/27/18 16:00 03/27/18 16:00 03/27/18 16:00 Oxygen Flow Rate (L/min) 2 Oxygen Delivery Method Room Air Weight: 98.6 kg Body Mass Index (BMI) 29.2 Intake and Output for Last 24 Hours Intake Total 900 / 900 Output Total 800 / 800 Balance 100 / 100 Discharge Activity: Return to Normal Activity Weight Bearing Status: Full weight bearing Home Medications: Medications to take at Discharge Acetaminophen [Tylenol Tablet] 650 mg PO Q6H PRN PRN tablet 03/27/18 Aspirin E.C. [Ecotrin] 81 mg PO DAILY@0800 tablet 03/27/18 Atorvastatin Calcium [Lipitor] 80 mg PO QHS #30 tablet 03/27/18 Lisinopril [Zestril] 5 mg PO DAILY #30 tablet 03/27/18 Metoprolol Tartrate [Lopressor (beta iman)] 12.5 mg PO BID #30 tablet 03/27/18 Ticagrelor [Brilinta] 90 mg PO BID #60 tablet 03/27/18 Following Prescrptions Were Given to Patient: Atorvastatin Calcium [Lipitor] 80 mg PO QHS #30 tablet Lisinopril [Zestril] 5 mg PO DAILY #30 tablet Metoprolol Tartrate [Lopressor (beta iman)] 12.5 mg PO BID #30 tablet Ticagrelor [Brilinta] 90 mg PO BID #60 tablet Primary Care Physician: Patrick Sparrow MD [Primary Care Provider] - Please follow up with your Primary Care Physician in: in 3 weeks Please Follow Up With: Dustin Singh MD When: as directed Disposition: Home Minutes spent on discharge:: 32 Patient Condition:: Stable Medical Necessity - Tobacco Use Smoking Status: Current every day smoker Tobacco Use: Cigarettes Meaningful Use Info Meaningful Use Diagnoses (Choose all that apply): AMI - AMI Aspirin given w/in 24hrs of arrival?: Yes ASA at discharge?: Yes Statins at discharge?: Yes Petros/ARB at discharge?: Yes Beta Iman at discharge?: Yes Done w/ Acute VT measure.: Yes Code Visit Inpatient E AND M: [id number] Disch Hosp 03/29/18 1514 <Electronically signed by Ronald Palacios DO> Date Ronald Palacios DO Cosigner Signature (if applicable): Date CC: Esa Sparrow MD; Ronald Palacios DO Signed ECHO, COMPLETE W/ Observed: 03/28/2018 Status: F Source: [place] 8:51 AM [facility] [place] Cardiovascular Services [address] [place] [address] Echo Complete W/ Contrast 03/27/18 0841 MR#: [id number] Acct: [id number] Name: TONIMONICAMICHEAL A Rep #: [id number] : 1965 52 From: Dustin Singh MD Attending Dr: Ronald Palacios DO Status: DIS IN Ordering Dr: Dustin Singh MD Date: 03/27/18 Location: ICU Sex: M C Admitted: 03/24/18 Reason For Study: CAD/ASHD Procedure This was a 2D Doppler, Color Flow transthoracic echocardiogram. Contrast injection was performed. Exam performed portable in ICU/CCU. Left Ventricle Normal size and thickness. The estimated ejection fraction is 55 %. Stage 1 diastolic dysfunction. There are regional wall motion abnormalities as specified. Mid-Anterior : Hypokinetic. Mid- anteroseptal : Mildly hypokinetic. Right Ventricle Normal size and thickness. Normal systolic function. Atria Normal left atrium. Normal right atrium. Normal atrial septum. Mitral Valve The mitral valve is structurally normal. No prolapse or stenosis seen. Tricuspid Valve Normal tricuspid valve. Trivial tricuspid valve insufficiency. Right ventricular systolic pressure estimated to be 28 mmHg. Aortic Valve Normal aortic valve. Trisinus/trileaflet aortic valve. Pulmonic Valve Normal pulmonic valve. Trivial eccentric pulmonic valve insufficiency. Great Vessels Normal aortic root. Normal arch. Normal inferior vena cava. Inferior vena cava collapse with sniff. Pericardium/Pleural No pericardial effusion. Medication Diluted definity 4ml given slow IV push to enhance endocardial definition. MMode/2D Measurements AND Calculations LVIDd: 5.0 cm IVSd: 1.3 cm Ao root diam: 4.2 cm LVIDs: 3.5 cm LVPWd: 1.3 cm LA dimension: 3.4 cm RVDd: 3.3 cm FS: 29.8 % LAV(MOD-bp): 47.2 ml LA A4 area: 15.5 cm2 RA A4 area: 14.3 cm2 LAV(MOD-bp) Indexed: 22.4 ml/m2 LAV(MOD-sp2): 51.8 ml LAV(MOD-sp4): 40.2 ml Time Measurements MV dec time: 0.21 sec Doppler Measurements AND Calculations MV E max hoang: 61.6 cm/sec Med Peak E' Hoang: 7.5 cm/sec MV V2 max: 112.7 cm/sec MV A max hoang: 93.8 cm/sec E/E' med: 8.2 MV max P.1 mmHg MV E/A: 0.66 MV V2 mean: 58.8 cm/sec MV mean P.6 mmHg MV V2 VTI: 30.8 cm LV V1 max: 139.0 cm/sec PA V2 max: 94.4 cm/sec TR max hoang: 237.3 cm/sec LV V1 max P.7 mmHg TR max P.5 mmHg LV V1 mean P.9 mmHg LV V1 mean: 90.4 cm/sec LV V1 VTI: 26.1 cm Interpretation Summary The estimated ejection fraction is 55 %. Mid-Anterior : Hypokinetic Mid-anteroseptal : Mildly hypokinetic Stage 1 diastolic dysfunction. Trivial tricuspid valve insufficiency. Right ventricular systolic pressure estimated to be 28 mmHg. There is no comparison study available. The study was technically difficult. Contrast injection was performed. Ordering Physician: Dustin Singh MD Referring Physician: Esa Sparrow MD Performed By: John Feliciano RCS 03/28/18 0850 Date Dustin Singh MD CC: Mildred Glaser; Esa Sparrow MD; Dustin Singh MD; Ronald Palacios DO Date Dictated: 03/27/18 0841 Date Transcribed: 03/28/18 0850 [place]: Signed DISCHARGE INSTRUCTION Observed: 03/27/2018 Status: F Source: [place] 4:58 PM [facility] [place] Medical Records Department [address] [place] [address] Instructions for Home/Discharge Instructions 03/27/18 1656 MR#: [id number] Acct: [id number] Name: MICHEAL DILLON Rep #: [id number] : 1965 52 From: Ronald Palacios DO PCP: Esa Sparrow MD Status: ADM IN - Discharge Diagnoses Current Active Problems: Current Active and Chronic Problems (Last Updated 03/24/18 @ 08:57 by Tegan Asher) ST elevation VT (STEMI) (Acute) Hypertension (Chronic) Obesity (BMI 30.0-34.9) (Chronic) Nicotine dependence (Chronic) Cystic acne (Chronic) You will use the following diet at home:: No restrictions Your food should be the consistency of: Regular Your liquids should be the consistency of: Regular/Thin Discharge Activity: Return to Normal Activity Weight Bearing Status: Full weight bearing Allergies/Adverse Reactions: Allergies bee venom protein (honey bee) Allergy (Verified 03/24/18 09:10) Unknown Medications to take at Discharge Acetaminophen [Tylenol Tablet] 650 mg PO Q6H PRN PRN tablet 03/27/18 Aspirin E.C. [Ecotrin] 81 mg PO DAILY@0800 tablet 03/27/18 Atorvastatin Calcium [Lipitor] 80 mg PO QHS #30 tablet 03/27/18 Lisinopril [Zestril] 5 mg PO DAILY #30 tablet 03/27/18 Metoprolol Tartrate [Lopressor (beta iman)] 12.5 mg PO BID #30 tablet 03/27/18 Ticagrelor [Brilinta] 90 mg PO BID #60 tablet 03/27/18 The following prescriptions were given: Atorvastatin Calcium [Lipitor] 80 mg PO QHS #30 tablet Lisinopril [Zestril] 5 mg PO DAILY #30 tablet Metoprolol Tartrate [Lopressor (beta iman)] 12.5 mg PO BID #30 tablet Ticagrelor [Brilinta] 90 mg PO BID #60 tablet Primary Care Physician: Patrick Sparrow MD [Primary Care Provider] - Please follow up with your Primary Care Physician in: in 3 weeks Test Results: Test results from this visit will be discussed in further detail at your follow-up appointment, if applicable. Please Follow Up With: Dustin Singh MD When: as directed 03/27/18 4532 <Electronically signed by Ronald Palacios DO> Date Ronald Palacios DO CC: Esa Sparrow MD; Jac Schumacher MD ACT ACTIVATED CLOTTING Collected: 03/26/2018 Status: F Source: [facility] TIME 7:17 AM [facility] [place] TYPE CODE TESTS RESULT OUT OF RANGE REFERENCE UNITS LAB L9100.0100 74-137 sec Normal ACTk CLOT 131 TIME Performed By: #### L9100.0100 #### [facility] Point of Care [address] [place], [place] [address] CBC-COMPLETE BLOOD CNT Collected: 03/26/2018 Status: F Source: [facility] NO DIFF 3:05 AM [facility] [place] TYPE CODE TESTS RESULT OUT OF RANGE REFERENCE UNITS LAB L100.1000 4.4-11.0 K/mm3 High WBC 12.7 LAB L100.1200 4.6-6.2 M/mm3 Low RBC 4.19 LAB L100.1300 13.0-16.5 g/dl Low HGB 12.6 LAB L100.1400 40-54 % Low HCT 37.3 LAB L100.1500 80-94 fL Normal MCV 89.0 LAB L100.1600 27.0-32.0 pg Normal MCH 30.1 LAB L100.1700 32-36 g/gl Normal MCHC 33.8 LAB L100.1810 11.6-14.6 % Normal RDW CV 13.4 LAB L100.1820 35.1-43.9 fl Normal RDW SD 43.7 LAB L100.1900 150-450 K/mm3 Normal PLT 230 LAB L100.2000 6.2-12.0 fl Normal MPV 9.8 Performed By: #### L100.0500 #### [facility] [address] [place], [place], [id number] BASIC METABOLIC Collected: 03/26/2018 Status: F Source: [facility] PROFILE (BMP) 3:05 AM [facility] [place] TYPE CODE TESTS RESULT OUT OF RANGE REFERENCE UNITS LAB L501.0100 74-106 mg/dL Normal GLU 90 Result Comment: Please note revised GLUCOSE reference range effective 2017. LAB L501.1000 7-18 mg/dL Normal BUN 13 LAB L501.1100 0.70-1.30 mg/dL Normal CREAT,SERUM 1.01 Result Comment: The validity of the calculated GFR AND GFRAA in patients over 70 years has not been determined. Clinical correlation is essential. LAB L501.1110 >60 mL/min Normal EST GFR 82 Result Comment: Non- GFR Calc LAB L501.1115 >60 mL/min Normal EST GFR - AA 100 Result Comment: GFR Calc LAB L501.1255 ml/min Normal Estimated CRCL 93.91 LAB L501.1300 10-20 RATIO Normal BUN/CRE 12.9 LAB L501.2200 8.5-10 mg/dL Low .1 CA 8.3 LAB L501.5300 136-14 mmol/L Normal 5 NA 141 LAB L501.5600 3.5-5. mmol/L Normal 1 K 3.8 LAB L501.5900 98-107 mmol/L Normal CL 107 LAB L501.6100 21.0-3 mmol/L Normal 2.0 CO2 23.0 LAB L501.6200 5-15 Normal GAP 11 Performed By: #### L500.2500, L501.5200 #### [facility] [address] [place], [place], [address] MAGNESIUM Collected: 03/26/2018 Status: F Source: [facility] 3:05 AM [facility] [place] TYPE CODE TESTS RESULT OUT OF RANGE REFERENCE UNITS LAB L501.5200 1.6-2.6 mg/dL Normal MG 2.1 Performed By: #### L500.2500, L501.5200 #### [facility] [address] [place], [address] PARTIAL THROMBOPLAST Collected: 03/26/2018 Status: F Source: [place] TIME 3:05 AM [facility] [place] TYPE CODE TESTS RESULT OUT OF REFERENCE UNITS RANGE LAB L300.4310 24.1-36.2 Seconds High PTT 61.8 Performed By: #### L300.4310 #### [facility] [address] [place], [address] CHEST 1 VIEW Observed: 03/26/2018 Status: F Source: [facility] (PORTABLE) 12:00 AM [facility] [place] [facility] Imaging Services [address] [place] [address] Chest 1 View (Portable) MR#: [id number] Acct: [id number] Name: MICHEAL DILLON Rep #: [id number] : 1965 M 52 From: Omi Lemons PCP: Esa Sparrow MD Status: ADM IN Study: Chest 1 View (Portable) Date of Exam: 03/26/18 Exam# [id number] Ordering Dr: Dustin Singh MD STUDY: X-RAY CHEST REASON FOR EXAM: Male, 52 years old. Verify aortic balloon pump catheter placement. TECHNIQUE: AP portable chest. COMPARISON: March 25, 2018. FINDINGS: Aortic balloon pump tip in its expected location. The lungs are clear and expanded. There is no demonstrated pleural abnormality. Normal size heart. Normal mediastinum and edis. Normal visualized pulmonary arteries. Normal visualized aortic arch and descending thoracic aorta. Normal visualized thoracic spine. Normal visualized ribs, clavicles, and shoulders. There is no demonstrated abnormality of the visualized soft tissue structures of the upper abdomen. RAD/Chest 1 View (Portable) IMPRESSION: Normal x-ray examination of the chest. Aortic balloon pump in its expected location. Electronically Signed: Omi Lemons MD at 5:07 EST , Service support , CC: Esa Sparrow MD; Dustin Singh MD [employer]: Signed PARTIAL THROMBOPLAST Collected: 03/25/2018 Status: F Source: [facility] TIME 7:55 PM [facility] [place] TYPE CODE TESTS RESULT OUT OF REFERENCE UNITS RANGE LAB L300.4310 24.1-36.2 Seconds High PTT 45.5 Performed By: #### L300.4310 #### [facility] [address] [place], [address] PARTIAL THROMBOPLAST Collected: 03/25/2018 Status: F Source: [facility] TIME 1:30 PM [facility] [place] TYPE CODE TESTS RESULT OUT OF REFERENCE UNITS RANGE LAB L300.4310 24.1-36.2 Seconds High PTT 41.1 Performed By: #### L300.4310 #### [facility] [address] [place], [address] PARTIAL THROMBOPLAST Collected: 03/25/2018 Status: F Source: [place] TIME 7:00 AM [facility] [place] TYPE CODE TESTS RESULT OUT OF REFERENCE UNITS RANGE LAB L300.4310 24.1-36.2 Seconds High PTT 41.9 Performed By: #### L300.4310 #### [facility] [address] [place], [address] MAGNESIUM Collected: 03/25/2018 Status: F Source: [facility] 7:00 AM [facility] [place] Order Comment: Comments: OK to run on the AM blood draw TYPE CODE TESTS RESULT OUT OF RANGE REFERENCE UNITS LAB L501.5200 1.6-2.6 mg/dL Normal MG 2.2 Performed By: #### L501.5200 #### [facility] [address] [place], [address] CBC-COMPLETE BLOOD CNT Collected: 03/25/2018 Status: F Source: [facility] NO DIFF 4:45 AM [facility] [place] TYPE CODE TESTS RESULT OUT OF RANGE REFERENCE UNITS LAB L100.1000 4.4-11.0 K/mm3 High WBC 12.1 LAB L100.1200 4.6-6.2 M/mm3 Low RBC 4.12 LAB L100.1300 13.0-16.5 g/dl Low HGB 12.7 LAB L100.1400 40-54 % Low HCT 37.5 LAB L100.1500 80-94 fL Normal MCV 91.0 LAB L100.1600 27.0-32.0 pg Normal MCH 30.8 LAB L100.1700 32-36 g/gl Normal MCHC 33.9 LAB L100.1810 11.6-14.6 % Normal RDW CV 13.9 LAB L100.1820 35.1-43.9 fl High RDW SD 45.8 LAB L100.1900 150-450 K/mm3 Normal PLT 252 LAB L100.2000 6.2-12.0 fl Normal MPV 10.3 Performed By: #### L100.0500 #### [facility] [place], [address] COMPREHENSIVE METABOLIC Collected: 03/25/2018 Status: F Source: [facility] 4:45 AM [facility] [place] TYPE CODE TESTS RESULT OUT OF RANGE REFERENCE UNITS LAB L501.0100 74-106 mg/dL Normal GLU 90 Result Comment: Please note revised GLUCOSE reference range effective 2017. LAB L501.1000 7-18 mg/dL Normal BUN 12 LAB L501.1100 0.70-1.30 mg/dL Normal CREAT,SERUM 1.07 Result Comment: The validity of the calculated GFR AND GFRAA in patients over 70 years has not been determined. Clinical correlation is essential. LAB L501.1110 >60 mL/min Normal EST GFR 77 Result Comment: Non- GFR Calc LAB L501.1115 >60 mL/min Normal EST GFR - AA 93 Result Comment: GFR Calc LAB L501.1255 ml/min Normal Estimated CRCL 88.64 LAB L501.1300 10-20 RATIO Normal BUN/CRE 11.2 LAB L501.1500 6.4-8. g/dL Low 2 T PROT 6.2 LAB L501.1800 3.2-5. g/dL Normal 0 ALB 3.2 LAB L501.1950 2.2-4. g/dL Normal 2 GLOB 3.0 LAB L501.2000 0.9-2. RATIO Normal 4 A/G 1.1 LAB L501.2200 8.5-10 mg/dL Low .1 CA 8.2 LAB L501.4100 15-37 U/L High AST 141 LAB L501.4305 45-117 U/L Low ALK P 41 LAB L501.4405 16-61 U/L Normal ALT 34 LAB L501.4600 0.20-1 mg/dL Normal .00 T BILI 0.70 LAB L501.5300 136-14 mmol/L Normal 5 NA 143 LAB L501.5600 3.5-5. mmol/L Normal 1 K 3.7 LAB L501.5900 98-107 mmol/L High CL 109 LAB L501.6100 21.0-3 mmol/L Normal 2.0 CO2 25.0 LAB L501.6200 5-15 Normal GAP 9 Performed By: #### L500.4050, L500.4100 #### [facility] [address] [place], [address] LIPID PROFILE Collected: 03/25/2018 Status: F Source: [place] 4:45 AM [facility] [place] TYPE CODE TESTS RESULT OUT OF RANGE REFERENCE UNITS LAB L501.4900 200 mg/dL Normal CHOL 169 Result Comment: <200 mg/dL Desirable 200-240 mg/dL Borderline >240 mg/dL High Risk LAB L501.5000 mg/dL High TRIG 200 Result Comment: The drugs N-Acetylcysteine and Metamizole may falsely depress this assay. Serum Triglycerides Reference Interval Normal <150 mg/dL Borderline high 150 - 199 mg/dL High 200 - 499 mg/dL Very High > or = 500 mg/dL LAB L501.6400 mg/dL Low HDL 39 Result Comment: The drugs N-Acetylcysteine and Metamizole may falsely depress this assay. Reference Range HDL <40 mg/dL Low HDL Cholesterol HDL >or= 60 mg/dL High HDL Cholesterol LAB L501.6500 0-130 mg/dL Normal LDL 90 LAB L501.6600 5-40 mg/dL Normal VLDL 40 Performed By: #### L500.4050, L500.4100 #### [facility] [address] [place], [address] CHEST 1 VIEW Observed: 03/25/2018 Status: F Source: [place] (PORTABLE) 12:00 AM [facility] [facility] Imaging Services [address] [place] [address] Chest 1 View (Portable) MR#: [id number] Acct: [id number] Name: MICHEAL DILLON Rep #: [id number] : 1965 M 52 From: Ema Hernandez MD PCP: Esa Sparrow MD Status: ADM IN Study: Chest 1 View (Portable) Date of Exam: 03/25/18 Exam# [id number] Ordering Dr: Dustin Singh MD STUDY: X-RAY CHEST REASON FOR EXAM: Male, 52 years old. Documentation of location of aortic balloon placement. TECHNIQUE: Single AP portable view of the chest. COMPARISON: March 24, 2018. FINDINGS: Cardiac monitoring leads are present. Aortic balloon pump is present with the tip at the cephalad most portion of the aortic arch. The lungs are clear and expanded. There is no demonstrated pleural abnormality. There is borderline cardiomegaly. Normal mediastinum and edis. Normal visualized pulmonary arteries. There is atherosclerotic calcification of the aortic arch with tortuosity. There are diffuse degenerative changes of the visualized thoracic spine. There are degenerative changes of both shoulders. There is no demonstrated abnormality of the visualized soft tissue structures of the upper abdomen. RAD/Chest 1 View (Portable) IMPRESSION: 1. No radiographic evidence of acute cardiopulmonary disease. 2. The tip of the aortic balloon pump is at the aortic arch. Electronically Signed: Ema Hernandez MD at 6:06 EST , Service support , CC: Esa Sparrow MD; Dustin Singh MD [place] [place] [employer]: Signed PARTIAL THROMBOPLAST Collected: 03/24/2018 Status: F Source: [facility] TIME 11:30 PM [facility] [place] TYPE CODE TESTS RESULT OUT OF RANGE REFERENCE UNITS LAB L300.4310 24.1-36.2 Seconds Normal PTT 33.9 Performed By: #### L300.4310 #### [facility] [address] [place], [place], [address] TROPONIN-I Collected: 03/24/2018 Status: F Source: [facility] 4:35 PM [facility] [place] Order Comment: 'TROP' Serial specimen #1, #2 or #3: 3 TYPE CODE TESTS RESULT OUT OF RANGE REFERENCE UNITS LAB L501.4010 <0.045 ng/mL High alert 20.400 TROPONIN-I Result Comment: CALLED [facility] ICU WITH CRITICAL CTNI BY [facility] 03-24-18 AT 1712PM READ BACK BY SAME TROPONIN-I EXPECTED VALUES <0.045 Negative 0.045 - 0.590 Consistent with Cardiac Damage > OR = 0.600 Critical Value Not every elevated troponin is indicative of VT. These values should be used with clinical judgement in examining the patient's clinical picture for diagnosis. To establish a diagnosis of VT versus myocardial injury, there must be a demonstrated rise and/or fall in the troponin values, in addition to ischemic symptoms, EKG changes, new regional wall motion abnormality, and/or angiographical evidence. PLEASE NOTE: REFERENCE RANGES EDITED 17 Performed By: #### L501.4010 #### [facility] [address] [place], [place], [address] PARTIAL THROMBOPLAST Collected: 03/24/2018 Status: F Source: [facility] TIME 4:35 PM [facility] [place] [place] TYPE CODE TESTS RESULT OUT OF REFERENCE UNITS RANGE LAB L300.4310 24.1-36.2 Seconds High PTT 52.3 Performed By: #### L300.4310 #### [facility] [address] [place], [place], [address] HISTORY AND PHYSICAL Observed: 03/24/2018 Status: F Source: [facility] EXAM 4:03 PM [facility] [place] [facility] Medical Records Department [address] [place] [address] History and Physical 03/24/18 0957 MR#: [id number] Acct: [id number] Name: MICHEAL DILOLN Rep #: [id number] : 1965 52 From: Zayra Glaser DO PCP: Esa Sparrow MD Status: ADM IN Y Location: ICU ICU07-1 Problem List (1) ST elevation VT (STEMI) Status: Acute (2) Hypertension Status: Chronic Qualifiers: Hypertension type: unspecified Qualified Code(s): I10 - Essential (primary) hypertension (3) Obesity (BMI 30.0-34.9) Status: Chronic (4) Nicotine dependence Status: Chronic Qualifiers: Nicotine product type: cigarettes (5) Cystic acne Status: Chronic History of Present Illness Date of Admission: 03/24/18 Chief Complaint: Midsternal chest pain and epigastric pain The patient is a 52 year old M with a past medical history of hypertension, nicotine dependence and cystic acne who presented to the emergency department at [facility] on 03/24/2018 complaining of substernal chest discomfort associated with burping. He denies radiation of the pain to the neck jaw or arms. He denies diaphoresis and also denies shortness of breath. He denies palpitations. EKG in the emergency room revealed ST segment elevation in the anterolateral leads with T wave inversions and ST depression in the inferior leads. Chest x-ray shows no infiltrates, pulmonary vascular congestion or pleural effusions. He denies any history of coronary artery disease. He does not know his family history because he is adopted. His primary care physician is Dr. Esa Sparrow. The cath team and Dr. Dustin Singh were summoned and the patient was taken to the [facility]. Past Medical History Past Medical History (Chronic Problems): Chronic Problems (Last Updated 03/24/18 @ 08:57 by Tegan Asher) Hypertension (Chronic) Obesity (BMI 30.0-34.9) (Chronic) Nicotine dependence (Chronic) Cystic acne (Chronic) Medical History: Medical History (Last Updated 03/24/18 @ 08:57 by Tegan Asher) HTN (hypertension) I10 Allergies bee venom protein (honey bee) Allergy (Verified 03/24/18 09:10) Unknown Home Medications: Ambulatory Orders Medication Instructions Recorded Amlodipine [Norvasc] 10 mg PO DAILY #30 tab 09/27/16 Hydrochlorothiazide 12.5 mg PO DAILY 03/13/17 Surgical History: - - Multiple cyst removals from the neck, face and right upper extremity Psychiatric History: No pertinent psych hx Lives: Alone, - - He is single and has no children. Smoking Status: Current every day smoker - 1 pack/day Tobacco Use: Cigarettes Alcohol: Occasional Drugs: None - *Family History Maternal History Items: - - The patient was adopted and has no knowledge of his maternal or Paternal family history. Review of Systems Constitutional: Reports: - - he is having increased eructation. Denies: Chills, Fever, Weight Change Eyes: Denies: Blurred vision HEENT: Denies: Head Aches, Sinus Congestion, Sinus Drainage Cardiovascular: Reports: Chest Pain, Chest Tightness. Denies: Edema, Heaviness, Light Headedness, Orthopnea, Palpitations, Syncope Respiratory: Denies: Cough, Shortness of breath at rest, Sputum production Gastrointestinal: Denies: Abdominal Pain, Nausea, Vomiting Genitourinary: Denies: Dysuria Musculoskeletal: Denies: Back Pain, Joint Pain, Joint swelling, Joint Tenderness, Neck Pain Skin: Denies: Rash, Wounds Neurological: Denies: Numbness, Tingling, Focal weakness Psychiatric: Denies: Anxiety, Depression, Homicidal Ideations, Suicidal Ideations Endocrine: Denies: Change in Body Habitus Hematologic/ Lymphatic: Denies: Easy Bruising, Easy Bleeding, Hx of blood clot VTE Information - Inpt Only VTE Present on Admission: No VTE Mechan Device Prophylaxis: SCD's VTE Pharm Prophylaxis ordered?: Yes Patient Problems: Active and Suspected Problems (Last Updated 03/24/18 @ 08:57 by Tegan Asher) ST elevation VT (STEMI) (Acute) - Physical Exam General: Alert, Oriented x3, Cooperative, Well developed, Well nourished, - - Somewhat anxious HEENT: Atraumatic, PERRLA, EOMI, Normocephalic Oral: Dry Mucosa Neck: Supple, No JVD, Negative Carotid Bruits, - - Carotids have brisk upstroke and good pulse volume Lungs: Clear to auscultation, Normal air movement, No rhonchi, No wheeze, No rales Cardiovascular: Regular Rhythm, Normal S1, Normal S2, No murmurs, No Gallop, Tachycardic Abdomen: Bowel Sounds Present, Soft, Non Tender, Non-Distended, Obese Extremities: No clubbing, No cyanosis, No edema, No Calf Tenderness, Peripheral Pulses Normal Skin: No rashes, No breakdown Musculoskeletal: No Muscle Wasting Neurological: Cranial nerves II-XII grossly intact, Neuro grossly intact Psych/Mental Status: Normal Affect, Appropriate Vital Signs Temp Pulse Resp BP Pulse Ox 98.3 F 135 H 18 164/97 H 98 03/24/18 09:11 03/24/18 09:17 03/24/18 09:17 03/24/18 09:17 03/24/18 09:17 Oxygen Flow Rate (L/min) 2 Oxygen Delivery Method Nasal Cannula Weight: 214 lb 6.4 oz Body Mass Index (BMI) 31.6 Laboratory Tests Past 24 Hrs Assessment/Plan All Active Problems (Last Updated 03/24/18 @ 08:57 by Tegan Asher) ST elevation VT (STEMI) (Acute) Chest pain (Acute) Impressions 1. STEMI 2. Hypertension 3. Nicotine dependence 4. Cystic acne Pt was escorted to the pathology laboratory aides teacher by myself and observed until Dr. Singh arrived. There was no ectopy. CP was relieved with 2 mg of MS. He had no SOB and the lungs were CTA. Admit to ICU following the procedure and further orders will be written at that time after the results of the cath are known. Code Visit Inpatient E AND M: 67007 Init Hosp L3 03/24/18 1603 <Electronically signed by Zayra Glaser DO> Date Zayra Glaser DO Cosigneduard Signature: Date (if applicable) CC: Mildred Glaser; Esa Sparrow MD Signed URGENT CARE VISIT Observed: 03/24/2018 Status: F Source: [facility] REPORT 2:38 PM [facility] [address] [place] [address] OFFICE VISIT Date of Service: 03/24/18 MR#: [id number] Acct: [id number] Name: MICHEAL DILLON Rep #: [id number] : 1965 Provider: VIKASH Jang Age/Sex: 52/M Location: [facility] Status: Signed Intake Vital Signs03/24/18 Body Mass Index (BMI) 29.0 03/24/18 Height 5 ft 7 in Intake Visit Reasons: HEART BURN Chief Complaint: heartburn since last night Allergies bee venom protein (honey bee) Allergy (Verified 03/24/18 09:10) Unknown Medications Amlodipine [Norvasc] 10 mg PO DAILY #30 tab 09/27/16 [Rx Confirmed 03/24/18] Hydrochlorothiazide 12.5 mg PO DAILY 03/13/17 [History Confirmed 03/24/18] PFSH Medical History HTN (hypertension) (Chronic) Social History Smoking Status: Current every day smoker alcohol intake: never HPI HPI Chief Complaint: heartburn since last night Details: MICHEAL DILLON, is a 52 M who presents to the office today for persistent heartburn since last night. He insists the pain goes away once he belches but continues to hold center off his chest. Heart rate is regular rhythm, borderline tachycardic at 100-102. No diaphoresis. He smokes and has hypertention. Patient is alert and oriented. calm, conversant. As we have no EKG on site here, he was recommended ED transport. Spent several minutes discussing need for him to go to the ER and explained that this is heart related until proven otherwise, and that his pain does not go away after her belches or he wouldn't be here. He continued to argue that he just needs something for his indigestion. He refused ambulance transport x 2 inspite of my medical recommendation. He left AMA stating he would go directly from here to the [facility] ED where they could evaluate him and get rid of his hearburn if thats what they determine it is. Assessment AND Plan Problems 1. Chest pain, unspecified type R07.9 2. Smoker F17.200 3. Hypertension, unspecified type I10 Plan To ED EDWIGE Patient left AMA to transport himself. Coding Level of Care Code Off vis,est,level 3 Diagnoses Chest pain, unspecified type R07.9 Chest pain type: unspecified Smoker F17.200 Hypertension, unspecified type I10 Hypertension type: unspecified 03/24/18 1438 <Electronically signed by Margo SUH> Date Margo SUH Cosigner Signature: Date (if applicable) CC: ACT ACTIVATED CLOTTING Collected: 03/24/2018 Status: F Source: [facility] TIME 10:37 AM [facility] TYPE CODE TESTS RESULT OUT OF RANGE REFERENCE UNITS LAB L9100.0100 74-137 sec High ACTk CLOT 175 TIME Performed By: #### L9100.0100 #### [facility] Point of Care [address] [place] [address] ACT ACTIVATED CLOTTING Collected: 03/24/2018 Status: F Source: [facility] TIME 10:13 AM [facility] TYPE CODE TESTS RESULT OUT OF RANGE REFERENCE UNITS LAB L9100.0100 74-137 sec High ACTk CLOT 147 TIME Performed By: #### L9100.0100 #### [facility] Point of Care [address] [place] [address] EMERGENCY DEPARTMENT Observed: 03/24/2018 Status: F Source: [facility] SUMMARY 9:30 AM [facility] Medical Records Department [address] [place] [address] Emergency Department Summary 03/24/18 0926 MR#: [id number] Acct: [id number] Name: MICHEAL DILLON Rep #: [id number] : 1965 52 From: Lorenzo Arreola MD PCP: Esa Sparrow MD Status: REG ER - ER Visit Summary Date of Service: 03/24/18 Chief Complaint: Chest pain History of Present Illness: The patient is a 52 M who presents with chest pain for the past 12 hours, he describes it as indigestion and he is trying to belch he thinks this will make it better. He has no radiation to his back. He has no neurological symptoms and he has no jaw pain associated with this. He has no fever or chills. Physical Examination: Patient appears in some distress Moist mucous membranes, no obvious facial deformity No C-spine tenderness supple neck. Regular rate and rhythm without any obvious murmurs Clear lungs bilaterally speaking in full sentences without any obvious respiratory distress Abdomen soft and nontender no guarding or rebound Moves all extremities without any difficulty or pain. Skin does not show any obvious rashes or lesions, no trauma. Alert oriented 3 with no gross focal deficit Emergency department treatment and course of events: Initial EKG showed ST elevation in V1, with reciprocal's in 2 3 and aVF, I repeated a second EKG right away and patient has a STEMI. I activated the STEMI team. I talked to Dr. Singh who will see the patient. Brilinta, aspirin and heparin were given. He was hypertensive tachycardic I gave him some Lopressor and will manage this also. Admit to [facility] [employer] Impression: Acute ST elevation myocardial infarction Critical care time 35 minutes This note was generated with [employer] dictation software. It may contain incorrect words, spelling, and punctuation that were not noted in review of the chart prior to signing ED Disposition - Plan for ED Patient: Chief Complaint: Chest Pain Referrals: Patrick Sparrow MD [Primary Care Provider] - What to do if you have Problems For any increased pain, shortness of breath, bleeding, nausea or vomiting, chest pain, or any unexpected problems, contact your Primary Care Provider. Call [facility] ([phone]) or report to the closest Emergency Room. Call 911 if necessary. 03/24/18 6866 <Electronically signed by Lorenzo Arreola MD> Date Lorenzo Arreola MD Cosigner Signature (If Indicated): Date CC: Esa Sparrow MD CHEST 1 VIEW Observed: 03/24/2018 Status: F Source: [place] (PORTABLE) 9:21 AM [facility] RE[facility]IT[facility] Imaging Services [address] [place] [address] Chest 1 View (Portable) MR#: [id number] Acct: [id number] Name: MICHEAL DILLON Rep #: [id number] : 1965 M 52 From: Hector Wall MD PCP: Esa Sparrow MD Status: REG ER Study: Chest 1 View (Portable) Date of Exam: 03/24/18 Exam# [id number] Ordering Dr: Lorenzo Arreola MD STUDY: X-RAY CHEST REASON FOR EXAM: Male, 52 years old. Chest pain. TECHNIQUE: Single AP portable view of the chest. COMPARISON: None. FINDINGS: The lungs are clear and expanded. There is no demonstrated pleural abnormality. Normal size heart. Normal mediastinum and edis. Normal visualized pulmonary arteries. Normal visualized aortic arch and descending thoracic aorta. The thoracic spine is suboptimally seen. There are degenerative changes in the right acromioclavicular joint. There is no demonstrated abnormality of the visualized soft tissue structures of the upper abdomen. RAD/Chest 1 View (Portable) IMPRESSION: No active pulmonary disease. Electronically Signed: Hector Wall MD at 9:52 EST Tel , Service support , CC: Esa Sparrow MD; Lorenzo Arreola MD [place]: Signed PROTHROMBIN TIME W/INR Collected: 03/24/2018 Status: F Source: [place] 9:15 AM [facility]PITAL REPOSITORY TYPE CODE TESTS RESULT OUT OF RANGE REFERENCE UNITS LAB L300.4150 11.7-14.9 SECONDS Normal PROTIME 12.5 LAB L300.4200 Normal INR 0.9 Performed By: #### L300.3900, L300.4310 #### [facility] [address] [place], [address] PARTIAL THROMBOPLAST Collected: 03/24/2018 Status: F Source: [place] 9:[place] [facility] [place] CODE TESTS RESULT OUT OF REFERENCE UNITS RANGE LAB L300.4310 24.1-36.2 Seconds Low PTT 24.0 Performed By: #### L300.3900, L300.4310 #### [facility] [address] [place], [address] CBC W/DIFF, AUTOMATED Collected: 03/24/2018 Status: F Source: [place] 9:15 AM [facility] [place] TYPE CODE TESTS RESULT OUT OF RANGE REFERENCE UNITS LAB L100.1000 4.4-11.0 K/mm3 High WBC 12.3 LAB L100.1200 4.6-6.2 M/mm3 Normal RBC 4.99 LAB L100.1300 13.0-16.5 g/dl Normal HGB 15.2 LAB L100.1400 40-54 % Normal HCT 44.3 LAB L100.1500 80-94 fL Normal MCV 88.8 LAB L100.1600 27.0-32.0 pg Normal MCH 30.5 LAB L100.1700 32-36 g/gl Normal MCHC 34.3 LAB L100.1810 11.6-14.6 % Normal RDW CV 13.5 LAB L100.1820 35.1-43.9 fl Normal RDW SD 43.9 LAB L100.1900 150-450 K/mm3 Normal PLT 315 LAB L100.2000 6.2-12.0 fl Normal MPV 10.2 LAB L100.2100 47-70 % High NEUT% 78.1 LAB L100.2200 19-41 % Low LY% 12.3 LAB L100.2300 0-10 % Normal MONO% 8.2 LAB L100.2400 0-5 % Normal EO% 1.0 LAB L100.2500 0-1 % Normal BASO% 0.2 LAB L100.2550 0.0-0.9 % Normal IM GRAN % 0.200 Result Comment: IG% - Immature Granulocytes (promyelocytes, myelocytes and metamyelocytes) > 1% indicates that a LEFT SHIFT is Present. LAB L100.2620 2.0-7.7 X10 3/uL High Absolute Neut 9.6 LAB L100.2720 0.83-4.51 X10 3/ul Normal Absolute Lymph 1.51 Performed By: #### L100.0100 #### [facility] [address] [place], [address] BASIC METABOLIC Collected: 03/24/2018 Status: F Source: [place] PROFILE (BMP) 9:15 AM [facility] [place] CODE TESTS RESULT OUT OF RANGE REFERENCE UNITS LAB L501.0100 74-106 mg/dL High GLU 134 Result Comment: Fasting Glucose result greater than or equal to 126 mg/dL suggests DIABETES MELLITUS per A.D.A. criteria. Please note revised GLUCOSE reference range effective 2017. LAB L501.1000 7-18 mg/dL Normal BUN 12 LAB L501.1100 0.70-1.30 mg/dL Normal CREAT,SERUM 1.11 Result Comment: The validity of the calculated GFR AND GFRAA in patients over 70 years has not been determined. Clinical correlation is essential. LAB L501.1110 >60 mL/min Normal EST GFR 74 Result Comment: Non- GFR Calc LAB L501.1115 >60 mL/min Normal EST GFR - AA 89 Result Comment: GFR Calc LAB L501.1255 ml/min Normal Estimated CRCL 77.85 LAB L501.1300 10-20 RATIO Normal BUN/CRE 10.8 LAB L501.2200 8.5-10 mg/dL High .1 CA 10.9 LAB L501.5300 136-14 mmol/L Normal 5 NA 141 LAB L501.5600 3.5-5. mmol/L Normal 1 K 3.8 LAB L501.5900 98-107 mmol/L Normal CL 103 LAB L501.6100 21.0-3 mmol/L Normal 2.0 CO2 27.0 LAB L501.6200 5-15 Normal GAP 11 Performed By: #### L500.2500, L501.4010 #### [facility] [address] [place], [address] TROPONIN-I Collected: 03/24/2018 Status: F Source: [place] 9:[place] [facility] [place] CODE TESTS RESULT OUT OF RANGE REFERENCE UNITS LAB L501.4010 <0.045 ng/mL High 0.252 TROPONIN-I Result Comment: TROPONIN-I EXPECTED VALUES <0.045 Negative 0.045 - 0.590 Consistent with Cardiac Damage > OR = 0.600 Critical Value Not every elevated troponin is indicative of VT. These values should be used with clinical judgement in examining the patient's clinical picture for diagnosis. To establish a diagnosis of VT versus myocardial injury, there must be a demonstrated rise and/or fall in the troponin values, in addition to ischemic symptoms, EKG changes, new regional wall motion abnormality, and/or angiographical evidence. PLEASE NOTE: REFERENCE RANGES EDITED 17 Performed By: #### L500.2500, L501.4010 #### [facility] [address] [place], [address] HEMOGLOBIN A1C Collected: 03/24/2018 Status: F Source: [place] 9:[place] [facility] [place] CODE TESTS RESULT OUT OF RANGE REFERENCE UNITS LAB L501.9985 4.2-6.3 % Normal HGB A1C 5.4 Performed By: #### L501.9985 #### [facility] [address] [place], [address] ALLERGIES ALLERGIES DATE TYPE / CODE NAME / CODE REACTION SEVERITY SOURCE 05/15/2018 Drug bee venom Unknown Unknown [facility] Allergy/4160 protein ([facility] [address](SNOMED bee)/L30670272 Repository CT) 5(RXNORM) ENCOUNTERS ENCOUNTERS ADMIT/DISCHARGE ACCOUNT ADMITTING ENCOUNTER LOCATION SOURCE NUMBER CLASS 05/18/2018 [id number] Ambulatory Waucoma Waucoma 8 [facility] ing:LAB Repository 05/15/2018/ [id number] Amb[facility] 05/11/2018/ [id number] Emergency [place] [address] 5 [facility] ing:ED Repository 05/04/2018/ [id number] Ambulatory BMSBuilding:B [facility] 9 2 [facility] Rep[facility] 04/21/2018 [id number] Ambulatory [facility]:B [facility] 8 [facility] Rep[facility] 04/20/2018/ [id number] Ambulatory BMSBuilding:W [place] 8 7 [facility] Repository 04/20/2018 [id number] Ambulatory BMSBuilding:W Waucoma 8 [facility] Repository 04/20/2018/ [id number] Ambulatory Waucoma Waucoma 8 9 [facility] ing:CLSPRoom: Repository [id number] 04/17/2018 [id number] Ambulatory BMSBuilding:B [facility] 2 [facility] Rep[facility] 04/17/2018 [id number] Ambulatory BMSBuilding:W [place] 7 [facility] Repository 04/17/2018 [id number] Ambulatory Waucoma Waucoma 7 [facility] ing:[facility] Repository 04/16/2018 [id number] Ambulatory BMSBuilding:B [place] 3 [facility] Repository 04/16/2018 [id number] Ambulatory [place] Waucoma 6 [facility] ing:[facility] Repository 04/12/2018/ [id number] Ambulatory BMSBuilding:B [place] 8 2 [facility] Repository 03/24/2018 [id number] [place], Ambulatory BMSBuilding:B [place] 2 [place] [facility] Repository 03/24/2018 [id number] [place], Ambulatory BMSBuilding:B [place] 9 [place] [facility] Repository 03/24/2018 [id number] [place], Ambulatory BMSBuilding:B [place] 3 [place] [facility] Repository 03/24/2018 [id number] [place], Ambulatory BMSBuilding:B W[place] 5 [place] [facility] Repository 03/24/2018 [id number] [place], Ambulatory BMSBuilding:B [place] 7 [place] [facility] Repository 03/24/2018 [id number] [place], Ambulatory BMSBuilding:B W[place] 6 [place] MS.WIP [facility] [place] [place] Repository 03/24/2018/ [id number] S[place], Inpatient Chiara Chiara 8 3 [place] Encounter [facility] ing:ICURoom: Repository THS25Acd: 1 03/24/2018/ [id number] Ambulatory BMSBuilding:W [place] 8 3 [facility] Repository 03/24/2018/ [id number] Ambulatory BMSBuilding:W Waucoma 8 6 [facility] Repository 03/24/2018/ [id number] Ambulatory BMSBuilding:B Waucoma 8 6 MS.NOW [facility] [place] [place] Repository PAYERS PAYERS ENCOUNTER GUARANTOR PAYER SUBSCRIBER SOURCE 05/18/2018 MICHEAL A Primary Insurance:[facility] MICHEAL A [place] [id number] [facility] [address] Number: Repository [address]Rny: 330 [id number] [phone] () Date:5914-65-68[address] [address]HYMRBFSRU, [place] [address]IX: CHECK WEBSITE 05/18/2018 Secondary NOT GIVENUNK Waucoma Insurance:SELF PAY [facility] Number: Effective Repository Date:2018-05-18 05/15/2018 MICHEAL A Primary Insurance:[facility] MICHEAL A Waucoma [id number] [facility] [address] Number: Repository [address]Sme: 330 [id number] [phone] () Date:4698-20-24VT [address] [address]YXFCSXPME, [place] [address]ZZ: CHECK WEBSITE 05/15/2018 Secondary NOT GIVENUNK Waucoma Insurance:SELF PAY [facility] Number: Effective Repository Date:2018-05-15 05/11/2018 MICHEAL A Primary Insurance:[facility] MICHEAL A [place] [id number] [facility] [address] Number: Repository [address]Tlq: 330 [id number] [phone] () Date:8341-31-06FL [address] [address]NKHXTVYVQ, [place] [address]DJ: CHECK WEBSITE 05/11/2018 Secondary NOT GIVENUNK Waucoma Insurance:SELF PAY [facility] Number: Effective Repository Date:2018-05-11 05/04/2018 MICHEAL A Primary Insurance:[facility] MICHEAL A [place] [id number] [facility] [address] Number: Repository [address]Zqa: 330 [id number] [phone] () Date:5390-92-22MH [address] [address]NFZTBEIRC, [place] [address]CP: CHECK WEBSITE 05/04/2018 Secondary NOT GIVENUNK [place] Insurance:SELF PAY [facility] Number: Effective Repository Date:2018-05-04 04/21/2018 MICHEAL A Primary Insurance:[facility] MICHEAL A Chi[place] [id number] [facility] [address] Number: Repository [address]Ute: 330 [id number] [phone] () Date:1707-79-22RY [address] [address]GQVHHVZLD, [place] [address]PH: CHECK WEBSITE 04/21/2018 Secondary NOT GIVENUNK Waucoma Insurance:SELF PAY [facility] Number: Effective Repository Date:2018-04-21 04/20/2018 MICHEAL A Primary Insurance:[facility] MICHEAL A [place] [id number] [facility] [address], [place] Number: Repository [address]Msm: 330 [id number] [phone] () Date:0282-39-00[address] [address]CGTFYIMOH, [place] [address]RU: CHECK WEBSITE 04/20/2018 Secondary NOT GIVENUNK [place] Insurance:SELF PAY [facility] Number: Effective Repository Date:2018-04-20 04/20/2018 MICHEAL A Primary Insurance:[facility] MICHEAL A Waucoma [id number] [facility] 8399-23-[place] Number: Repository [address]Bwj: 330 [id number] [phone] () Date:9665-00-30IQ [address] [address]EGXDPOATX, [place] [address]GA: CHECK WEBSITE 04/20/2018 Secondary NOT GIVENUNK [place] Insurance:SELF PAY [facility] Number: Effective Repository Date:2018-04-20 04/20/2018 MICHEAL A Primary Insurance:[facility] MICHEAL A Waucoma [id number] [facility] [id number] Number: Repository [address]Bke: 330 [id number] [phone] () Date:1128-28-04MA [address] [address]YZDVLGNOG, [place] [address]AC: CHECK WEBSITE 04/20/2018 Secondary NOT GIVENUNK [place] Insurance:SELF PAY [facility] Number: Effective Repository Date:2018-04-18 04/17/2018 MICHEAL A Primary Insurance:[facility] MICHEAL A [place] [id number] [facility] [address] Number: Repository [address]Ltb: 330 [id number] [phone] () Date:7081-11-38DD [address] [address]XKKUNMASH, [place] [address]XH: CHECK WEBSITE 04/17/2018 Secondary NOT GIVENUNK [place] Insurance:SELF PAY [facility] Number: Effective Repository Date:2018-04-17 04/17/2018 MICHEAL A Primary Insurance:[facility] MICHEAL A Waucoma [id number] [facility] [address] Number: Repository [address]Sew: 330 [id number] [phone] () Date:4179-80-21IF [address] [address]QJULONQMD, [place] [address]LR: CHECK WEBSITE 04/17/2018 Secondary NOT GIVENUNK Waucoma Insurance:SELF PAY [facility] Number: Effective Repository Date:2018-04-17 04/17/2018 MICHEAL A Primary Insurance:[facility] MICHEAL A Chi[place] [id number] [facility]: [address] Number: Repository [address]Yoy: 330 [id number] [phone] () Date:0681-78-14SW [address] [address]FDHKVYTBU, [place] [address]RC: CHECK WEBSITE 04/17/2018 Secondary NOT GIVENUNK [place] Insurance:SELF PAY [facility] Number: Effective Repository Date:2018-04-12 04/16/2018 MICHEAL A Primary Insurance:[facility] MICHEAL A [place] [id number] [facility]: [address] Number: Repository [address]Chb: 330 [id number] [phone] () Date:6143-47-45UT [address] [address]EYKKAJPDG, [place] [address]NI: CHECK WEBSITE 04/16/2018 Secondary NOT GIVENUNK Waucoma Insurance:SELF PAY [facility] Number: Effective Repository Date:2018-04-16 04/16/2018 MICHEAL A Primary Insurance:[facility] MICHEAL A [place] [id number] [facility]: [address] Number: Repository [address]Cbd: 330 [id number] [phone] () Date:1383-23-49KM [address] [address]OWNHTEBFB, [place] [address]OY: CHECK WEBSITE 04/16/2018 Secondary NOT GIVENUNK [place] Insurance:SELF PAY [facility] Number: Effective Repository Date:2018-04-12 04/12/2018 MICHEAL A Primary Insurance:[facility] MICHEAL A Waucoma [id number] [facility]: [address] Number: Repository [address]Ozl: 330 [id number] [phone] (HP) Date:5536-30-57GO [address] [address]UFPQZDVHI, [place] [address]ZF: CHECK WEBSITE 04/12/2018 Secondary NOT GIVENUNK Chi[place] Insurance:SELF PAY [facility] Number: Effective Repository Date:2018-04-12 03/24/2018 MICHEAL A Primary Insurance:[facility] MICHEAL A Chi[place] [id number] [facility]: [facility] 8014-04-[place] Number: Repository [address]Xok: 330 [id number] [phone] () Date:5936-79-72GC [address] [address]HWVERWXOH, [place] [address]JG: CHECK WEBSITE 03/24/2018 Secondary NOT GIVENUNK [place] Insurance:SELF PAY [facility] Number: Effective Repository Date:2018-03-24 03/24/2018 MICHEAL A Primary Insurance:[facility] MICHEAL A [place] [id number] [facility]: [address], [place] Number: Repository [address]Ruv: 330 [id number] [phone] () Date:0459-82-76WS [address] [address]APYCOHFUU, [place] [address]FZ: CHECK WEBSITE 03/24/2018 Secondary NOT GIVENUNK Waucoma Insurance:SELF PAY [facility] Number: Effective Repository Date:2018-03-24 03/24/2018 MICHEAL A Primary Insurance:[facility] MICHEAL A Chi[place] [id number] [facility]: [address], [place] Number: Repository [address]Cbz: 330 [id number] [phone] () Date:3104-62-26FY [address] [address]XXDTHEBPY, [place] [address]UN: CHECK WEBSITE 03/24/2018 Secondary NOT GIVENUNK Chi[place] Insurance:SELF PAY [facility] Number: Effective Repository Date:2018-03-24 03/24/2018 MICHEAL A Primary Insurance:[facility] MICHEAL A Waucoma [id number] [facility]: [place] [address], [place] Number: Repository [address]Ddc: 330 [id number] [phone] () Date:2364-92-12UC [address] [address]JPDVXYYOC, [place] [address]RO: CHECK WEBSITE 03/24/2018 Secondary NOT GIVENUNK Waucoma Insurance:SELF PAY [facility] Number: Effective Repository Date:2018-03-24 03/24/2018 MICHEAL A Primary Insurance:[facility] MICHEAL A Waucoma [id number] [facility]: [facility] 2700-62-26[place] Number: Repository [address]Aye: 330 [id number] [phone] () Date:0691-21-81FV [address] [address]RFQPUTSNR, [place] [address]BQ: CHECK WEBSITE 03/24/2018 Secondary NOT GIVENUNK Waucoma Insurance:SELF PAY [facility] Number: Effective Repository Date:2018-03-24 03/24/2018 MICHEAL A Primary Insurance:[facility] MICHEAL A Chi[place] [id number] [facility]: [facility] 0110-67-62AAHLans[place], [place] Number: Repository [address]Qxq: 330 [id number] [phone] () Date:7208-81-72QJ [address] [address]SSSOGKJZL, [place] [address]MR: CHECK WEBSITE 03/24/2018 Secondary NOT GIVENUNK [place] Insurance:SELF PAY [facility] Number: Effective Repository Date:2018-03-24 03/24/2018 MICHEAL A Primary Insurance:[facility] MICHEAL A Waucoma [id number] [facility]: [facility] 2913-17-29QAHLansford, [place] Number: Repository [address]Kbq: 330 [id number] [phone] () Date:7898-79-89ZC [address] [address]GIVGJOYCW, [place] [address]LK: CHECK WEBSITE 03/24/2018 Secondary NOT GIVENUNK Waucoma Insurance:SELF PAY [facility] Number: Effective Repository Date:2018-03-24 03/24/2018 MICHEAL A Primary Insurance:[facility] MICHEAL [place] Waucoma [id number] [facility]: [address] Number: Repository [address]Rkv: 330 [id number] [phone] (HP) Date:3211-04-69XC [address] [address]KILQLCRSK, [place] [address]DB: CHECK WEBSITE 03/24/2018 Secondary NOT GIVENUNK [place] Insurance:SELF PAY [facility] Number: Effective Repository Date:2018-03-24 03/24/2018 MICHEAL A Primary Insurance:[facility] MICHEAL A Waucoma [id number] [facility] [address] Number: Repository [address]Flv: 330 [id number] [phone] () Date:7889-22-81FV [address] [address]RWIWDKISK, [place] [address]DG: CHECK WEBSITE 03/24/2018 Secondary NOT GIVENUNK Waucoma Insurance:SELF PAY [facility] Number: Effective Repository Date:2018-03-24 03/24/2018 MICHEAL Primary Insurance:[facility] MICHEAL [id number] [facility]: [address] Number: Repository [address]Hee: 330 [id number] [phone] () Date:4632-65-06KI [address] [address]VNMYGEOCD, [place] [address]AH: CHECK WEBSITE 03/24/2018 Secondary NOT GIVENUNK Waucoma Insurance:SELF PAY [facility] Number: Effective Repository Date:2018-03-24
== END ==
PROVIDERS: Family Provider Family Medicine; PCP Family Medicine; Referring Provider Internal Medicine Cardiovascular Disease; Visit Provider Internal Medicine Cardiovascular Disease
DX: I25.10 Atherosclerotic heart disease of native coronary artery without angina pectoris (principal)
CPT/HCPCS: 93306

== ENCOUNTER → 2018-04-17 10:25 | Outpatient (CLI) | payer OTHER, SELFPAY ==
[2018-03-26 07:30] VITALS: BMI 29.5
[2018-04-12 15:06] VITALS: BMI 31.3
--- NOTE | 2018-04-17 10:26 | STE_ITS ---
Reason For Study: CAD/ASHD Stress Results Protocol: Papi Protocol Maximum Predicted HR: 168 bpm Target HR: 143 bpm % Maximum Predicted HR: 101 % DurationHeart Rate Stage (mm:ss) (bpm) BP Comment BASELINE 72 148/94 STAGE 1 3:00 123 210/90 STAGE 2 2:30 169 230/100INCREASED SOB, NO CHEST PAIN RECOVERY 89 150/82 Stress Duration: 5:30 mm:ss Maximum Stress HR: 169 bpm Baseline Echocardiogram Findings The estimated ejection fraction is 65 %. Stress Echo Wall motion Data Resting WM Intermediate WM Stress WM Resting Wall Motion Wall Motion Stress No regional wall motion Posterior-Basal: Mildly abnormalities noted. hypokinetic. Mid-Lateral : Mildly hypokinetic. EKG Data The baseline ECG displays normal sinus rhythm. The patient exercised according to the regular Papi protocol for a total duration of 5:30. The maximum heart rate attained was 169 beats per minute. This was 100% of maximum predicted heart rate. The patient exercised into stage 2 of the Papi protocol. During stress, there were no ST or T wave changes noted to suggest ischemia. No clinical angina was noted. Interpretation Summary The estimated ejection fraction is 65 %. Posterior-Basal: Mildly hypokinetic Mid-Lateral : Mildly hypokinetic Abnormal, adequate, treadmill echocardiogram. Positive for ischemia by echocardiographic criteria. No anginal symptoms noted. Hypertensive blood pressure response to exercise. Below average exercise capacity for age. Patient developed mild hypokinesis of the posterior lateral yee at peak exercise consistent with left circumflex territory. Rare PVCs noted during exercise. Test terminated due to dyspnea. Final LVEF of 60%. No complications. Ordering Physician: Dustin Singh Referring Physician: Dustin Singh Performed By: Zeenat Soni RDCS
--- OUTSIDE RECORDS SUMMARY | 2018-07-19 18:35 | XMS RPT_ITS ---
:1965 Author Organization [place] Support Name Relationship Address Phone SARINA WINCHESTER Unavailable [address] + [place] [address] [facility] Unavailable [address] + [place] [address] SARINA WINCHESTER Unavailable [address] + [place] [address] [facility] Unavailable [address] + [place] [address] SARINA WINCHESTER Unavailable [address] + [place] [address] [facility] Unavailable [address] + [place] [address] ZACARIAS WINCHESTERYL Unavailable [address] + [place] [address] [facility] Unavailable [address] + [place] [address] ZACARIAS WINCHESTERYL Unavailable [address] + [place] [address] [facility] Unavailable [address] + [place] [address] ZACARIAS WINCHESTERYL Unavailable [address] + [place] [address] [facility] Unavailable [address] + [place] [address] ZACARIAS WINCHESTERYL Unavailable [address] + [place] [address] [facility] Unavailable [address] + [place] [address] ZACARIAS WINCHESTERYL Unavailable [address] + [place] [address] [facility] Unavailable [address] + [place] [address] ANNABELLA, SARINA Unavailable [address] + [place] [address] [facility] Unavailable [address] + [place] [address] ANNABELLA, SARINA Unavailable [address] + [place] [address] [facility] Unavailable [address] + [place] [address] ANNABELLA, SARINA Unavailable [address] + [place] [address] [facility] Unavailable [address] + [place] [address] ANNABELLA, SARINA Unavailable [address] + [place] [address] [facility] Unavailable [address] + [place] [address] ANNABELLA, SARINA Unavailable [address] + [place] [address] [facility] Unavailable [address] + [place] [address] ANNABELLA, SARINA Unavailable [address] + [place] [address] [facility] Unavailable [address] + [place] [address] ANNABELLA, SARINA Unavailable [address] + [place] [address] [facility] Unavailable [address] + [place] [address] ANNABELLA, SARINA Unavailable [address] + [place] [address] [facility] Unavailable [address] + [place] [address] ANNABELLA, SARINA Unavailable [address] + [place] [address] [facility] Unavailable [address] + [place] [address] ANNABELLA, SARINA Unavailable [address] + [place] [address] [facility] Unavailable [address] + [place] [address] ANNABELLA SARINA Unavailable [address] + [place] [address] [facility] Unavailable [address] + [place] [address] ANNABELLA, SARINA Unavailable [address] + [place] [address] [facility] Unavailable [address] + [place] [address] ANNABELLA, SARINA Unavailable [address] + [place] [address] [facility] Unavailable [address] + [place] [address] ANNABELLA, SARINA Unavailable [address] + [place] [address] [facility] Unavailable [address] + [place] [address] ANNABELLA SARINA Unavailable [address] + [place] [address] [facility] Unavailable [address] + [place] [address] ANNABELLA SARINA Unavailable [address] + [place] [address] [facility] Unavailable [address] + [place] [address] Care Team Providers Name Role Phone Dustin Singh Attending Unavailable Dustin Singh Referring Unavailable [facility] Unavailable Dustin Singh Attending Unavailable Dustin Singh Referring Unavailable [facility] Primary [facility] Unavailable Dustin Singh Attending Unavailable Dustin Singh Referring Unavailable [facility] Primary [facility] Unavailable Dustin Singh Consulting Unavailable Dustin Singh Attending Unavailable Dustin Singh Referring Unavailable [facility] Primary Care Unavailable Dustin Singh Consulting Unavailable Dustin Singh Attending Unavailable Dustin Singh Referring Unavailable Dustin Singh Attending Unavailable Dustin Singh Referring Unavailable Dustin Singh Attending Unavailable Dustin Singh Referring Unavailable Sementi, Mildred Admitting Unavailable Dustin Singh Attending Unavailable Sementi, Mildred Referring Unavailable [facility] Primary Care Unavailable Jac Schumacher Consulting Unavailable Sementi, Mildred Consulting Unavailable Sementi, Mildred Admitting Unavailable Tereletsky, Ronald Attending Unavailable Sementi, Mildred Referring [facility] Unavailable Singh, Dustin Consulting Unavailable Tereletsky, Ronald Consulting Unavailable Phyllis Buchanan Attending Unavailable Ranney, Christopher Referring Unavailable Singh, Dustin Attending Unavailable Singh, Dustin Referring [facility] Unavailable Phyllis Buchanan Attending Unavailable Ran[facility] Referring Unavailable Deonte Singhel Attending Unavailable Singh, Dustin Referring [facility] Unavailable Singh, Dustin Consulting Unavailable Endy, [place] Attending Unavailable Singh, Dustin Referring Unavailable Singh, Dustin Attending Unavailable Singh, Dustin Referring Unavailable Singh, Dustin Attending Unavailable [facility] Referring Unavailable [facility] Primary Care Unavailable Sementi, Mildred Admitting Unavailable Sementi, Mildred Referring Unavailable Endy, Jac Consulting Unavailable Suzanne, Ronald Attending Unavailable Margo Jang Attending [facility]available [facility] Referring Unavailable [facility] Primary Care Unavailable Howie Wallace Attending Unavailable Singh, Dustin Attending Unavailable Singh, Dustin Referring [facility]available [facility] Unavailable Sementi, Mildred Admitting Unavailable Singh, Dustin Attending Unavailable Sementi, Mildred Referring Unavailable [facility] Care Unavailable Endy, [place] Consulting Unavailable Tereletsky, Ronald Consulting Unavailable Sementi, Mildred Admitting Unavailable Koram, Ellie Zita Attending Unavailable Sementi, Mildred Referring Unavailable [facility] Primary Care Unavailable Endy, Jac Consulting Unavailable Koram, Ellie Zita Consulting Unavailable Sementi, Mildred Admitting Unavailable Sementi, Mildred Attending Unavailable Sementi, Mildred Referring Unavailable [facility] Primary Care Unavailable Endy, [place] Consulting Unavailable Sementi, Mildred Consulting Unavailable Sementi, Mildred Admitting Unavailable Sementi, Mildred Attending Unavailable Sementi, Mildred Referring [facility]available [facility] Unavailable Sementi, Mildred Consulting Unavailable PROBLEMS PROBLEMS DATE TYPE CONDITION / CODE ATTENDING STATUS SOURCE Unknown I25.10 - Atherosclerotic Dewayne, Active [place] 9 heart disease of [place] Phyllis Iverson [facility] coronary artery without Hospital angina pectoris / Repository I25.10(ICD-10) Unknown I10 - Essential (primary) Dewayne Active [place] 9 hypertension / Phyllis Iverson [facility] I10(ICD-10) Hospital Repository Unknown E78.00 - Pure Dewayne, Active [place] 9 hypercholesterolemia, Phyllis Iverson Community unspecified / Hospital E78.00(ICD-10) Repository Unknown E78.0 - Pure Dewayne, Active [place] 9 hypercholesterolemia / Phyllis Iverson [facility] E78.0(ICD-10) Hospital Repository Unknown R94.39 - Abnormal result Dustin Singh Active [place] 9 of other cardiovascular Community function study / Hospital R94.39(ICD-10) Repository Unknown R94.31 - Abnormal Singh Dustin Active [place] 9 electrocardiogram [ECG] [facility] [EKG] / R94.31(ICD-10) Hospital Repository Unknown E78.5 - Hyperlipidemia, Dustin Singh Active [place] 8 unspecified / Community E78.5(ICD-10) Hospital Repository Unknown F17.200 - Nicotine Dustin Singh Active [place] 8 dependence, unspecified, Community uncomplicated / Hospital F17.200(ICD-10) Repository Unknown I21.3 - ST elevation Endy, [place] Active [place] 8 (STEMI) myocardial Community infarction of unspecified Hospital site / I21.3(ICD-10) Repository Unknown F17.210 - Nicotine Endy, [place] Active [place] 8 dependence, cigarettes, Community uncomplicated / Hospital F17.210(ICD-10) Repository PROCEDURES PROCEDURES No Procedure Records FoundRESULTS RESULTS LIVER PROFILE Collected: 05/18/2018 Status: F Source: [place] 6:40 AM [facility] HOSPITAL REPOSITORY TYPE CODE TESTS RESULT [...] 0.12 Performed By: #### L500.3400, L500.4100 #### [facility] [address] [place], [address] LIPID PROFILE Collected: 05/18/2018 Status: F Source: [place] 6:40 AM [facility] REPOSITORY TYPE CODE TESTS RESULT OUT [...] 16 Performed By: #### L500.3400, L500.4100 #### [facility] [address] [place], [address] CARDIOLOGY VISIT Observed: 05/16/2018 Status: F Source: [place] REPORT 2:29 PM [facility] REPOSITORY [facility] [address] [place] [address] OFFICE VISIT Date of Service: 05/15/18 MR#: [id number] Acct: [id number] Name: MICHEAL DILLON Rep #: [id number] : 1965 Provider: Phyllis Buchanan Age/Sex: 52/M Location: [facility] [place] Status: Signed HPI HPI Chief Complaint: Routine [...] 20. He was emergently brought to the [employer] [employer] [facility] where he was found to have a [...] 31.7 Intake Visit Reasons: F/U, WAS IN [facility] ER - BP ISSUES Accompanied by: [...] (Resolved) Hyperlipidemia (Chronic) Atherosclerotic heart disease of [place] coronary artery without angina pectoris (Chronic) ST elevation [place] (STEMI) (Chronic 03/24/18) Hypertension (Chronic) Nicotine dependence [...] affect Assessment AND Plan 1. Atherosclerosis of [place] coronary artery of [place] heart without angina pectoris I25.10 STEMI,YAMILA of proximal LAD (2.5 X 24 [employer]nergy) per Dr. Singh @ [facility] Plan - VIKASH Medel Pt has [...] he was on Hyzaar prior to his [place]. Patient Instructions - VIKSAH Medel increase your lisinopril to 20 mg [...] Code Off vis,est,level 4 Diagnoses Atherosclerosis of [place] coronary artery of [place] heart without angina pectoris I25.10 [place] vs. transplanted heart: [place] heart Essential hypertension I10 Hypertension type: essential hypertension Pure hypercholesterolemia E78.00 Hyperlipidemia type: pure hypercholesterolemia Coding Level of Care Code Off vis,est,level 4 Diagnoses Atherosclerosis of [place] coronary artery of [place] heart without angina pectoris I25.10 [place] vs. transplanted heart: [place] heart Essential hypertension I10 Hypertension type: essential [...] 05/16/18 1429<Electronically signed by Dustin Singh MD> [facility] Signature: Date (if applicable) Dustin Singh MD CC: Esa Sparrow MD 12 LEAD ELECTROCARDIOGRAM Observed: 05/15/2018 Status: F Source: [place] 4:59 PM [facility] REPOSITORY [facility] Cardiovascular Services [address] [facility] [place] [address] 12 Lead EKG 05/11/18 0725 MR#: [id number] Acct: [id number] Name: MICHEAL DILLON Rep #: [id number] : 1965 52 From: Jac Schumacher MD [...] ECG Confirmed by JAC SCHUMACHER MD ([id number]), newspaper editor ARJUN HERNANDEZ ([id number]) on 05/15/2018 4:59:40 PM Referred By: JARED Confirmed By:JAC SCHUMACHER MD 05/15/18 1659 Date Jac Schumacher MD CC: Esa Sparrow MD; Howie Wallace Signed EMERGENCY DEPARTMENT Observed: 05/11/2018 Status: F Source: [place] SUMMARY 9:[address] [facility] Medical Records Department [address] [facility] [place] [address] Emergency Department Summary 05/11/18 0743 MR#: [id number] Acct: [id number] Name: MICHEAL DILLON Rep #: [id number] : 1965 52 From: Howie Painting PCP: [...] vomiting or diarrhea. Normal stools. Patient reported [place] this past March. He is followed by [...] his metoprolol this morning. Prior to his [place] he was on blood pressure medicines this was changed after his [place]. States he does have white coat syndrome. [...] pressure was 150/90. I discussed with covering employment service specialist Dr. Jenkins, discussed his medications, will increase his lisinopril to 10 mg daily. He will bulk picker a blood pressure cuff to check it in the morning and at night to keep a log. He will call Dr. Snigh's office for follow-up. Patient was ambulated by myself with no difficulties. Treatment Plan: [] Disposition: Discharge Impression: 1. Near syncope 2. Elevated blood pressure This note was generated with [employer] dictation software. It may contain incorrect words, [...] at home. Start 10 mg dosing tomorrow. 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 Call Dr. Singh's office for blood pressure readings and follow-up. What to do if you have Problems For any increased pain, shortness of breath, bleeding, nausea or vomiting, chest pain, or any unexpected problems, contact your Primary Care Provider. Call [facility] ([phone]) or report to the closest Emergency Room. Call 911 if necessary. 05/11/18911 <Electronically signed by Howie Painting> Date Howie Painting Cosigner Signature (If Indicated): Date CC: Esa Sparrow MD BASIC METABOLIC Collected: 05/11/2018 Status: F Source: [place] PROFILE (BMP) 7:25 AM [facility] REPOSITORY TYPE CODE TESTS RESULT OUT [...] GAP 9 Performed By: #### L500.2500 #### [facility] [address] [place], [place], [address] CBC W/DIFF, AUTOMATED Collected: 05/11/2018 Status: F Source: [place] 7:25 AM [facility] REPOSITORY TYPE CODE TESTS RESULT OUT [...] Lymph 2.52 Performed By: #### L100.0100 #### [facility] [address] [place], [address] CARDIOLOGY VISIT Observed: 05/04/2018 Status: F Source: [place] REPORT 4:29 PM [facility] REPOSITORY [facility] [address] [place] [address] OFFICE VISIT Date of Service: 05/04/18 MR#: [id number] Acct: [id number] Name: MICHEAL DILLON Rep #: [id number] : 1965 Provider: Phyllis Buchanan Age/Sex: 52/M [...] 20. He was emergently brought to the [facility] where he was found to have a [...] that he does not sleep well at [facility] this is not new. He has successfully quit smoking, but finding it very difficult Intake Vital Signs05/04/18 Height 5 ft 9 in 05/04/18 Weight: 212 lb 05/04/18 Body Mass Index (BMI) 31.3 05/04/18 Blood Pressure 142/68 H 05/04/18 Blood Pressure Location Lt brachial Intake Visit Reasons: 2 WK S/P PCI Unit Receptionist Required: No Accompanied by: none Is patient [...] (Resolved) Hyperlipidemia (Chronic) Atherosclerotic heart disease of [place] coronary artery without angina pectoris (Chronic) ST elevation [place] (STEMI) (Chronic 03/24/18) Hypertension (Chronic) Nicotine dependence [...] affect Assessment AND Plan 1. Atherosclerosis of [place] coronary artery of [place] heart without angina pectoris I25.10 STEMI,YAMILA of proximal LAD (2.5 X 24 [employer] Synergy) per Dr. Singh @ [facility] Plan Pt has not had any [...] Code Off vis,est,level 3 Diagnoses Atherosclerosis of [place] coronary artery of [place] heart without angina pectoris I25.10 [place] vs. transplanted heart: [place] heart Hypertension, unspecified type I10 Hypertension type: unspecified Pure hypercholesterolemia E78.00; E78.0 Hyperlipidemia type: pure hypercholesterolemia Coding Level of Care Code Off vis,est,level 3 Diagnoses Atherosclerosis of [place] coronary artery of [place] heart without angina pectoris I25.10 [place] vs. transplanted heart: [place] heart Hypertension, unspecified type I10 Hypertension type: [...] Diagnostics Echocardiogram 04/16/18 Stress Echocardiogram 04/17/18 05/04/18 3886 <Electronically signed by Phyllis SUH> Date Phyllis SUH [facility] Signature: Date (if applicable) CC: Esa Sparrow MD DISCHARGE INSTRUCTION Observed: 04/27/2018 Status: F Source: [place] 8:21 AM [facility] REPOSITORY [facility] Medical Records Department [address] [place] [address] Instructions for Home/Discharge Instructions 04/20/18 1508 MR#: [id number] Acct: [id number] Name: MICHEAL DILLON Rep #: [id number] : 1965 52 From: Calixto Liao INSURANCE RISK SURVEYOR-C PCP: Esa Sparrow MD Status: DEP [facility] Discharge Diet: Low fat/ Low Cholesterol Discharge [...] to stop this medication, please call the [facility] first at [phone]. You will see Phyllis Physician Central Control Room Operator, with the [facility] on 05/04/2018 at 1:00 PM. [...] patient's physical, psychological, and social functioning. Health care trainer work in cardiac rehabilitation programs and assist you with getting the treatments you need to get stronger and healthier - like exercise, healthy eating habits, and medications. Cardiac rehabilitation has been show to help people with heart problems live longer and have better life enjoyment than people who do not go to cardiac rehabilitation. Please contact the Cardiac Rehabilitation Program at [facility] at in two weeks if you have not heard from them. 04/27/18 0821 <Electronically signed by Calixto VELAZCO> Date Calixto VELAZCO CC: Esa Sparrow MD Signed CBC-COMPLETE BLOOD CNT Collected: 04/21/2018 Status: F Source: [place] NO DIFF 5:20 AM [facility] REPOSITORY TYPE CODE TESTS RESULT OUT [...] MPV 10.3 Performed By: #### L100.0500 #### [facility] [address] [place], [place], [address] BASIC METABOLIC Collected: 04/21/2018 Status: F Source: [place] PROFILE (BMP) 5:20 AM [facility] REPOSITORY TYPE CODE TESTS RESULT OUT [...] GAP 10 Performed By: #### L500.2500 #### [facility] [address] [place], [place], [address] ACT ACTIVATED CLOTTING Collected: 04/20/2018 Status: F Source: [place] TIME 12:08 PM [facility] REPOSITORY TYPE CODE TESTS RESULT OUT OF RANGE REFERENCE UNITS LAB L9100.0100 74-137 sec High ACTk CLOT 175 TIME Performed By: #### L9100.0100 #### [facility] Point of Care [address] [place] [address] STRESS TEST ECHO W/O Observed: 04/18/2018 Status: F Source: [place] CONTRAST 2:03 PM [facility] HOSPITAL REPOSITORY [facility] Cardiovascular Services [address] [place] [address] Stress Test Echo w/o Contrast MR#: [id number] Acct: [id number] Name: MICHEAL DILLON Rep #: [id number] : 1965 52 From: Dustin Singh MD [...] Dictated: 04/17/18 1048 Date Transcribed: 04/18/18 1403 Configuration Management Consultant: Signed ECHOCARDIOGRAM COMPLETE Observed: 04/17/2018 Status: F Source: [place] 4:08 PM [facility] REPOSITORY [facility] Cardiovascular Services [address] [place] [address] Echo Complete 04/16/18 1256 MR#: [id number] Acct: [id number] Name: MICHEAL DILLON Rep #: [id number] : 1965 52 From: Dustin Singh MD Attending Dr: Dustin Singh MD Status: REG CLI Ordering Dr: Dustin Singh MD Date: 04/16/18 Location: [facility] Sex: M C Admitted: Reason For Study: [...] Dictated: 04/16/18 1256 Date Transcribed: 04/17/18 1607 Configuration Management Consultant: Signed CARDIOLOGY VISIT Observed: 04/12/2018 Status: F Source: [place] REPORT 3:38 PM [facility] REPOSITORY [facility] [address] [place] [address] OFFICE VISIT Date of Service: 04/12/18 MR#: [id number] Acct: [id number] Name: MICHEAL DILLON Rep #: [id number] : 1965 Provider: Dustin Singh MD Age/Sex: 52/M Location: [facility] Status: Signed HPI HPI Chief Complaint: Routine [...] release. He was emergently brought to the [facility] [employer] [facility] where he was found to have a [...] Intake Visit Reasons: 2 WK S/P STEMI Unit Receptionist Required: No Is patient in pain?: No [...] (Resolved) Hyperlipidemia (Chronic) Atherosclerotic heart disease of [place] coronary artery without angina pectoris (Chronic) ST elevation [place] (STEMI) (Chronic 03/24/18) Hypertension (Chronic) Nicotine dependence (Chronic) HTN (hypertension) (Chronic) Surgical History Stented coronary artery (Chronic 03/24/18) Family History Unknown No problems noted. Social History Smoking Status: Current every day smoker alcohol intake: never ROS Const Const: Positive for other (Feels well. Had [place] and stent placement 03/24/18); negative for fatigue, [...] AND Plan 1. Atherosclerotic heart disease of [place] coronary artery without angina pectoris I25.10 STEMI,YAMILA of proximal LAD (2.5 X 24 [employer] Synergy) per Dr. Singh @ [facility] Plan 1. 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 Would recommend [employer]. In the meantime he will continue his [...] vis,est,level 3 Diagnoses Atherosclerotic heart disease of [place] coronary artery without angina pectoris I25.10 Hyperlipidemia E78.5 Nicotine dependence F17.200 Nicotine product type: cigarettes Coding Level of Care Code Off vis,est,level 3 Diagnoses Atherosclerotic heart disease of [place] coronary artery without angina pectoris I25.10 Hyperlipidemia E78.5 Nicotine dependence F17.200 Nicotine product type: cigarettes 04/12/18 1538 <Electronically signed by Dustin Singh MD> Date Dustin Singh MD Cosigner Signature: Date (if applicable) CC: Esa Sparrow MD 12 LEAD ELECTROCARDIOGRAM Observed: 03/30/2018 Status: F Source: [place] 2:10 PM [facility] HOSPITAL REPOSITORY [facility] Cardiovascular Services [address] [place] [address] 12 Lead EKG 03/27/18 0437 MR#: [id number] Acct: [id number] Name: MICHEAL DILLON Rep #: [id number] : 1965 52 From: Jac Schumacher MD [...] UNCONFIRMED Confirmed by JAC SCHUMACHER MD ([id number]), newspaper editor BRUCE ARMSTRONG ([id number]) on 03/30/2018 2:10:30 PM Referred By: Zayra Glaser Confirmed By:JAC SCHUMACHER MD 03/30/18 1410 Date Jac Schumacher MD CC: Mildred Glaser; Esa Sparrow MD; Dustin Singh MD; Ronald Palacios DO Signed 12 LEAD ELECTROCARDIOGRAM Observed: 03/30/2018 Status: F Source: [place] 9:25 AM [facility] REPOSITORY [facility] Cardiovascular Services [address] [place] [address] 12 Lead EKG 03/26/18 0522 MR#: [id number] Acct: [id number] Name: MICHEAL DILLON Rep #: [id number] : 1965 52 From: Jac Schumacher MD [...] UNCONFIRMED Confirmed by ENDY BATISTA, JAC ([id number]), newspaper editor BRUCE ARMSTRONG ([id number]) on 03/27/2018 4:11:28 PM Referred By: Zayra lGaser Confirmed By:JAC SCHUMACHER MD 03/27/18 1611 Date Jac Schumacher MD CC: Mildred Glaser; Esa Sparrow MD; Dustin Singh MD; Ronald Palacios DO Signed 12 LEAD ELECTROCARDIOGRAM Observed: 03/30/2018 Status: F Source: [place] 9:[address] [facility] Cardiovascular Services [address] [place] [address] 12 Lead EKG 03/25/182000 MR#: [id number] Acct: [id number] Name: MICHEAL DILLON Rep #: [id number] : 1965 52 From: Jac Schumacher MD [...] Abnormal ECG Confirmed by JAC SCHUMACHER MD ([id number]), newspaper editor BRUCE ARMSTRONG ([id number]) on 03/27/2018 4:12:49 PM Referred By: Zayra Glaser Confirmed By:JAC SCHUMACHER MD 03/27/18 1612 Date Jac Schumacher MD CC: Mildred Glaser; Esa Sparrow MD; Dustin Singh MD; Ronald Palacios DO Signed 12 LEAD ELECTROCARDIOGRAM Observed: 03/30/2018 Status: F Source: [place] 9:25 AM [facility] REPOSITORY [facility] Cardiovascular Services [address] [place] [address] 12 Lead EKG 03/24/18 1134 MR#: [id number] Acct: [id number] Name: MICHEAL DILLON Rep #: [id number] : 1965 52 From: Jac Schumacher MD [...] IS UNCONFIRMED Confirmed by JAC SCHUMACHER MD ([id number]), newspaper editor BRUCE ARMSTRONG ([id number]) on 03/27/2018 4:13:18 PM Referred By: Zayra Glaser Confirmed By:JAC SCHUMACHER MD 03/27/18 1613 Date Jac Schumacher MD CC: Mildred Glaser; Esa Sparrow MD; Dustin Singh MD; Ronald Palacios DO Signed 12 LEAD ELECTROCARDIOGRAM Observed: 03/30/2018 Status: F Source: [place] 9:25 AM [facility] REPOSITORY [facility] Cardiovascular Services [address] [place] [address] 12 Lead EKG 03/25/18 0422 MR#: [id number] Acct: [id number] Name: MICHEAL DILLON Rep #: [id number] : 1965 52 From: Jac Schumacher MD [...] UNCONFIRMED Confirmed by ENDY BATISTA, JAC ([id number]), newspaper editor BRUCE ARMSTRONG ([id number]) on 03/27/2018 4:13:32 PM Referred By: Zayra Glaser Confirmed By:JAC SCHUMACHER MD 03/27/18 1613 Date Jac Schumacher MD CC: Mildred Glaser; Esa Sparrow MD; Dustin Singh MD; Ronald Palacios DO Signed 12 LEAD ELECTROCARDIOGRAM Observed: 03/30/2018 Status: F Source: [place] 9:22 AM [facility] REPOSITORY [facility] Cardiovascular Services [address] [place] [address] 12 Lead EKG 03/24/18 0916 MR#: [id number] Acct: [id number] Name: MICHEAL DILLON Rep #: [id number] : 1965 52 From: Jac Schumacher MD [...] tachycardia Anteroseptal infarct , possibly acute ACUTE [place] / STEMI Abnormal ECG Confirmed by JAC SCHUMACHER MD ([id number]), newspaper editor BRUCE ARMSTRONG ([id number]) on 03/26/2018 1:51:46 PM Referred By: Zayra Glaser Confirmed By:JAC SCHUMACHER MD 03/26/18 1351 Date Jac Schumacher MD CC: Mildred Glaser; Esa Sparrow MD; Ronald Palacios DO; Lorenzo Arreola MD Signed 12 LEAD ELECTROCARDIOGRAM Observed: 03/30/2018 Status: F Source: [place] 9:20 AM [facility] REPOSITORY [facility] Cardiovascular Services [address] [place] [address] 12 Lead EKG 03/24/18 0910 MR#: [id number] Acct: [id number] Name: MICHEAL DILLON Rep #: [id number] : 1965 52 From: Jac Schumacher MD [...] ECG Confirmed by JAC SCHUMACHER MD ([id number]), newspaper editor BRUCE ARMSTRONG ([id number]) on 03/26/2018 9:32:14 AM Referred By: Zayra Glaser Confirmed By:JAC SCHUMACHER MD 03/26/18 0932 Date Jac Schumacher MD CC: Mildred Glaser; Esa Sparrow MD; Ronald Palacios DO; Lorenzo Arreola MD Signed DISCHARGE SUMMARY Observed: 03/29/2018 Status: F Source: [place] 3:14 PM [facility] REPOSITORY [facility] Medical Records Department [address] [place] [address] Discharge Summary 03/29/18 1505 MR#: [id number] Acct: [id number] Name: MICHEAL DILLON Rep #: [id number] : 1965 52 From: Ronald Palacios DO [...] (Last Updated 03/24/18 @ 08:57 by Tegan sAher) Hypertension (Chronic) Obesity (BMI 30.0-34.9) (Chronic) Nicotine dependence (Chronic) Cystic acne (Chronic) Hospital Course and Treatment Operations: None Procedures: 2-D Echocardiogram, Cardiac catheterization - With drug-eluting stent placement, - - Placement of intra-aortic balloon pump Summary of Care Provided: The patient is a 52 year old M who was seen in the emergency room at [facility] with a chief complaint of chest pain, [...] Iman at discharge?: Yes Done w/ Acute [place] measure.: Yes Code Visit Inpatient E AND M: 56763 Disch Hosp 03/29/18 1514 <Electronically signed by Ronald Palacios DO> Date Ronald Palacios DO Cosigner Signature (if applicable): Date CC: Esa Sparrow MD; Ronald Palacios DO Signed ECHO, COMPLETE W/ Observed: 03/28/2018 Status: F Source: [place] CONTRAST 8:51 AM [facility] REPOSITORY [facility] Cardiovascular Services [address] [place] [address] Echo Complete W/ Contrast 03/27/18 0841 MR#: [id number] Acct: [id number] Name: TONIMONICAMICHEAL A Rep #: [id number] : 1965 52 From: Dustin Singh MD [...] Dictated: 03/27/18 0841 Date Transcribed: 03/28/18 0850 Configuration Management Consultant: Signed DISCHARGE INSTRUCTION Observed: 03/27/2018 Status: F Source: [place] 4:58 PM [facility] REPOSITORY [facility] Medical Records Department [address] [place] [address] Instructions for Home/Discharge Instructions 03/27/18 1656 MR#: [id number] Acct: [id number] Name: MICHEAL DILLON Rep #: [id number] : 1965 52 From: Ronald Palacios DO PCP: Esa Sparrow MD Status: ADM IN - Discharge Diagnoses Current Active Problems: Current Active and Chronic Problems (Last Updated 03/24/18 @ 08:57 by Tegan Asher) ST elevation [place] (STEMI) (Acute) Hypertension (Chronic) Obesity (BMI 30.0-34.9) [...] Dustin Singh MD When: as directed 03/27/18 1366 <Electronically signed by Ronald Palacios DO> Date Ronald Palacios DO CC: Esa Sparrow MD; Jac Schumacher MD ACT ACTIVATED CLOTTING Collected: 03/26/2018 Status: F Source: [place] TIME 7:17 AM [facility] REPOSITORY TYPE CODE TESTS RESULT OUT OF RANGE REFERENCE UNITS LAB L9100.0100 74-137 sec Normal ACTk CLOT 131 TIME Performed By: #### L9100.0100 #### [facility] Laboratory Point of Care [address] [place], [place] [address] CBC-COMPLETE BLOOD CNT Collected: 03/26/2018 Status: F Source: [place] NO DIFF 3:05 AM [facility] REPOSITORY TYPE CODE TESTS RESULT OUT [...] MPV 9.8 Performed By: #### L100.0500 #### [facility] Laboratory [address] [place], [place], [address] BASIC METABOLIC Collected: 03/26/2018 Status: F Source: [place] PROFILE (BMP) 3:05 AM [facility] REPOSITORY TYPE CODE TESTS RESULT OUT [...] 11 Performed By: #### L500.2500, L501.5200 #### [facility] Laboratory [address] [place], [place], [address] MAGNESIUM Collected: 03/26/2018 Status: F Source: [place] 3:05 AM [facility] REPOSITORY TYPE CODE TESTS RESULT OUT OF RANGE REFERENCE UNITS LAB L501.5200 1.6-2.6 mg/dL Normal MG 2.1 Performed By: #### L500.2500, L501.5200 #### [facility] Laboratory [address] [place], [address] PARTIAL THROMBOPLAST Collected: 03/26/2018 Status: F Source: [place] TIME 3:05 AM [facility] REPOSITORY TYPE CODE TESTS RESULT OUT OF REFERENCE UNITS RANGE LAB L300.4310 24.1-36.2 Seconds High PTT 61.8 Performed By: #### L300.4310 #### [facility] Laboratory [address] [place], [address] CHEST 1 VIEW Observed: 03/26/2018 Status: F Source: [place] (PORTABLE) 12:00 AM [facility] REPOSITORY [facility] Imaging Services [address] [place] [address] Chest 1 View (Portable) MR#: [id number] Acct: [id number] Name: MICHEAL DILLON Rep #: [id number] : 1965 M 52 From: Omi Lemons PCP: Esa Sparrow MD Status: ADM IN Study: Chest 1 View (Portable) Date of Exam: 03/26/18 Exam# [id number] Ordering Dr: Dustin Singh MD STUDY: X-RAY [...] CC: Esa Sparrow MD; Dustin Singh MD Configuration Management Consultant: Signed PARTIAL THROMBOPLAST Collected: 03/25/2018 Status: F Source: [place] TIME 7:55 PM [facility] REPOSITORY TYPE CODE TESTS RESULT OUT OF REFERENCE UNITS RANGE LAB L300.4310 24.1-36.2 Seconds High PTT 45.5 Performed By: #### L300.4310 #### [facility] Laboratory [address] [place], [address] PARTIAL THROMBOPLAST Collected: 03/25/2018 Status: F Source: [place] TIME 1:30 PM [facility] REPOSITORY TYPE CODE TESTS RESULT OUT OF REFERENCE UNITS RANGE LAB L300.4310 24.1-36.2 Seconds High PTT 41.1 Performed By: #### L300.4310 #### [facility] Laboratory [address] [place], [address] PARTIAL THROMBOPLAST Collected: 03/25/2018 Status: F Source: [place] TIME 7:00 AM [facility] REPOSITORY TYPE CODE TESTS RESULT OUT OF REFERENCE UNITS RANGE LAB L300.4310 24.1-36.2 Seconds High PTT 41.9 Performed By: #### L300.4310 #### [facility] Laboratory [address] [place], [address] MAGNESIUM Collected: 03/25/2018 Status: F Source: [place] 7:00 AM [facility] REPOSITORY Order Comment: Comments: OK to run on the AM blood draw TYPE CODE TESTS RESULT OUT OF RANGE REFERENCE UNITS LAB L501.5200 1.6-2.6 mg/dL Normal MG 2.2 Performed By: #### L501.5200 #### [facility] Laboratory [address] [place], [address] CBC-COMPLETE BLOOD CNT Collected: 03/25/2018 Status: F Source: [place] NO DIFF 4:45 AM [facility] REPOSITORY TYPE CODE TESTS RESULT OUT [...] MPV 10.3 Performed By: #### L100.0500 #### [facility], [address] COMPREHENSIVE METABOLIC Collected: 03/25/2018 Status: F Source: [facility] 4:45 AM [facility] REPOSITORY TYPE CODE TESTS RESULT OUT [...] 9 Performed By: #### L500.4050, L500.4100 #### [facility] Laboratory [address] [place], [address] LIPID PROFILE Collected: 03/25/2018 Status: F Source: [place] 4:45 AM [facility] REPOSITORY TYPE CODE TESTS RESULT OUT [...] 40 Performed By: #### L500.4050, L500.4100 #### [facility] Laboratory [address] [place], [address] CHEST 1 VIEW Observed: 03/25/2018 Status: F Source: [place] (PORTABLE) 12:00 AM [facility] REPOSITORY [facility] Imaging Services [address] [place] [address] Chest 1 View (Portable) MR#: [id number] Acct: [id number] Name: MICHEAL DILLON Rep #: [id number] : 1965 M 52 From: Ema Hernandez MD PCP: Esa Sparrow MD Status: ADM IN Study: Chest 1 View (Portable) Date of Exam: 03/25/18 Exam# [id number] Ordering Dr: Dustin Singh MD STUDY: X-RAY [...] CC: Esa Sparrow MD; Dustin Singh MD Configuration Management Consultant: Signed PARTIAL THROMBOPLAST Collected: 03/24/2018 Status: F Source: [place] TIME 11:30 PM [facility] REPOSITORY TYPE CODE TESTS RESULT OUT OF RANGE REFERENCE UNITS LAB L300.4310 24.1-36.2 Seconds Normal PTT 33.9 Performed By: #### L300.4310 #### [facility] Laboratory [address] [place], [place], [address] TROPONIN-I Collected: 03/24/2018 Status: F Source: [place] 4:35 PM [facility] REPOSITORY Order Comment: 'TROP' Serial specimen #1, #2 or #3: 3 TYPE CODE TESTS RESULT OUT OF RANGE REFERENCE UNITS LAB L501.4010 <0.045 ng/mL High alert 20.400 TROPONIN-I Result Comment: CALLED [facility] ICU WITH CRITICAL CTNI BY [facility] 03-24-18 AT 1712PM READ BACK BY SAME TROPONIN-I EXPECTED VALUES <0.045 Negative 0.045 - 0.590 Consistent with Cardiac Damage > OR = 0.600 Critical Value Not every elevated troponin is indicative of [place]. These values should be used with clinical judgement in examining the patient's clinical picture for diagnosis. To establish a diagnosis of [place] versus myocardial injury, there must be a demonstrated rise and/or fall in the troponin values, in addition to ischemic symptoms, EKG changes, new regional wall motion abnormality, and/or angiographical evidence. PLEASE NOTE: REFERENCE RANGES EDITED 17 Performed By: #### L501.4010 #### [facility] Laboratory [address] [place], [place], [address] PARTIAL THROMBOPLAST Collected: 03/24/2018 Status: F Source: [place] TIME 4:35 PM [facility] REPOSITORY TYPE CODE TESTS RESULT OUT OF REFERENCE UNITS RANGE LAB L300.4310 24.1-36.2 Seconds High PTT 52.3 Performed By: #### L300.4310 #### [facility] Laboratory [address] [place], [place], [address] HISTORY AND PHYSICAL Observed: 03/24/2018 Status: F Source: [place] EXAM 4:03 PM [facility] REPOSITORY [facility] Medical Records Department [address] [place] [address] History and Physical 03/24/18 0957 MR#: [id number] Acct: [id number] Name: MICHEAL DILLON Rep #: [id number] : 1965 52 From: Zayra Glaser DO PCP: Esa Sparrow MD Status: ADM IN Y Location: ICU ICU07-1 Problem List (1) ST elevation [place] (STEMI) Status: Acute (2) Hypertension Status: Chronic [...] who presented to the emergency department at [facility] on 03/24/2018 complaining of substernal chest discomfort [...] and the patient was taken to the [facility] Operator. Past Medical History Past Medical History (Chronic [...] @ 08:57 by Tegan Asher) ST elevation [place] (STEMI) (Acute) - Physical Exam General: Alert, [...] @ 08:57 by Tegan Asher) ST elevation [place] (STEMI) (Acute) Chest pain (Acute) Impressions 1. STEMI 2. Hypertension 3. Nicotine dependence 4. Cystic acne Pt was escorted to the wharf labourer by myself and observed until Dr. Singh arrived. There was no ectopy. CP was relieved with 2 mg of MS. He had no SOB and the lungs were CTA. Admit to ICU following the procedure and further orders will be written at that time after the results of the cath are known. Code Visit Inpatient E AND M: 05842 Init Hosp L3 03/24/18 1603 <Electronically signed by Zayra Glaser DO> Date Zayra Glaser DO Cosigneduard Signature: Date (if applicable) CC: Mildred Glaser; Esa Sparrow MD Signed URGENT CARE VISIT Observed: 03/24/2018 Status: F Source: [place] REPORT 2:38 PM [facility] REPOSITORY [facility] [address] [place] [address] OFFICE VISIT Date of Service: 03/24/18 MR#: [id number] Acct: [id number] Name: MICHEAL DILLON Rep #: [id number] : 1965 Provider: VIAKSH Jang Age/Sex: 52/M Location[place] [facility] Status: Signed Intake Vital Signs03/24/18 Body Mass [...] would go directly from here to the [facility] where they could evaluate him and [...] Status: F Source: [place] TIME 10:37 AM [facility] REPOSITORY TYPE CODE TESTS RESULT OUT OF RANGE REFERENCE UNITS LAB L9100.0100 74-137 sec High ACTk CLOT 175 TIME Performed By: #### L9100.0100 #### [facility] Laboratory Point of Care [address] [place] [address] ACT ACTIVATED CLOTTING Collected: 03/24/2018 Status: F Source: [place] TIME 10:13 AM [facility] REPOSITORY TYPE CODE TESTS RESULT OUT OF RANGE REFERENCE UNITS LAB L9100.0100 74-137 sec High ACTk CLOT 147 TIME Performed By: #### L9100.0100 #### [facility] Laboratory Point of Care [address] [place] [address] EMERGENCY DEPARTMENT Observed: 03/24/2018 Status: F Source: [place] SUMMARY 9:30 AM [facility] REPOSITORY [facility] Medical Records Department [address] [place] [address] Emergency Department Summary 03/24/18 0926 MR#: [id number] Acct: [id number] Name: MICHEAL DILLON Rep #: [id number] : 1965 52 From: Lorenzo Arreola MD [...] and will manage this also. Admit to [facility] Operator Impression: Acute ST elevation myocardial infarction Critical care time 35 minutes This note was generated with [employer] dictation software. It may contain incorrect words, [...] your Primary Care Provider. Call [facility] ([phone]) or report to the closest Emergency Room. Call 911 if necessary. 03/24/18 8154 <Electronically signed by Lorenzo Arreola MD> Date Lorenzo Arreola MD Cosigner Signature (If Indicated): Date CC: Esa Sparrow MD CHEST 1 VIEW Observed: 03/24/2018 Status: F Source: [place] (PORTABLE) 9:21 AM [facility] REPOSITORY [facility] Imaging Services [address] [place] [address] Chest 1 View (Portable) MR#: [id number] Acct: [id number] Name: MICHEAL DILLON Rep #: [id number] : 1965 M 52 From: Hector Wall MD PCP: Esa Sparrow MD Status: REG ER Study: Chest 1 View (Portable) Date of Exam: 03/24/18 Exam# [id number] Ordering Dr: Lorenzo Arreola MD STUDY: X-RAY [...] CC: Esa Sparrow MD; Lorenzo Arreola MD Configuration Management Consultant: Signed PROTHROMBIN TIME W/INR Collected: 03/24/2018 Status: F Source: [place] 9:15 AM [facility] HOSPITAL REPOSITORY TYPE CODE TESTS RESULT OUT OF RANGE REFERENCE UNITS LAB L300.4150 11.7-14.9 SECONDS Normal PROTIME 12.5 LAB L300.4200 Normal INR 0.9 Performed By: #### L300.3900, L300.4310 #### [facility] Laboratory [address] [place], [address] PARTIAL THROMBOPLAST Collected: 03/24/2018 Status: F Source: [place] TIME 9:15 AM [facility] REPOSITORY TYPE CODE TESTS RESULT OUT OF REFERENCE UNITS RANGE LAB L300.4310 24.1-36.2 Seconds Low PTT 24.0 Performed By: #### L300.3900, L300.4310 #### [facility] Laboratory [address] [place], [address] CBC W/DIFF, AUTOMATED Collected: 03/24/2018 Status: F Source: [place] 9:15 AM [facility] REPOSITORY TYPE CODE TESTS RESULT OUT [...] Lymph 1.51 Performed By: #### L100.0100 #### [facility] Laboratory [address] [place], [address] BASIC METABOLIC Collected: 03/24/2018 Status: F Source: [place] PROFILE (BMP) 9:15 AM [facility] REPOSITORY TYPE CODE TESTS RESULT OUT [...] 11 Performed By: #### L500.2500, L501.4010 #### [facility] Laboratory [address] [place], [address] TROPONIN-I Collected: 03/24/2018 Status: F Source: [place] 9:15 AM [facility] REPOSITORY TYPE CODE TESTS RESULT OUT OF RANGE REFERENCE UNITS LAB L501.4010 <0.045 ng/mL High 0.252 TROPONIN-I Result Comment: TROPONIN-I EXPECTED VALUES <0.045 Negative 0.045 - 0.590 Consistent with Cardiac Damage > OR = 0.600 Critical Value Not every elevated troponin is indicative of [place]. These values should be used with clinical judgement in examining the patient's clinical picture for diagnosis. To establish a diagnosis of [place] versus myocardial injury, there must be a demonstrated rise and/or fall in the troponin values, in addition to ischemic symptoms, EKG changes, new regional wall motion abnormality, and/or angiographical evidence. PLEASE NOTE: REFERENCE RANGES EDITED 17 Performed By: #### L500.2500, L501.4010 #### [facility] Laboratory [address] [place], [address] HEMOGLOBIN A1C Collected: 03/24/2018 Status: F Source: [place] 9:15 AM [facility] REPOSITORY TYPE CODE TESTS RESULT OUT OF RANGE REFERENCE UNITS LAB L501.9985 4.2-6.3 % Normal HGB A1C 5.4 Performed By: #### L501.9985 #### [facility] Laboratory [address] [place], [address] ALLERGIES ALLERGIES DATE TYPE / CODE NAME / CODE REACTION SEVERITY SOURCE 05/15/2018 Drug bee venom Unknown Unknown [facility] Allergy/4160 protein ([facility] [address]127(SNOMED bee)/[id number] Repository CT) 5(RXNORM) ENCOUNTERS ENCOUNTERS ADMIT/DISCHARGE ACCOUNT ADMITTING ENCOUNTER LOCATION SOURCE NUMBER CLASS 05/18/2018 [id number] Ambulatory [facility] 8 [facility] ing:LAB Repository 05/15/2018/ [id number] Ambulatory BMSBuilding:B [facility] 8 [facility] Repository 05/11/2018/ [id number] Emergency [place] [address] 5 [facility] ing:ED Repository 05/04/2018/ [id number] Ambulatory BMSBuilding:B [place] 9 2 [facility] Repository 04/21/2018 [id number] Ambulatory B[facility]Building:B [place] 8 [facility] Repository 04/20/2018 [id number] Ambulatory BMSBuilding:W [place] 8 [facility] Repository 04/20/2018/ [id number] Ambulatory BMSBuilding:W [place] 8 7 [facility] Repository 04/20/2018/ [id number] Ambulatory [place] [facility] 8 9 [facility] ing:CLSPRoom: Repository [id number] 04/17/2018 [id number] Ambulatory BMSBuilding:B [place] 2 [facility] Repository 04/17/2018 [id number] Ambulatory [place] 7 [facility] ing:CVS Repository 04/17/2018 [id number] Ambulatory BMSBuilding:W [place] 7 [facility] Repository 04/16/2018 [id number] Ambulatory BMSBuilding:B [place] 3 [facility] Repository 04/16/2018 [id number] Ambulatory [place] 6 [facility] ing:CVS Repository 04/12/2018/ [id number] Ambulatory BMSBuilding:B [place] 8 2 [facility] Repository 03/24/2018 [id number] S[place]i, Ambulatory BMSBuilding:B [place] 5 [place].[facility] Repository 03/24/2018 [id number] [place], Ambulatory BMSBuilding:B [place] 2 [place] [facility] Repository 03/24/2018/ [id number] Ambulatory BMSBuilding:W [place] 8 3 [facility] Repository 03/24/2018/ [id number] Ambulatory BMSBuilding:W [place] 8 6 [facility] Repository 03/24/2018/ [id number] Sementi, Inpatient [place] [facility] 3 [place] Encounter [facility] ing:ICURoom: Repository IBF06Tgo: 1 03/24/2018 [id number] [place], Ambulatory BMSBuilding:B [place] 9 [place] [facility] Repository 03/24/2018 [id number] [place], Ambulatory BMSBuilding:B [place] 3 [place] [facility] Repository 03/24/2018 [id number] S[place]i, Ambulatory BMSBuilding:B [place] 7 [place] [facility] Repository 03/24/2018 [id number] S[place]i, Ambulatory BMSBuilding:B [place] 6 [place] [facility] Repository 03/24/2018/ [id number] Ambulatory BMSBuilding:B [place] 8 6 [facility] Repository PAYERS PAYERS ENCOUNTER GUARANTOR PAYER SUBSCRIBER SOURCE 05/18/2018 MICHEAL A Primary Insurance:[facility] MICHEAL A [place] [id number] [facility] [address] Number: Repository [address]Jsf: 330 [id number] [phone] () Date:1928-93-22RP [address] [address], [place] [address]SY: CHECK WEBSITE 05/18/2018 Secondary NOT GIVENUNK [place] Insurance:SELF PAY [facility] Number: Effective Repository Date:2018-05-18 05/15/2018 MICHEAL A Primary Insurance:[facility] MICHEAL A [place] [id number] [facility]: [address] Number: Repository [address]Agu: 330 [id number] [phone] () Date:7539-87-47MF [address] [address], [place] [address]JV: CHECK WEBSITE 05/15/2018 Secondary NOT GIVENUNK [place] Insurance:SELF PAY [facility] Number: Effective Repository Date:2018-05-15 05/11/2018 MICHEAL A Primary Insurance:[facility] MICHEAL A [place] [id number] [facility]: [address] Number: Repository [address]Zlb: 330 [id number] [phone] () Date:5574-41-14[address] [address]BS[place], [place] [address]ZS: CHECK WEBSITE 05/11/2018 Secondary NOT GIVENUNK [place] Insurance:SELF PAY [facility] Number: Effective Repository Date:2018-05-11 05/04/2018 MICHEAL A Primary Insurance:[facility] MICHEAL A [place] [id number] [facility] [address] Number: Repository [address]Tqw: 330 [id number] [phone] () Date:5870-81-36NU [address] [address], [place] [address]VE: CHECK WEBSITE 05/04/2018 Secondary NOT GIVENUNK [place] Insurance:SELF PAY [facility] Number: Effective Repository Date:2018-05-04 04/21/2018 MICHEAL A Primary Insurance:[facility] MICHEAL A [place] [id number] [facility] [address] Number: Repository [address]Vlj: 330 [id number] [phone] () Date:5933-20-74MT [address] [address], [place] [address]XP: CHECK WEBSITE 04/21/2018 Secondary NOT GIVENUNK [place] Insurance:SELF PAY [facility] Number: Effective Repository Date:2018-04-21 04/20/2018 MICHEAL A Primary Insurance:[facility] MICHEAL A [place] [id number] [facility] [address] Number: Repository [address]Ili: 330 [id number] [phone] () Date:3050-21-42IZ [address] [address]MCQF, [place] [address]DJ: CHECK WEBSITE 04/20/2018 Secondary NOT GIVENUNK [place] Insurance:SELF PAY [facility] Number: Effective Repository Date:2018-04-20 04/20/2018 MICHEAL A Primary Insurance:[facility] MICHEAL A [place] [id number] [facility]: [facility] [id number] Number: Repository [address]Itr: 330 [id number] [phone] () Date:4126-68-78DG [address] [address]HSTNNIMSV, [place] [address]KC: CHECK WEBSITE 04/20/2018 Secondary NOT GIVENUNK [place] Insurance:SELF PAY [facility] Number: Effective Repository Date:2018-04-20 04/20/2018 MICHEAL A Primary Insurance:[facility] MICHEAL A [place] [id number] [facility]: [facility] [id number] Number: Repository [address]Smv: 330 [id number] [phone] () Date:8725-98-31ZZ [address] [address]HPATZAGDX, [place] [address]GU: CHECK WEBSITE 04/20/2018 Secondary NOT GIVENUNK [place] Insurance:SELF PAY [facility] Number: Effective Repository Date:2018-04-18 04/17/2018 MICHEAL A Primary Insurance:[facility] MICHEAL A [place] [id number] [facility]: [address] Number: Repository [address]Fzs: 330 [id number] [phone] () Date:4177-99-14WW [address] [address]YJTLTXOQJ, [place] [address]HP: CHECK WEBSITE 04/17/2018 Secondary NOT GIVENUNK [place] Insurance:SELF PAY [facility] Number: Effective Repository Date:2018-04-17 04/17/2018 MICHEAL A Primary Insurance:[facility] MICHEAL A [place] [id number] [facility] [address] Number: Repository [address]Vlh: 330 [id number] [phone] () Date:4717-87-38JZ [address] [address]TUQUXRJVL, [place] [address]PX: CHECK WEBSITE 04/17/2018 Secondary NOT GIVENUNK [place] Insurance:SELF PAY [facility] Number: Effective Repository Date:2018-04-12 04/17/2018 MICHEAL A Primary Insurance:[facility] MICHEAL A [place] [id number] [facility]: [address] Number: Repository [address]Hrm: 330 [id number] [phone] () Date:2362-25-65IA [address] [address]LKSSYCKZO, [place] [address]EE: CHECK WEBSITE 04/17/2018 Secondary NOT GIVENUNK [place] Insurance:SELF PAY [facility] Number: Effective Repository Date:2018-04-17 04/16/2018 MICHEAL A Primary Insurance:[facility] MICHEAL A [place] [id number] [facility]: [address] Number: Repository [address]Ijv: 330 [id number] [phone] () Date:5941-57-31JU [address] [address]PLGHFQFTP, [place] [address]JB: CHECK WEBSITE 04/16/2018 Secondary NOT GIVENUNK [place] Insurance:SELF PAY [facility] Number: Effective Repository Date:2018-04-16 04/16/2018 MICHEAL A Primary Insurance:[facility] MICHEAL A [place] [id number] [facility] [address] Number: Repository [address]Zvd: 330 [id number] [phone] () Date:9251-95-86AC [address] [address]ITBZHMCVV, [place] [address]FS: CHECK WEBSITE 04/16/2018 Secondary NOT GIVENUNK [place] Insurance:SELF PAY [facility] Number: Effective Repository Date:2018-04-12 04/12/2018 MICHEAL A Primary Insurance:[facility] MICHEAL A [place] [id number] [facility]: [address] Number: Repository [address]Num: 330 [id number] [phone]) Date:2236-44-21HT [address] [address]YBEXLRCHI, [place] [address]LW: CHECK WEBSITE 04/12/2018 Secondary NOT GIVENUNK [place] Insurance:SELF PAY [facility] Number: Effective Repository Date:2018-04-12 03/24/2018 MICHEAL A Primary Insurance:[facility] MICHEAL A [place] [id number] [facility]: [facility] [id number] [place] Number: Repository [address]Pcw: 330 [id number] [phone] () Date:5644-21-08PO [address] [address]QOPETZASN, [place] [address]LS: CHECK WEBSITE 03/24/2018 Secondary NOT GIVENUNK [place] Insurance:SELF PAY [facility] Number: Effective Repository Date:2018-03-24 03/24/2018 MICHEAL A Primary Insurance:[facility] MICHEAL A [place] [id number] [facility] [address] Number: Repository [address]Ujy: 330 [id number] [phone] () Date:4042-31-48EF [address] [address]IDAPXOMLH, [place] [address]XG: CHECK WEBSITE 03/24/2018 Secondary NOT GIVENUNK [place] Insurance:SELF PAY [facility] Number: Effective Repository Date:2018-03-24 03/24/2018 MICHEAL A Primary Insurance:[facility] MICHEAL A [place] [id number] [facility]: [address] Number: Repository [address]Pwh: 330 [id number] [phone] () Date:3921-59-72ZP [address] [address]IBXUTOMFF, [place] [address]LP: CHECK WEBSITE 03/24/2018 Secondary NOT GIVENUNK [place] Insurance:SELF PAY [facility] Number: Effective Repository Date:2018-03-24 03/24/2018 MICHEAL A Primary Insurance:[facility] MICHEAL A [place] [id number] [facility]: [place] [address]-02-23[place] Number: Repository [address]Mpe: 330 [id number] [phone] () Date:6233-88-03GY [address] [address]OWZNHDTAJ, [place] [address]HG: CHECK WEBSITE 03/24/2018 Secondary NOT GIVENUNK [place] Insurance:SELF PAY [facility] Number: Effective Repository Date:2018-03-24 03/24/2018 MICHEAL A Primary Insurance:[facility] MICHEAL A [place] [id number] [facility]: [facility] [id number] [place], [place] Number: Repository [address]Bre: 330 [id number] [phone] () Date:3550-90-48RE [address] [address]XTPGMPETU, [place] [address]UV: CHECK WEBSITE 03/24/2018 Secondary NOT GIVENUNK [place] Insurance:SELF PAY [facility] Number: Effective Repository Date:2018-03-24 03/24/2018 MICHEAL A Primary Insurance:[facility] MICHEAL A [place] [id number] [facility] [id number] [place] Number: Repository [address]Vwc: 330 [id number] [phone] () Date:4141-87-99FQ [address] [address]SAVMURJQP, [place] [address]GE: CHECK WEBSITE 03/24/2018 Secondary NOT GIVENUNK [place] Insurance:SELF PAY [facility] Number: Effective Repository Date:2018-03-24 03/24/2018 MICHEAL A Primary Insurance:[facility] MICHEAL A [place] [id number] [facility] [id number] [place] Number: Repository [address]Ejj: 330 [id number] [phone] () Date:8639-26-75ZL [address] [address]CJVXZXFYP, [place] [address]TE: CHECK WEBSITE 03/24/2018 Secondary NOT GIVENUNK [place] Insurance:SELF PAY [facility] Number: Effective Repository Date:2018-03-24 03/24/2018 MICHEAL A Primary Insurance:[facility] MICHEAL [place] [id number] [facility]: [address] Number: Repository [address]Gim: 330 [id number] [phone] (HP) Date:8765-00-78TA [address] [address]FTRZQMIUD, [place] [address]WI: CHECK WEBSITE 03/24/2018 Secondary NOT GIVENUNK [place] Insurance:SELF PAY [facility] Number: Effective Repository Date:2018-03-24 03/24/2018 MICHEAL A Primary Insurance:[facility] MICHEAL A [place] [id number] [facility] [address] Number: Repository [address]Egt: 330 [id number] [phone] () Date:2963-48-67TB [address] [address]YUMKETZID, [place] [address]WW: CHECK WEBSITE 03/24/2018 Secondary NOT GIVENUNK [place] Insurance:SELF PAY [facility] Number: Effective Repository Date:2018-03-24 03/24/2018 MICHEAL Primary Insurance:[facility] MICHEAL [id number] [facility] [address] Number: Repository [address]Whp: 330 [id number] [phone] () Date:8622-13-30FD [address] [address]ZLYIRGYTP, [place] [address]EQ: CHECK WEBSITE 03/24/2018 Secondary NOT GIVENUNK [place] Insurance:SELF PAY [facility] Number: Effective Repository Date:2018-03-24
== END ==
PROVIDERS: Family Provider Family Medicine; PCP Family Medicine; Referring Provider Internal Medicine Cardiovascular Disease; Visit Provider Internal Medicine Cardiovascular Disease
DX: I25.10 Atherosclerotic heart disease of native coronary artery without angina pectoris (principal); E78.5 Hyperlipidemia, unspecified
CPT/HCPCS: 93017; 93350

== ENCOUNTER 2018-04-20 10:52 | Day surgery (SDC) | payer OTHER, SELFPAY ==
[2018-03-26 07:30] VITALS: BMI 29.5
[2018-04-12 15:06] VITALS: BMI 31.3
[2018-04-19 12:46] VITALS: BMI 31.3
[2018-04-20] VITALS (19 sets, daily range): BP systolic 139–169; BP diastolic 76–100; PULSE 60–71; RESP 15–23; TEMP 36.6–36.7; O2SAT 94–98; BMI 31.8
[2018-04-20 12:21] LABS: ACT Activated Clotting Time 175 sec (74-137)
--- NOTE | 2018-04-20 12:21 | CL.I_ITS ---
Patient Name: MICHEAL DILLON Study Date: 04/20/2018 Performing: Dustin Singh MD Ht: 68.5 inches 174 cm : 1965 Wt: 209.44 lbs 95 kg Age: 52 Gender: male BSA: 2.1 PROCEDURE(S) PERFORMED [id number] W OR WO PTCA, SINGLE CORONARY ARTERY CLINICAL PROFILE AND CO-MORBIDITIES Indications: Stable Known CAD Heart Failure: NYHA Class: 1, Newly Diagnosed: Yes, Heart Failure Type: Systolic Stress/Imaging Stress Echocardiogram: Yes Result: Positive Low Risk Stress Echocardiogram: Positi ve Low Risk Angina Classification Anginal Classification w/in 2 Weeks: No symptoms CAD Presentations: No Sxs, no angina. Comorbidities/Risk Factors: Current/Recent Smoker (< 1year) Hypertension Dyslipidemia Prior CHF Prior PCI CONCLUSIONS Successful PTCA/YAMILA mid LCX with a 2.5 x 20 Promus Synergy, post dilated proximally with a 3.5 x 8 NC Balloon; 75%-->0%, no dissection. 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 Singh Successful Mynx closure device. Medical management of OM disease. Repeat echo after cardiac rehab completed. DESCRIPTION OF PROCEDURE The patient arrived to the procedure lab. The risks and benefits of the procedure as well as a full d escription of our services here and current unavailability of surgical backup were fully explained to the patient and/or their significant other prior to the catheterization. The Timeout was completed, verifying the correct patient and procedure. The patient's procedural site was prepped and draped in the usual fashion. Local anesthetic was given subcutaneously to right groin region with Lidocaine 2%. Using a modified Seldinger technique, arterial access was obtained via the right femoral artery, a 6 Fr sheath was inserted.. EBU 3.75 Guide catheter was inserted and engaged into the LCA. BMW Capulin Guide wire was advan denise to the Circumflex. Angiogram performed of LCA. Synergy 2.5 x 20 Drug Eluting stent was inserted. Drug Eluting stent was advanced across the lesion in the circumflex, mid. Angiogram performed pre emir nt deployment. Angiogram performed pre stent deployment. NC Emerge 3.5 x 8 Balloon catheter was advan denise across lesion in the circumflex, mid. Angiogram performed post balloon dilatation. Angiogram perf ormed post balloon dilatation. Contrast was injected through the sheath and the Right Iliac and Femor al artery were assessed for possible closure device. The arterial sheath was pulled and a Mynx closur e device was deployed for hemostasis INTERVENTION INFORMATION LESION SITE: Circumflex (Mid) Lesion Complexity: High/C, lesion at bifurcation: No, thrombus present: No, lesion length: 20 mm, cul prit lesion: Yes Pre Stenosis: 75 % Pre intervention DONY flow: 3 PROCEDURE: Drug Eluting Stent with post dilatation Post Stenosis: 0 % Post intervention DONY flow: 3 Lesion Devices: [address] [employer] 6 Fr EBU3.75 100cm Guide Catheter Lovelace .014 BMW Capulin Straight 190cm Johnie Sci Synergy MR YAMILA 2.50x20 Johnie Sci NC EMERGE MR 3.50x08 BALLOON COMPLICATIONS No Complications PROCEDURE MEDICATIONS Fentanyl 50 mcg IV Oxygen: 2 L/min via nasal cannula Heparin 6000 unit(s) IV 04/20/2018 11:55:55 Nitro 200 mcg IC 04/20/2018 11:56:46 Nitro 200 mcg IC 04/20/2018 11:56:46 IV Bolus: .9 NaCl 250 ml total 04/20/2018 11:56:02 SUMMARY OF HEMODYNAMIC DATA Time AIR REST ECG 11:43:30 AO 162/89 (123) SA 11:56:19 Signed By Dustin Singh MD On 04/20/2018 12:20:04 PM Dustin Singh MD
[2018-04-20] MEDS: 0.9% Normal Saline 1,000 ML 150 ML IV (12:30)
--- NOTE | 2018-04-20 12:30 | NURSING ---
pt present in ICU 204 from clinical laboratory manager. clinical laboratory manager RN in attendance
--- NOTE | 2018-04-20 13:08 | CRPHASE1 ---
Patient Data/Charges Former Patient:: Phase I - SEEN PREVIOUSLY Risk Factors/Lifestyle Family History: Family History (Last Reviewed 04/12/18 @ 15:17 by Citlaly Pinto) Unknown No problems noted.
--- NOTE | 2018-04-20 13:09 | CRPH1.INSTRU ---
General Education CAD and cardiac anatomy and function:: Patient communicates acknowledgment - SEEN PREVIOUSLY
--- NOTE | 2018-04-20 15:08 | PCM.DC.CCA ---
Discharge Diet: Low fat/ Low Cholesterol Discharge Activity: Return to Normal Activity May shower in (days): 1 May resume sexual activity in: 1-2 weeks Lifting Restrictions: Do not lift anything greater than 10 pounds for 3 days Call your doctor if your incision/area has: Continuous Slow Oozing, Sudden Increased Bleeding, Increased Pain/ Swelling, Increased Redness, Foul Smelling Discharge, Swelling at the incision site Call your doctor if you observe: Fever of 101 or Higher, Shortness of breath, Chest pain Remove Dressing in (days):: 1 Cleanse incision/area with: Soap & Water Additional Instructions: You will continue with Aspirin and Brilinta therapy. You will remain on Brilinta for at least one year. If anyone asks you to stop this medication, please call the [facility] first at [phone]. You will see Phyllis, Physician Policy Checker, with the [facility] on 05/04/2018 at 1:00 PM. Cardiac rehab may contact you prior to your appointment, we will assess starting at your office visit. Allergies/Adverse Reactions: Allergies bee venom protein (honey bee) Allergy (Verified 04/12/18 15:18) Unknown Medications to take at Discharge Aspirin E.C. [Ecotrin] 81 mg PO DAILY@0800 tab 03/27/18 atorvastatin 80 mg tablet 80 mg PO QHS #90 tab 04/12/18 lisinopril 5 mg tablet 5 mg PO DAILY #90 tab 04/12/18 metoprolol tartrate 25 mg tablet 12.5 mg PO BID #90 tab 04/12/18 ticagrelor 90 mg tablet 90 mg PO BID #180 tab 04/12/18 Primary Care Physician: Patrick Sparrow MD [Primary Care Provider] - Test Results: Test results from this visit will be discussed in further detail at your follow-up appointment, if applicable. Please Follow Up With: Phyllis Escobar When: 05/04/2018 at 1:00 PM Proposed Discharge Date: 04/21/18 Cardiac Rehabilitation Info Cardiac Rehabilitation Program Information: Cardiac Rehabilitation is important for patients like you who are recovering from a heart problem. Cardiac rehabilitation programs are recognized as integral to the continued care of the patient with coronary heart disease. The cardiac rehabilitation program is designed to optimize a patient's physical, psychological, and social functioning. Health health careers instructor work in cardiac rehabilitation programs and assist you with getting the treatments you need to get stronger and healthier - like exercise, healthy eating habits, and medications. Cardiac rehabilitation has been show to help people with heart problems live longer and have better life enjoyment than people who do not go to cardiac rehabilitation. Please contact the Cardiac Rehabilitation Program at [facility] at in two weeks if you have not heard from them.
--- NOTE | 2018-04-20 15:13 | DCINST_ITS ---
Discharge Diet: Low fat/ Low Cholesterol Discharge Activity: Return to Normal Activity May shower in (days): 1 May resume sexual activity in: 1-2 weeks Lifting Restrictions: Do not lift anything greater than 10 pounds for 3 days Call your doctor if your incision/area has: Continuous Slow Oozing, Sudden Increased Bleeding, Increased Pain/ Swelling, Increased Redness, Foul Smelling Discharge, Swelling at the incision site Call your doctor if you observe: Fever of 101 or Higher, Shortness of breath, Chest pain Remove Dressing in (days):: 1 Cleanse incision/area with: Soap & Water Additional Instructions: You will continue with Aspirin and Brilinta therapy. You will remain on Brilinta for at least one year. If anyone asks you to stop this medication, please call the [facility] first at [phone]. You will see Phyllis, Physician [employer] Teacher, with the [facility] on 05/04/2018 at 1:00 PM. Cardiac rehab may contact you prior to your appointment, we will assess starting at your office visit. Allergies/Adverse Reactions: Allergies bee venom protein (honey bee) Allergy (Verified 04/12/18 15:18) Unknown Medications to take at Discharge Aspirin E.C. [Ecotrin] 81 mg PO DAILY@0800 tab 03/27/18 atorvastatin 80 mg tablet 80 mg PO QHS #90 tab 04/12/18 lisinopril 5 mg tablet 5 mg PO DAILY #90 tab 04/12/18 metoprolol tartrate 25 mg tablet 12.5 mg PO BID #90 tab 04/12/18 ticagrelor 90 mg tablet 90 mg PO BID #180 tab 04/12/18 Primary Care Physician: Patrick Sparrow MD [Primary Care Provider] - Test Results: Test results from this visit will be discussed in further detail at your follow- up appointment, if applicable. Please Follow Up With: Phyllis Escobar When: 05/04/2018 at 1:00 PM Proposed Discharge Date: 04/21/18 Cardiac Rehabilitation Info Cardiac Rehabilitation Program Information: Cardiac Rehabilitation is important for patients like you who are recovering from a heart problem. Cardiac rehabilitation programs are recognized as integral to the continued care of the patient with coronary heart disease. The cardiac rehabilitation program is designed to optimize a patient's physical, psychological, and social functioning. Health critical care educator work in cardiac rehabilitation programs and assist you with getting the treatments you need to get stronger and healthier - like exercise, healthy eating habits, and medications. Cardiac rehabilitation has been show to help people with heart problems live longer and have better life enjoyment than people who do not go to cardiac rehabilitation. Please contact the Cardiac Rehabilitation Program at [facility] at in two weeks if you have not heard from them.
[2018-04-20] MEDS: Metoprolol Tartrate 25 MG Tablet 12.5 MG PO (21:34)
[2018-04-20] MEDS: Atorvastatin Calcium 80 MG Tablet PO (21:35)
[2018-04-20] MEDS: TICAGRELOR 90 MG TABLET PO (21:35)
[2018-04-21] VITALS (11 sets, daily range): BP systolic 144–167; BP diastolic 80–92; PULSE 59–77; RESP 15–21; TEMP 36.7–36.8; O2SAT 92–96
[2018-04-21 05:31] LABS: Hematocrit 38.8 % (40-54); Hemoglobin 13.2 g/dl (13.0-16.5); Mean Corpuscular Hgb 29.9 pg (27.0-32.0); Mean Corpuscular Volume 87.8 fL (80-94); Mean Platelet Vol. 10.3 fl (6.2-12.0); Platelet Count 224 K/mm3 (150-450); RBC Distribution Width CV 13.5 % (11.6-14.6); RBC Distribution Width SD 43.9 fl (35.1-43.9); Red Blood Count 4.42 M/mm3 (4.6-6.2); White Blood Count 11.3 K/mm3 (4.4-11.0)
[2018-04-21 05:44] LABS: Scan Indicated on CBC? Y/N NO
[2018-04-21 06:07] LABS: Anion Gap 10 (5-15); BUN 11 mg/dL (7-18); BUN/Creat Ratio 11.1 RATIO (10-20); Calcium,Total 8.7 mg/dL (8.5-10.1); Chloride 109 mmol/L (98-107); Creatinine, Serum 0.99 mg/dL (0.70-1.30); EST Glomerular Filtration Rate 84 mL/min (>60); Est Glom Filt Rate - Afr Amer 102 mL/min (>60); Estimated Creatinine Clearance 87.28 ml/min; Glucose 85 mg/dL (74-106); Potassium 3.6 mmol/L (3.5-5.1); Sodium Level 141 mmol/L (136-145)
--- NOTE | 2018-04-21 09:42 | PN.CARD_ITS ---
Subjectve: Patient did very well overnight. No 24-hour events. No chest pain. Right groin is clean/dry/intact. EKG shows normal sinus rhythm with resolving a nterior wall myocardial infarction, no acute changes laterally. Hemoglobin and creatinine are within nominal limits. Telemetry negative. Objective: Vital Signs Temp Pulse Resp BP Pulse Ox 98.1 F 77 20 H 145/80 H 95 04/21/18 08:00 04/21/18 08:00 04/21/18 08:00 04/21/18 08:00 04/21/18 08:00 Oxygen Delivery Method Room Air Weight: 214 lb 15.211 oz Body Mass Index (BMI) 31.8 Intake and Output for Last 24 Hours 04/19/18 04/20/18 04/21/18 23:59 23:59 23:59 Intake Total 1789 / 1789 1412 / 1412 Balance 178 / 1788 1412 / 1412 General: Awake, Alert, Oriented x 3 HEENT: PERRL, EOMI, Sclera Non Icteric Neck: Supple, Good ROM, No Lymph Node Enlargement Lungs: Clear to auscultation Cardiovascular: Regular Rhythm, Normal S1, Normal S2, No Murmurs, No Rubs, No Gallops Vascular: No Carotid Bruits, Normal Femoral Pulses, Normal Radial Pulses, Normal Dorsalis Pedal Pulse, Normal Posterior Tibial Pulses Abdomen: Bowel Sounds Present, Soft, Non Tender, No HSM, No Organomegaly Extremities: No Cyanosis, No Clubbing, No edema Neurological: No Focal Motor or Sensory Deficit 04/21/18 05:20: WBC 11.3 H, RBC 4.42 L, Hgb 13.2, Hct 38.8 L, MCV 87.8, MCH 29.9, MCHC 34.0, RDW 13.5, RDW Differential 43.9, Plt Count 224, MPV 10.3 04/21/18 05:20: Sodium 141, Potassium 3.6, Chloride 109 H, Carbon Dioxide 22.0, Anion Gap 10, BUN 11, Creatinine 0.99, Est GFR (MDRD) Af Amer 102, Est GFR (MDRD) Non-Af 84, BUN/Creatinine Ratio 11.1, Glucose 85, Calcium 8.7 Rhythm: EKG: ECHO: Stress Test: Cardiac Cath: PCI: CT Surgery: Holter monitor: EPS: PPM: CXR: Chest CT Scan: Medical Necessity - Tobacco Use Smoking Status: Former smoker Assessment/Plan 1. Coronary artery disease: No anginal symptoms this morning. Right groin is clean/dry/intact. The patient is status post angioplasty and drug-eluting stenting to his mid left circumflex with an excellent result. 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 He will continue his antihypertensive medications as well. The patient will be enrolled in cardiac rehab in about 2 weeks time, followed by repeat echocardiogram at the conclusion of cardiac rehab to assess his anterior wall after his STEMI. 2. Hyperlipidemia: Continue statin based medications. 3. Patient may be discharged home and follow-up Dr. Singh going forward. Code Visit Inpatient E&M: 20551 Subs Hosp L2
== END 2018-04-21 08:40 | disposition home or self-care (01) ==
LOC: CLSP 10:53 → ICU 04-21 07:31
PROVIDERS: Family Provider Family Medicine; PCP Family Medicine; Referring Provider Internal Medicine Cardiovascular Disease; Visit Provider Internal Medicine Cardiovascular Disease
DX: I25.10 Atherosclerotic heart disease of native coronary artery without angina pectoris (principal); E78.5 Hyperlipidemia, unspecified; I10 Essential (primary) hypertension; I22.9 Subsequent ST elevation (STEMI) myocardial infarction of unspecified site; I21.4 Non-ST elevation (NSTEMI) myocardial infarction; F17.200 Nicotine dependence, unspecified, uncomplicated; Z79.82 Long term (current) use of aspirin; Z95.5 Presence of coronary angioplasty implant and graft
CPT/HCPCS: 80048; 85027; 85347; 92928; 93005; 99152; C1760; J7030; J7040; Q9967; C1725; C1769; C1874; C1887; C9600

== ENCOUNTER 2018-05-11 07:14 | Emergency (ER) | payer OTHER, SELFPAY ==
[2018-03-26 07:30] VITALS: BMI 29.5
[2018-05-04 13:06] VITALS: BMI 31.3
[2018-05-11 07:15] VITALS: BP 195/119; PULSE 85; RESP 18; TEMP 36.6; O2SAT 98; BMI 31.0
[2018-05-11 07:28] VITALS: BP 203/118; PULSE 88; RESP 19; O2SAT 98
--- NOTE | 2018-05-11 07:34 | EKG12_ITS ---
Test Reason : DIZZINESS Blood Pressure : / mmHG Vent. Rate : 086 BPM Atrial Rate : 086 BPM P-R Int : 158 ms QRS Dur : 104 ms QT Int : 382 ms P-R-T Axes : 047 -16 071 degrees QTc Int : 457 ms Sinus rhythm with occasional Premature ventricular complexes Otherwise normal ECG Confirmed by IRMA BATISTA, ELDON ([id number]), editor index ARJUN HERNANDEZ ([id number]) on 05/15/2018 4:59:40 PM Referred By: JARED Confirmed By:ELDON SOLIS MD
--- NOTE | 2018-05-11 07:43 | ED.VISSUMM ---
- ER Visit Summary Date of Service: 05/11/18 Chief Complaint: Lightheaded History of Present Illness: The patient is a 52 M presents for evaluation of lightheaded symptoms this morning. Symptoms worsen with standing, had symptoms in the shower. Mild nausea is resolved. There is no dizzy spinning. No chest pains or shortness of breath. No recent vomiting or diarrhea. Normal stools. Patient reported [place] this past March. He is followed by Dr. Singh. He is followed up a week ago in the office, complaint of fatigue with his metoprolol to the nurse practitioner. Reports he was called yesterday at home was told to stop his metoprolol yesterday. He states he did take last night's dose prior to the call. He did not take his metoprolol this morning. Prior to his [place] he was on blood pressure medicines this was changed after his [place]. States he does have white coat syndrome. Does not know his baseline blood pressure. He does report quitting tobacco. No urinary symptoms. Physical Examination: General: Alert and oriented ?3, no acute distress HEENT: Normocephalic, atraumatic. Moist mucosa membranes Neck: supple, nontender. Cardiovascular: Regular rate and rhythm, no murmurs Respiratory: Normal breath sounds, symmetric, no distress Abdomen: Soft, nontender, nondistended Extremities: Nontender, no edema, pulses intact ?4 Neuro: no focal neurological deficits. Test Results: EKG: Sinus rate of 86, no ST or T wave changes. PVC noted. Hemoglobin 14.3. Potassium 3.5. Creatinine 1.06. Emergency Department Course and Treatment: Patient had elevated blood pressure in triage 203/118. Heart rate is 86. EKG was sinus rhythm. Patient given gentle IV fluids, orthostatics was negative. He is mildly symptomatic with standing, upon lying states mild spinning. However that resolved. Labs are stable. Monitoring of blood pressure trended down without intervention last blood pressure was 150/90. I discussed with covering concrete batching plant operator Dr. Jenkins, discussed his medications, will increase his lisinopril to 10 mg daily. He will lemon picker a blood pressure cuff to check it in the morning and at night to keep a log. He will call Dr. Singh's office for follow-up. Patient was ambulated by myself with no difficulties. Treatment Plan: [] Disposition: Discharge Impression: 1. Near syncope 2. Elevated blood pressure This note was generated with [employer] dictation software. It may contain incorrect words, spelling, and punctuation that were not noted in review of the chart prior to signing ED Disposition - Plan for ED Patient: Disposition: Home or Assisted Living Chief Complaint: Dizziness Diagnosis: Near syncope, Elevated blood pressure reading with diagnosis of hypertension Instructions: ED Near Syncope Unkn Prescriptions: Lisinopril [Zestril] 10 mg PO DAILY #30 tablet Referrals: Patrick Sparrow MD [Primary Care Provider] - Dustin Singh MD [STAFF PHYSICIAN] - 5-7 Days Additional Instructions: Hold your 5 mg lisinopril at home. Start 10 mg dosing tomorrow. supervisor core shop blood pressure cuff, check your blood pressure in the morning and at night and keep a log. Call Dr. Singh's office for blood pressure readings and follow-up.
--- NOTE | 2018-05-11 07:48 | ED.DCSUM_ITS ---
- ER Visit Summary Date of Service: 05/11/18 Chief Complaint: Lightheaded History of Present Illness: The patient is a 52 M presents for evaluation of lightheaded symptoms this morning. Symptoms worsen with standing, had symptoms in the shower. Mild nausea is resolved. There is no dizzy spinning. No chest pains or shortness of breath. No recent vomiting or diarrhea. Normal stools. Patient reported [place] this past March. He is followed by Dr. Singh. He is followed up a week ago in the office, complaint of fatigue with his metoprolol to the nurse practitioner. Reports he was called yesterday at home was told to stop his metoprolol yesterday. He states he did take last night's dose prior to the call. He did not take his metoprolol this morning. Prior to his [place] he was on blood pressure medicines this was changed after his [place]. States he does have white coat syndrome. Does not know his baseline blood pressure. He does report quitting tobacco. No urinary symptoms. Physical Examination: General: Alert and oriented ?3, no acute distress HEENT: Normocephalic, atraumatic. Moist mucosa membranes Neck: supple, nontender. Cardiovascular: Regular rate and rhythm, no murmurs Respiratory: Normal breath sounds, symmetric, no distress Abdomen: Soft, nontender, nondistended Extremities: Nontender, no edema, pulses intact ?4 Neuro: no focal neurological deficits. Test Results: EKG: Sinus rate of 86, no ST or T wave changes. PVC noted. Hemog lobin 14.3. Potassium 3.5. Creatinine 1.06. Emergency Department Course and Treatment: Patient had elevated blood pressure in triage 203/118. Heart rate is 86. EKG was sinus rhythm. Patient given gentle IV fluids, orthostatics was negative. He is mildly symptomatic with standing, upon lying states mild spinning. However that resolved. Labs are sta ble. Monitoring of blood pressure trended down without intervention last blood pressure was 150/90. I discussed with covering manager field service Dr. Jenkins, discussed his medications, will increase his lisinopril to 10 mg daily. 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 He will call Dr. Singh's office for follow-up. Patient was ambulated by myself with no difficulties. Treatment Plan: [] Disposition: Discharge Impression: 1. Near syncope 2. Elevated blood pressure This note was generated with [employer] dictation software. It may contain incorrect words, spelling, and punctuation that were not noted in review of the chart prior to signing ED Disposition - Plan for ED Patient: Disposition: Home or Assisted Living Chief Complaint: Dizziness Diagnosis: Near syncope, Elevated blood pressure reading with diagnosis of hypertension Instructions: ED Near Syncope Unkn Prescriptions: Lisinopril [Zestril] 10 mg PO DAILY #30 tablet Referrals: Patrick Sparrow MD [Primary Care Provider] - Dustin Singh MD [STAFF PHYSICIAN] - 5-7 Days Additional Instructions: Hold your 5 mg lisinopril at home. Start 10 mg dosing tomorrow. 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 Call Dr. Singh's office for blood pressure readings and follow-up.
[2018-05-11 07:59] VITALS: BP 171/107; BP 189/108; BP 191/115; PULSE 76; PULSE 79; PULSE 87
[2018-05-11 08:03] LABS: Anion Gap 9 (5-15); BUN 15 mg/dL (7-18); BUN/Creat Ratio 14.2 RATIO (10-20); Calcium,Total 8.7 mg/dL (8.5-10.1); Chloride 108 mmol/L (98-107); Creatinine, Serum 1.06 mg/dL (0.70-1.30); EST Glomerular Filtration Rate 78 mL/min (>60); Est Glom Filt Rate - Afr Amer 94 mL/min (>60); Estimated Creatinine Clearance 81.52 ml/min; Glucose 168 mg/dL (74-106); Potassium 3.5 mmol/L (3.5-5.1); Sodium Level 139 mmol/L (136-145)
[2018-05-11 08:37] LABS: Absolute Lymphocyte Count 2.52 X10^3/ul (0.83-4.51); Absolute Neutrophil Count 5.8 X10^3/uL (2.0-7.7); Basophil# 0.04 X10^3/uL; Basophil% 0.4 % (0-1); Eosinophil# 0.29 X10^3/uL; Eosinophils% 3.1 % (0-5); Hematocrit 42.6 % (40-54); Hemoglobin 14.3 g/dl (13.0-16.5); Lymphocyte # 2.52 X10^3/ul (4.0); Lymphocyte % 27.2 % (19-41); Mean Corp Hgb Conc 33.6 g/gl (32-36); Mean Corpuscular Volume 89.5 fL (80-94); Mean Platelet Vol. 10.8 fl (6.2-12.0); Monocyte% 6.5 % (0-10); Neutrophil # 5.78 X10^3/uL (2.7-7.7); Neutrophil % 62.6 % (47-70); Platelet Count 276 K/mm3 (150-450); RBC Distribution Width CV 13.7 % (11.6-14.6); RBC Distribution Width SD 44.5 fl (35.1-43.9); Red Blood Count 4.76 M/mm3 (4.6-6.2); White Blood Count 9.3 K/mm3 (4.4-11.0)
[2018-05-11 08:43] LABS: POSITIVE COUNT NO; POSITIVE DIFFERENTIAL NO; POSITIVE MORPHOLOGY NO
[2018-05-11] MEDS: Lisinopril 5 MG Tablet PO (09:17)
[2018-05-11 09:18] VITALS: BP 161/106; PULSE 74; RESP 21; O2SAT 97
== END 2018-05-11 09:26 | disposition home or self-care (01) ==
PROVIDERS: Emergency Provider Emergency Medicine; Family Provider Family Medicine; PCP Family Medicine
DX: R55 Syncope and collapse (principal); R03.0 Elevated blood-pressure reading, without diagnosis of hypertension; E78.00 Pure hypercholesterolemia, unspecified; I25.2 Old myocardial infarction; Z87.891 Personal history of nicotine dependence
CPT/HCPCS: 80048; 85025; 93005; 96360; 99285; J7040; A4216

== ENCOUNTER → 2018-05-18 06:38 | Outpatient (CLI) | payer OTHER, SELFPAY ==
[2018-03-26 07:30] VITALS: BMI 29.5
[2018-05-15 15:43] VITALS: BMI 31.0
[2018-05-18 09:08] LABS: AST(SGOT) 19 U/L (15-37); Alanine Aminotransfer ALT/SGPT 52 U/L (16-61); Albumin, Serum 3.9 g/dL (3.2-5.0); Alkaline Phosphatase 52 U/L (45-117); Bilirubin, Direct 0.12 mg/dL (0.00-0.30); Cholesterol 115 mg/dL (200); Globulin 3.1 g/dL (2.2-4.2); High Density Lipoprotein 58 mg/dL; Triglycerides 78 mg/dL; Very Low Density Lipoprotein 16 mg/dL (5-40)
--- OUTSIDE RECORDS SUMMARY | 2018-07-22 14:03 | XMS RPT_ITS ---
:1965 Author Organization OHIP Support Name Relationship Address Phone SARINA WINCHESTER Unavailable [address] + [place] [address] [facility] Unavailable [address] + [place] [address] SARINA WINCHESTER Unavailable [address] + [place] [address] [facility] Unavailable [address] + [place] [address] SARINA WINCHESTER Unavailable [address] + [place] [address] [facility] Unavailable [address] + [place] [address] ZACARIAS WINCHESTERYL Unavailable [address] + [place] [address] [facility] Unavailable [address] + [place] [address] ZACARIAS WINCHESTERYL Unavailable [address] + [place] [address] [facility] Unavailable [address] + [place] [address] ZACARIAS WINCHESTERYL Unavailable [address] + [place] [address] [facility] Unavailable [address] + [place] [address] ZACARIAS WINCHESTERYL Unavailable [address] + [place] [address] [facility] Unavailable [address] + [place] [address] ZACARIAS WINCHESTERYL Unavailable [address] + [place] [address] [facility] Unavailable [address] + [place] [address] ANNABELLA, SARINA Unavailable [address] + [place] [address] [facility] Unavailable [address] + [place] [address] ANNABELLA, SARINA Unavailable [address] + [place] [address] [facility] Unavailable [address] + [place] [address] ANNABELLA, SARINA Unavailable [address] + [place] [address] [facility] Unavailable [address] + [place] [address] ANNABELLA, SARINA Unavailable [address] + [place] [address] [facility] Unavailable [address] + [place] [address] ANNABELLA, SARINA Unavailable [address] + [place] [address] [facility] Unavailable [address] + [place] [address] ANNABELLA, SARINA Unavailable [address] + [place] [address] [facility] Unavailable [address] + [place] [address] ANNABELLA, SARINA Unavailable [address] + [place] [address] [facility] Unavailable [address] + [place] [address] ANNABELLA, SARINA Unavailable [address] + [place] [address] [facility] Unavailable [address] + [place] [address] ANNABELLA, SARINA Unavailable [address] + [place] [address] [facility] Unavailable [address] + [place] [address] ANNABELLA, SARINA Unavailable [address] + [place] [address] [facility] Unavailable [address] + [place] [address] ANNABELLA, SARINA Unavailable [address] + [place] [address] [facility] Unavailable [address] + [place] [address] ANNABELLA, SARINA Unavailable [address] + [place] [address] [facility] Unavailable [address] + [place] [address] ANNABELLA, SARINA Unavailable [address] + [place] [address] [facility] Unavailable [address] + [place] [address] ANNABELLA, SARINA Unavailable [address] + [place] [address] [facility] Unavailable [address] + [place] [address] ANNABELLA, SARINA Unavailable [address] + [place] [address] [facility] Unavailable [address] + [place] [address] ANNABELLA, SARINA Unavailable [address] + [place] [address] [facility] Unavailable [address] + [place] [address] Care Team Providers Name Role Phone Dustin Singh Attending Unavailable Kyara Christaurelia Referring Unavailable Dustin Singh Attending Unavailable Dustin Singh Referring Unavailable Jac Schumacher Attending Unavailable Dustin Singh Referring Unavailable Dustin Singh Attending Unavailable Dustin Singh Referring [facility] Unavailable Dustin Singh Attending Unavailable Dustin Singh Referring [facility]available [facility] Unavailable Dustin Singh Attending Unavailable Dustin Singh Referring Unavailable [facility] Primary Care Unavailable Dustin Singh Consulting Unavailable Dustin Singh Attending Unavailable Dustin Singh Referring Unavailable [facility] Unavailable Dustin Singh Consulting Unavailable Dustin Singh Attending Unavailable Dustin Singh Referring Unavailable [facility] Unavailable Dustin Singh Attending Unavailable Dustin Singh Referring Unavailable [facility] Unavailable Dustin Singh Consulting Unavailable Phyllis Buchanan Attending [facility]available [facility] Referring Unavailable Francisco, Dustin Attending Unavailable Singh, Dustin Referring [facility] Unavailable Howie Wallace Attending Unavailable Francisco, Dustin Attending Unavailable Francisco, Dustin Referring Unavailable Singh, Dustin Attending Unavailable Francisco, Dustin Referring Unavailable BuchananPhyllis gresham Attending Unavailable Ranney, [facility] Referring Unavailable Francisco, Dustin Attending Unavailable Francisco, Dustin Referring Unavailable [facility] Primary Care Unavailable Margo Jang Attending Unavailable [place], [place] Referring Unavailable [facility] Unavailable Sementi, Mildred Admitting Unavailable Sementi, Mildred Referring Unavailable Endy, [place] Consulting Unavailable Tereletsky, Ronald Attending Unavailable Sementi, Mildred Admitting Unavailable Sementi, Mildred Attending Unavailable Sementi, Mildred Referring Unavailable [facility] Unavailable Sementi, Mildred Consulting Unavailable Sementi, Mildred Admitting Unavailable Sementi, Mildred Attending Unavailable Sementi, Mildred Referring Unavailable [facility] Unavailable Endy, [place] Consulting Unavailable Sementi, Mildred Consulting Unavailable Sementi, Mildred Admitting Unavailable Dustin Singh Attending Unavailable Sementi, Mildred Referring Unavailable [facility] Unavailable Endy, [place] Consulting Unavailable Sementi, Mildred Consulting Unavailable Sementi, Mildred Admitting Unavailable Koram, Ellie Zita Attending Unavailable Sementi, Mildred Referring Unavailable [facility] Unavailable Endy, [place] Consulting Unavailable Koram, Ellie Zita Consulting Unavailable Sementi, Mildred Admitting Unavailable Dustin Singh Attending Unavailable Sementi, Mildred Referring Unavailable [facility] Unavailable Endy, Jac Consulting Unavailable Tereletsky, Ronald Consulting Unavailable Sementi, Mildred Admitting Unavailable Tereletsky, Ronald Attending Unavailable Sementi, Mildred Referring Unavailable [facility] Unavailable Francisco, Dustin Consulting Unavailable Tereletsky, Ronald Consulting Unavailable PROBLEMS PROBLEMS DATE TYPE CONDITION / CODE ATTENDING STATUS SOURCE Unknown I25.10 - Atherosclerotic Dewayne, Active [place] 9 heart disease of [place] Phyllis Iverson [facility] coronary artery without Hospital angina pectoris / Repository I25.10(ICD-10) Unknown I10 - Essential (primary) Dewayne Active [place] 9 hypertension / Phyllis Iverson [facility] I10(ICD-10) Hospital Repository Unknown E78.00 - Pure Dewayne, Active [place] 9 hypercholesterolemia, Phyllis Iverson Community unspecified / Hospital E78.00(ICD-10) Repository Unknown E78.0 - Pure Dewayne, Active [place] 9 hypercholesterolemia / Phyllis Iverson [facility] E78.0(ICD-10) Hospital Repository Unknown R94.39 - Abnormal result Dustin Singh Active [place] 9 of other cardiovascular Community function study / Hospital R94.39(ICD-10) Repository Unknown R94.31 - Abnormal Singh Dustin Active [place] 9 electrocardiogram [ECG] [facility] [EKG] / R94.31(ICD-10) Hospital Repository Unknown E78.5 - Hyperlipidemia, Dustin Singh Active [place] 8 unspecified / Community E78.5(ICD-10) Hospital Repository Unknown F17.200 - Nicotine Dustin Singh Active [place] 8 dependence, unspecified, Community uncomplicated / Hospital F17.200(ICD-10) Repository Unknown I21.3 - ST elevation Endy, [place] Active [place] 8 (STEMI) myocardial Community infarction of unspecified Hospital site / I21.3(ICD-10) Repository Unknown F17.210 - Nicotine Endy, [place] Active [place] 8 dependence, cigarettes, Community uncomplicated / Hospital F17.210(ICD-10) Repository PROCEDURES PROCEDURES No Procedure Records FoundRESULTS RESULTS LIVER PROFILE Collected: 05/18/2018 Status: F Source: [place] 6:40 AM [facility] REPOSITORY TYPE CODE TESTS RESULT OUT [...] 0.12 Performed By: #### L500.3400, L500.4100 #### [facility] [address] [place], [address] LIPID PROFILE Collected: 05/18/2018 Status: F Source: [place] 6:40 AM [facility] REPOSITORY TYPE CODE TESTS RESULT [...] 16 Performed By: #### L500.3400, L500.4100 #### [facility] [address] [place], [address] CARDIOLOGY VISIT Observed: 05/16/2018 Status: F Source: [place] REPORT 2:29 PM [facility] REPOSITORY [facility] [address] [place] [address] OFFICE VISIT Date of Service: 05/15/18 MR#: [id number] Acct: [id number] Name: MICHEAL DILLON Rep #: [id number] : 1965 Provider: Phyllis Buchanan Age/Sex: 52/M [place] [facility] [place] Signed HPI HPI Chief Complaint: [...] 20. He was emergently brought to [facility] where he was found to have a [...] 31.7 Intake Visit Reasons: F/U, WAS IN [facility] ER - BP ISSUES Accompanied by: [...] (Resolved) Hyperlipidemia (Chronic) Atherosclerotic heart disease of [place] coronary artery without angina pectoris (Chronic) ST elevation NC (STEMI) (Chronic 03/24/18) Hypertension (Chronic) Nicotine dependence [...] affect Assessment AND Plan 1. Atherosclerosis of [place] coronary artery of [place] heart without angina pectoris I25.10 STEMI,YAMILA of proximal LAD (2.5 X 24 [employer]) per Dr. Singh @ [facility] Plan - VIKASH Medel Pt has [...] he was on Hyzaar prior to his NC. Patient Instructions - VIKASH Medel increase your [...] Code Off vis,est,level 4 Diagnoses Atherosclerosis of [place] coronary artery of [place] heart without angina pectoris I25.10 [place] vs. transplanted heart: [place] heart Essential hypertension I10 Hypertension type: essential hypertension Pure hypercholesterolemia E78.00 Hyperlipidemia type: pure hypercholesterolemia Coding Level of Care Code Off vis,est,level 4 Diagnoses Atherosclerosis of [place] coronary artery of [place] heart without angina pectoris I25.10 [place] vs. transplanted heart: [place] heart Essential hypertension I10 Hypertension type: essential [...] 05/16/18 1429<Electronically signed by Dustin Singh MD> [facility] Signature: Date (if applicable) Dustin Singh MD CC: Esa Sparrow MD 12 LEAD ELECTROCARDIOGRAM Observed: 05/15/2018 Status: F Source: [place] 4:59 PM [facility] REPOSITORY [facility] Cardiovascular Services [address] [facility] [place] [address] 12 Lead EKG 05/11/18 0725 MR#: [id number] Acct: [id number] Name: MICHEAL DILLON Rep #: [id number] : 1965 52 From: Jac Schumacher MD [...] ECG Confirmed by JAC SCHUMACHER MD ([id number]), proposal editor ARJUN HERNANDEZ ([id number]) on 05/15/2018 4:59:40 PM Referred By: JARED Confirmed By:JAC SCHUMACHER MD 05/15/18 1659 Date Jac Schumacher MD CC: Esa Sparrow MD; Howie Wallace Signed EMERGENCY DEPARTMENT Observed: 05/11/2018 Status: F Source: [place] SUMMARY 9:12 AM [facility] Records Department [address] [facility] [place] [address] Emergency Department Summary 05/11/18 0743 MR#: [id number] Acct: [id number] Name: MICHEAL DILLON Rep #: [id number] : 1965 52 From: Howie Painting PCP: [...] vomiting or diarrhea. Normal stools. Patient reported NC this past March. He is followed by [...] his metoprolol this morning. Prior to his NC he was on blood pressure medicines this was changed after his NC. States he does have white coat syndrome. [...] pressure was 150/90. I discussed with covering emergency veterinarian Dr. Jenkins, discussed his medications, will increase his lisinopril to 10 mg daily. He will tile picker a blood pressure cuff to check it in the morning and at night to keep a log. He will call Dr. Singh's office for follow-up. Patient was ambulated by myself with no difficulties. Treatment Plan: [] Disposition: Discharge Impression: 1. Near syncope 2. Elevated blood pressure This note was generated with [employer] dictation software. It may contain incorrect words, [...] at home. Start 10 mg dosing tomorrow. 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 Call Dr. Singh's office for blood pressure readings and follow-up. What to do if you have Problems For any increased pain, shortness of breath, bleeding, nausea or vomiting, chest pain, or any unexpected problems, contact your Primary Care Provider. Call [facility] ([phone]) or report to the closest Emergency Room. Call 911 if necessary. 05/11/18911 <Electronically signed by Howie Painting> Date Howie Painting Cosigner Signature (If Indicated): Date CC: Esa Sparrow MD BASIC METABOLIC Collected: 05/11/2018 Status: F Source: [place] PROFILE (BMP) 7:25 AM [facility] REPOSITORY TYPE CODE TESTS RESULT [...] GAP 9 Performed By: #### L500.2500 #### [facility] [address] [place], [place], [address] CBC W/DIFF, AUTOMATED Collected: 05/11/2018 Status: F Source: [place] 7:25 AM [facility] REPOSITORY TYPE CODE TESTS RESULT [...] Lymph 2.52 Performed By: #### L100.0100 #### [facility] [address] [place], [address] CARDIOLOGY VISIT Observed: 05/04/2018 Status: F Source: [place] REPORT 4:29 PM [facility] REPOSITORY [facility] [address] [place] [address] OFFICE VISIT Date of Service: 05/04/18 MR#: [id number] Acct: [id number] Name: MICHEAL DILLON Rep #: [id number] : 1965 Provider: Phyllis Buchanan Age/Sex: 52/M [...] 20. He was emergently brought to the [facility] where he was found to have a [...] that he does not sleep well at [facility] this is not new. He has successfully quit smoking, but finding it very difficult Intake Vital Signs05/04/18 Height 5 ft 9 in 05/04/18 Weight: 212 lb 05/04/18 Body Mass Index (BMI) 31.3 05/04/18 Blood Pressure 142/68 H 05/04/18 Blood Pressure Location Lt brachial Intake Visit Reasons: 2 WK S/P PCI Mice Raiser Required: No Accompanied by: none Is patient [...] (Resolved) Hyperlipidemia (Chronic) Atherosclerotic heart disease of [place] coronary artery without angina pectoris (Chronic) ST elevation NC (STEMI) (Chronic 03/24/18) Hypertension (Chronic) Nicotine dependence [...] affect Assessment AND Plan 1. Atherosclerosis of [place] coronary artery of [place] heart without angina pectoris I25.10 STEMI,YAMILA of proximal LAD (2.5 X 24 Prom[employer] Synergy) per Dr. Singh @ [facility] Plan Pt has not had any [...] Code Off vis,est,level 3 Diagnoses Atherosclerosis of [place] coronary artery of [place] heart without angina pectoris I25.10 [place] vs. transplanted heart: [place] heart Hypertension, unspecified type I10 Hypertension type: unspecified Pure hypercholesterolemia E78.00; E78.0 Hyperlipidemia type: pure hypercholesterolemia Coding Level of Care Code Off vis,est,level 3 Diagnoses Atherosclerosis of [place] coronary artery of [place] heart without angina pectoris I25.10 [place] vs. transplanted heart: [place] heart Hypertension, unspecified type I10 Hypertension type: [...] Diagnostics Echocardiogram 04/16/18 Stress Echocardiogram 04/17/18 05/04/18 5068 <Electronically signed by Phyllis SUH> Date Phyllis SUH [facility] Signature: Date (if applicable) CC: Esa Sparrow MD DISCHARGE INSTRUCTION Observed: 04/27/2018 Status: F Source: [place] 8:21 AM [facility] REPOSITORY [facility] Medical Records Department [address] [place] [address] Instructions for Home/Discharge Instructions 04/20/18 1508 MR#: [id number] Acct: [id number] Name: MICHEAL DILLON Rep #: [id number] : 1965 52 From: Calixto Liao [employer]IMING MIXTURE CARRIER-C PCP: Esa Sparrow MD Status: DEP [facility] Discharge Diet: Low fat/ Low Cholesterol Discharge [...] to stop this medication, please call the [facility] first at [phone]. You will see Phyllis Physician Enchilada Maker, with the [facility] on 05/04/2018 at 1:00 PM. [...] patient's physical, psychological, and social functioning. Health childcare attendant work in cardiac rehabilitation programs and assist you with getting the treatments you need to get stronger and healthier - like exercise, healthy eating habits, and medications. Cardiac rehabilitation has been show to help people with heart problems live longer and have better life enjoyment than people who do not go to cardiac rehabilitation. Please contact the Cardiac Rehabilitation Program at [facility] at in two weeks if you have not heard from them. 04/27/18 0821 <Electronically signed by Calixto VELAZCO> Date Calixto VELAZCO CC: Esa Sparrow MD Signed CBC-COMPLETE BLOOD CNT Collected: 04/21/2018 Status: F Source: [place] NO DIFF 5:20 AM [facility] REPOSITORY TYPE CODE TESTS RESULT [...] MPV 10.3 Performed By: #### L100.0500 #### [facility] [address] [place], [place], [address] BASIC METABOLIC Collected: 04/21/2018 Status: F Source: [place] PROFILE (BMP) 5:20 AM [facility] REPOSITORY TYPE CODE TESTS RESULT [...] GAP 10 Performed By: #### L500.2500 #### [facility] [address] [place], [place], [address] ACT ACTIVATED CLOTTING Collected: 04/20/2018 Status: F Source: [place] TIME 12:08 PM [facility] REPOSITORY TYPE CODE TESTS RESULT OUT OF RANGE REFERENCE UNITS LAB L9100.0100 74-137 sec High ACTk CLOT 175 TIME Performed By: #### L9100.0100 #### [facility] Point of Care [address] [place] [address] STRESS TEST ECHO W/O Observed: 04/18/2018 Status: F Source: [place] CONTRAST 2:03 PM [facility] REPOSITORY [facility] Cardiovascular Services [address] [place] [address] Stress Test Echo w/o Contrast MR#: [id number] Acct: [id number] Name: MICHEAL DILLON Rep #: [id number] : 1965 52 From: Dustin Singh MD [...] Dictated: 04/17/18 1048 Date Transcribed: 04/18/18 1403 Assistant Professor Of Dietetics: Signed ECHOCARDIOGRAM COMPLETE Observed: 04/17/2018 Status: F Source: [place] 4:08 PM [facility] REPOSITORY [facility] Cardiovascular Services [address] [place] [address] Echo Complete 04/16/18 1256 MR#: [id number] Acct: [id number] Name: MICHEAL DILLON Rep #: [id number] : 1965 52 From: Dustin Singh MD Attending Dr: Dustin Singh MD Status: REG CLI Ordering Dr: Dustin Singh MD Date: 04/16/18 Location: [facility] Sex: M C Admitted: Reason For Study: [...] Dictated: 04/16/18 1256 Date Transcribed: 04/17/18 1607 Assistant Professor Of Dietetics: Signed CARDIOLOGY VISIT Observed: 04/12/2018 Status: F Source: [place] REPORT 3:38 PM [facility] REPOSITORY [facility] [address] [place] [address] OFFICE VISIT Date of Service: 04/12/18 MR#: [id number] Acct: [id number] Name: MICHEAL DILLON Rep #: [id number] : 1965 Provider: Dustin Singh MD Age/Sex: 52/M [place] [facility] [place]: Signed HPI HPI Chief Complaint: [...] release. He was emergently brought to [facility] where he was found to have a [...] Intake Visit Reasons: 2 WK S/P STEMI Mice Raiser Required: No Is patient in pain?: No [...] (Resolved) Hyperlipidemia (Chronic) Atherosclerotic heart disease of [place] coronary artery without angina pectoris (Chronic) ST elevation NC (STEMI) (Chronic 03/24/18) Hypertension (Chronic) Nicotine dependence (Chronic) HTN (hypertension) (Chronic) Surgical History Stented coronary artery (Chronic 03/24/18) Family History Unknown No problems noted. Social History Smoking Status: Current every day smoker alcohol intake: never ROS Const Const: Positive for other (Feels well. Had NC and stent placement 03/24/18); negative for fatigue, [...] AND Plan 1. Atherosclerotic heart disease of [place] coronary artery without angina pectoris I25.10 STEMI,YAMILA of proximal LAD (2.5 X 24 Prom[employer] Synergy) per Dr. Singh @ [facility] Plan 1. Coronary artery disease: No [...] as he is an employee here at [employer]. Would recommend [employer]. In the meantime he will continue his [...] vis,est,level 3 Diagnoses Atherosclerotic heart disease of [place] coronary artery without angina pectoris I25.10 Hyperlipidemia E78.5 Nicotine dependence F17.200 Nicotine product type: cigarettes Coding Level of Care Code Off vis,est,level 3 Diagnoses Atherosclerotic heart disease of [place] coronary artery without angina pectoris I25.10 Hyperlipidemia E78.5 Nicotine dependence F17.200 Nicotine product type: cigarettes 04/12/18 1538 <Electronically signed by Dustin Singh MD> Date Dustin Singh MD Cosigner Signature: Date (if applicable) CC: Esa Sparrow MD 12 LEAD ELECTROCARDIOGRAM Observed: 03/30/2018 Status: F Source: [place] 2:10 PM [facility] REPOSITORY [facility] Cardiovascular Services [address] [address] 12 Lead EKG 03/27/18 0437 MR#: [id number] Acct: [id number] Name: MICHEAL DILLON Rep #: [id number] : 1965 52 From: Jac Schumacher MD [...] UNCONFIRMED Confirmed by JAC SCHUMACHER MD ([id number]), proposal editor BRUCE ARMSTRONG ([id number]) on 03/30/2018 2:10:30 PM Referred By: Zayra Glaser Confirmed By:JAC SCHUMACHER MD 03/30/18 1410 Date Jac Schumacher MD CC: Mildred Glaser; Esa Sparrow MD; Dustin Singh MD; Ronald Palacios DO Signed 12 LEAD ELECTROCARDIOGRAM Observed: 03/30/2018 Status: F Source: [place] 9:25 AM [facility] REPOSITORY [facility] Cardiovascular Services [address] [place] [address] 12 Lead EKG 03/26/18 0522 MR#: [id number] Acct: [id number] Name: MICHEAL DILLON Rep #: [id number] : 1965 52 From: Jac Schumacher MD [...] UNCONFIRMED Confirmed by ENDY BATISTA, JAC ([id number]), proposal editor BRUCE ARMSTRONG ([id number]) on 03/27/2018 4:11:28 PM Referred By: Zayra Glaser Confirmed By:JAC SCHUMACHER MD 03/27/18 1611 Date Jac Schumacher MD CC: Mildred Glaser; Esa Sparrow MD; Dustin Singh MD; Ronald Palacios DO Signed 12 LEAD ELECTROCARDIOGRAM Observed: 03/30/2018 Status: F Source: [place] 9:25 AM [facility] [address] [place] [address] 12 Lead EKG 03/25/182000 MR#: [id number] Acct: [id number] Name: MICHEAL DILLON Rep #: [id number] : 1965 52 From: Jac Schumacher MD [...] Abnormal ECG Confirmed by JAC SCHUMACHER MD ([id number]), proposal editor BRUCE ARMSTRONG ([id number]) on 03/27/2018 4:12:49 PM Referred By: Zayra Glaser Confirmed By:JAC SCHUMACHER MD 03/27/18 1612 Date Jac Schumacher MD CC: Mildred Glaser; Esa Sparrow MD; Dustin Singh MD; Ronald Palacios DO Signed 12 LEAD ELECTROCARDIOGRAM Observed: 03/30/2018 Status: F Source: [place] 9:25 AM [facility] REPOSITORY [facility] Cardiovascular Services [address] [place] [address] 12 Lead EKG 03/24/18 1134 MR#: [id number] Acct: [id number] Name: MICHEAL DILLON Rep #: [id number] : 1965 52 From: Jac Schumacher MD [...] IS UNCONFIRMED Confirmed by JAC SCHUMACHER MD ([id number]), proposal editor BRUCE ARMSTRONG ([id number]) on 03/27/2018 4:13:18 PM Referred By: aZyra Glaser Confirmed By:JAC SCHUMACHER MD 03/27/18 1613 Date Jac Schumacher MD CC: Mildred Glaser; Esa Sparrow MD; Dustin Singh MD; Ronald Palacios DO Signed 12 LEAD ELECTROCARDIOGRAM Observed: 03/30/2018 Status: F Source: [place] 9:25 AM [facility] REPOSITORY [facility] Cardiovascular Services [address] [place] [address] 12 Lead EKG 03/25/18 0422 MR#: [id number] Acct: [id number] Name: MICHEAL DILLON Rep #: [id number] : 1965 52 From: Jac Schumacher MD [...] UNCONFIRMED Confirmed by ENDY BATISTA, JAC ([id number]), proposal editor BRUCE ARMSTRONG ([id number]) on 03/27/2018 4:13:32 PM Referred By: Zayra Glaser Confirmed By:JAC SCHUMACHER MD 03/27/18 1613 Date Jac Schumacher MD CC: Mildred Glaser; Esa Sparrow MD; Dustin Singh MD; Ronald Palacios DO Signed 12 LEAD ELECTROCARDIOGRAM Observed: 03/30/2018 Status: F Source: CHIARA 9:22 AM [facility] REPOSITORY [facility] Cardiovascular Services [address] [place] [address] 12 Lead EKG 03/24/18 0916 MR#: [id number] Acct: [id number] Name: MICHEAL DILLON Rep #: [id number] : 1965 52 From: Jac Schumacher MD [...] tachycardia Anteroseptal infarct , possibly acute ACUTE NC / STEMI Abnormal ECG Confirmed by JAC SCHUMACHER MD ([id number]), proposal editor BRUCE ARMSTRONG ([id number]) on 03/26/2018 1:51:46 PM Referred By: Zayra Glaser Confirmed By:JAC SCHUMACHER MD 03/26/18 1351 Date Jac Schumacher MD CC: Mildred Glaser; Esa Sparrow MD; Ronald Palaciso DO; Lorenzo Arreola MD Signed 12 LEAD ELECTROCARDIOGRAM Observed: 03/30/2018 Status: F Source: BOZ[place] 9:20 AM [facility] REPOSITORY [facility] Cardiovascular Services [address] [place] [address] 12 Lead EKG 03/24/18 0910 MR#: [id number] Acct: [id number] Name: MICHEAL DILLON Rep #: [id number] : 1965 52 From: Jac Schumacher MD [...] ECG Confirmed by JAC SCHUMACHER MD ([id number]), proposal editor BRUCE ARMSTRONG ([id number]) on 03/26/2018 9:32:14 AM Referred By: Zayra Glaser Confirmed By:JAC SCHUMACHER MD 03/26/18 0932 Date Jac Schumacher MD CC: Mildred Glaser; Esa Sparrow MD; Ronald Palacios DO; Lorenzo Arreola MD Signed DISCHARGE SUMMARY Observed: 03/29/2018 Status: F Source: [place] 3:14 PM [facility] REPOSITORY [facility] Medical Records Department [address] [place] [address] Discharge Summary 03/29/18 1505 MR#: [id number] Acct: [id number] Name: MICHEAL DILLON Rep #: [id number] : 1965 52 From: Ronald Palacios DO [...] was seen in the emergency room at [facility] with a chief complaint of chest [...] Iman at discharge?: Yes Done w/ Acute NC measure.: Yes Code Visit Inpatient E AND M: 21594 Disch Hosp 03/29/18 1514 <Electronically signed by Ronald Palacios DO> Date Ronald Palacios DO Cosigner Signature (if applicable): Date CC: Esa Sparrow MD; Ronald Palacios DO Signed ECHO, COMPLETE W/ Observed: 03/28/2018 Status: F Source: CHIARA CONTRAST 8:51 AM [facility] REPOSITORY [facility] Cardiovascular Services [address] [place] [address] Echo Complete W/ Contrast 03/27/18 0841 MR#: [id number] Acct: [id number] Name: TONIMONICAMICHEAL A Rep #: [id number] : 1965 52 From: Dustin Singh MD [...] max hoang: 61.6 cm/sec Med Peak E' Haong: 7.5 cm/sec MV V2 max: 112.7 cm/sec [...] Dictated: 03/27/18 0841 Date Transcribed: 03/28/18 0850 Assistant Professor Of Dietetics: Signed DISCHARGE INSTRUCTION Observed: 03/27/2018 Status: F Source: CHIARA 4:58 PM [facility] REPOSITORY [facility] Medical Records Department [address] [place] [address] Instructions for Home/Discharge Instructions 03/27/18 1656 MR#: [id number] Acct: [id number] Name: MICHEAL DILLON Rep #: [id number] : 1965 52 From: Ronald Palacios DO PCP: Esa Sparrow MD Status: ADM IN - Discharge Diagnoses Current Active Problems: Current Active and Chronic Problems (Last Updated 03/24/18 @ 08:57 by Tegan Asher) ST elevation NC (STEMI) (Acute) Hypertension (Chronic) Obesity (BMI 30.0-34.9) [...] Dustin Singh MD When: as directed 03/27/18 6560 <Electronically signed by Ronald Palacios DO> Date Ronald Palacios DO CC: Esa Sparrow MD; Jac Schumacher MD ACT ACTIVATED CLOTTING Collected: 03/26/2018 Status: F Source: [place]IARA TIME 7:17 AM [facility] REPOSITORY TYPE CODE TESTS RESULT OUT OF RANGE REFERENCE UNITS LAB L9100.0100 74-137 sec Normal ACTk CLOT 131 TIME Performed By: #### L9100.0100 #### [facility] Point of Care [address] [place], [place] [address] CBC-COMPLETE BLOOD CNT Collected: 03/26/2018 Status: F Source: [place] NO DIFF 3:05 AM [facility] REPOSITORY TYPE CODE TESTS RESULT [...] MPV 9.8 Performed By: #### L100.0500 #### [facility] [address] [place], [place], [address] BASIC METABOLIC Collected: 03/26/2018 Status: F Source: [place] PROFILE (BMP) 3:05 AM [facility] REPOSITORY TYPE CODE TESTS RESULT [...] 11 Performed By: #### L500.2500, L501.5200 #### [facility] [address] [place], [place], [address] MAGNESIUM Collected: 03/26/2018 Status: F Source: [place]IARA 3:05 AM [facility] REPOSITORY TYPE CODE TESTS RESULT OUT OF RANGE REFERENCE UNITS LAB L501.5200 1.6-2.6 mg/dL Normal MG 2.1 Performed By: #### L500.2500, L501.5200 #### [facility] [address] [place], [address] PARTIAL THROMBOPLAST Collected: 03/26/2018 Status: F Source: [place] TIME 3:05 AM [facility] REPOSITORY TYPE CODE TESTS RESULT OUT OF REFERENCE UNITS RANGE LAB L300.4310 24.1-36.2 Seconds High PTT 61.8 Performed By: #### L300.4310 #### [facility] [address] [place], [address] CHEST 1 VIEW Observed: 03/26/2018 Status: F Source: CHIARA (PORTABLE) 12:00 AM [facility] REPOSITORY [facility] Imaging Services [address] [place] [address] Chest 1 View (Portable) MR#: [id number] Acct: [id number] Name: MICHEAL DILLON Rep #: [id number] : 1965 M 52 From: Omi Lemons PCP: Esa Sparrow MD Status: ADM IN Study: Chest 1 View (Portable) Date of Exam: 03/26/18 Exam# [id number] Ordering Dr: Dustin Singh MD STUDY: X-RAY [...] CC: Esa Sparrow MD; Dustin Singh MD Assistant Professor Of Dietetics: Signed PARTIAL THROMBOPLAST Collected: 03/25/2018 Status: F Source: [place] TIME 7:55 PM [facility] REPOSITORY TYPE CODE TESTS RESULT OUT OF REFERENCE UNITS RANGE LAB L300.4310 24.1-36.2 Seconds High PTT 45.5 Performed By: #### L300.4310 #### [facility] [address] [place], [address] PARTIAL THROMBOPLAST Collected: 03/25/2018 Status: F Source: [place] TIME 1:30 PM [facility] REPOSITORY TYPE CODE TESTS RESULT OUT OF REFERENCE UNITS RANGE LAB L300.4310 24.1-36.2 Seconds High PTT 41.1 Performed By: #### L300.4310 #### [facility] [address] [place], [address] PARTIAL THROMBOPLAST Collected: 03/25/2018 Status: F Source: [place] TIME 7:00 AM [facility] REPOSITORY TYPE CODE TESTS RESULT OUT OF REFERENCE UNITS RANGE LAB L300.4310 24.1-36.2 Seconds High PTT 41.9 Performed By: #### L300.4310 #### [facility] [address] [place], [address] MAGNESIUM Collected: 03/25/2018 Status: F Source: CHIARA 7:00 AM [facility] REPOSITORY Order Comment: Comments: OK to run on the AM blood draw TYPE CODE TESTS RESULT OUT OF RANGE REFERENCE UNITS LAB L501.5200 1.6-2.6 mg/dL Normal MG 2.2 Performed By: #### L501.5200 #### [facility] [address] [place], [address] CBC-COMPLETE BLOOD CNT Collected: 03/25/2018 Status: F Source: CHIARA NO DIFF 4:45 AM [facility] REPOSITORY TYPE CODE TESTS RESULT [...] MPV 10.3 Performed By: #### L100.0500 #### [facility] [place], [address] COMPREHENSIVE METABOLIC Collected: 03/25/2018 Status: F Source: [facility] 4:45 AM [facility] REPOSITORY TYPE CODE TESTS RESULT [...] 9 Performed By: #### L500.4050, L500.4100 #### [facility] [address] [place], [address] LIPID PROFILE Collected: 03/25/2018 Status: F Source: [place] 4:45 AM [facility] REPOSITORY TYPE CODE TESTS RESULT [...] 40 Performed By: #### L500.4050, L500.4100 #### [facility] [address] [place], [address] CHEST 1 VIEW Observed: 03/25/2018 Status: F Source: [place] (PORTABLE) 12:00 AM [facility] REPOSITORY [facility] Imaging Services [address] [place] [address] Chest 1 View (Portable) MR#: [id number] Acct: [id number] Name: MICHEAL DILLON Rep #: [id number] : 1965 M 52 From: Ema Hernandez MD PCP: Esa Sparrow MD Status: ADM IN Study: Chest 1 View (Portable) Date of Exam: 03/25/18 Exam# [id number] Ordering Dr: Dustin Singh MD STUDY: X-RAY [...] CC: Esa Sparrow MD; Dustin Singh MD Assistant Professor Of Dietetics: Signed PARTIAL THROMBOPLAST Collected: 03/24/2018 Status: F Source: [place] TIME 11:30 PM [facility] REPOSITORY TYPE CODE TESTS RESULT OUT OF RANGE REFERENCE UNITS LAB L300.4310 24.1-36.2 Seconds Normal PTT 33.9 Performed By: #### L300.4310 #### [facility] [address] [place], [place], [address] TROPONIN-I Collected: 03/24/2018 Status: F Source: CHIARA 4:35 PM [facility] REPOSITORY Order Comment: 'TROP' Serial specimen #1, #2 or #3: 3 TYPE CODE TESTS RESULT OUT OF RANGE REFERENCE UNITS LAB L501.4010 <0.045 ng/mL High alert 20.400 TROPONIN-I Result Comment: CALLED [facility] WITH CRITICAL CTNI BY [facility] 03-24-18 AT 1712PM READ BACK BY SAME TROPONIN-I EXPECTED VALUES <0.045 Negative 0.045 - 0.590 Consistent with Cardiac Damage > OR = 0.600 Critical Value Not every elevated troponin is indicative of NC. These values should be used with clinical judgement in examining the patient's clinical picture for diagnosis. To establish a diagnosis of NC versus myocardial injury, there must be a demonstrated rise and/or fall in the troponin values, in addition to ischemic symptoms, EKG changes, new regional wall motion abnormality, and/or angiographical evidence. PLEASE NOTE: REFERENCE RANGES EDITED 17 Performed By: #### L501.4010 #### [facility] [address] [place], [place], [address] PARTIAL THROMBOPLAST Collected: 03/24/2018 Status: F Source: [place]IARA TIME 4:35 PM [facility] REPOSITORY TYPE CODE TESTS RESULT OUT OF REFERENCE UNITS RANGE LAB L300.4310 24.1-36.2 Seconds High PTT 52.3 Performed By: #### L300.4310 #### [facility] [address] [place], [place], [address] HISTORY AND PHYSICAL Observed: 03/24/2018 Status: F Source: CHIARA EXAM 4:03 PM [facility] REPOSITORY [facility] Medical Records Department [address] [place] [address] History and Physical 03/24/18 0957 MR#: [id number] Acct: [id number] Name: MICHEAL DILLON Rep #: [id number] : 1965 52 From: Zayra Glaser DO PCP: Esa Sparrow MD Status: ADM IN Y Location: ICU ICU07-1 Problem List (1) ST elevation NC (STEMI) Status: Acute (2) Hypertension Status: Chronic [...] who presented to the emergency department at [facility] on 03/24/2018 complaining of substernal chest [...] and the patient was taken to the [facility]. Past Medical History Past Medical History (Chronic [...] @ 08:57 by Tegan Asher) ST elevation NC (STEMI) (Acute) - Physical Exam General: Alert, [...] @ 08:57 by Tegan Asher) ST elevation NC (STEMI) (Acute) Chest pain (Acute) Impressions 1. STEMI 2. Hypertension 3. Nicotine dependence 4. Cystic acne Pt was escorted to the radiographer cardiac catheterization by myself and observed until Dr. Singh arrived. There was no ectopy. CP was relieved with 2 mg of MS. He had no SOB and the lungs were CTA. Admit to ICU following the procedure and further orders will be written at that time after the results of the cath are known. Code Visit Inpatient E AND M: 94332 Init Hosp L3 03/24/18 1603 <Electronically signed by Zayra Glaser DO> Date Zayra Glaser DO Cosigneduard Signature: Date (if applicable) CC: Mildred Glaser; Esa Sparrow MD Signed URGENT CARE VISIT Observed: 03/24/2018 Status: F Source: CHIARA REPORT 2:38 PM [facility] REPOSITORY [facility] [address] [place] [address] OFFICE VISIT Date of Service: 03/24/18 MR#: [id number] Acct: [id number] Name: MICHEAL DILLON Rep #: [id number] : 1965 Provider: VIKASH Jang Age/Sex: 52/M Location: [facility] [place] [place] Status: Signed Intake Vital Signs03/24/18 Body Mass [...] would go directly from here to the [facility] where they could evaluate him and [...] Status: F Source: CHIARA TIME 10:37 AM [facility] REPOSITORY TYPE CODE TESTS RESULT OUT OF RANGE REFERENCE UNITS LAB L9100.0100 74-137 sec High ACTk CLOT 175 TIME Performed By: #### L9100.0100 #### [facility] Point of Care [address] [place] [address] ACT ACTIVATED CLOTTING Collected: 03/24/2018 Status: F Source: CHIARA TIME 10:13 AM [facility] REPOSITORY TYPE CODE TESTS RESULT OUT OF RANGE REFERENCE UNITS LAB L9100.0100 74-137 sec High ACTk CLOT 147 TIME Performed By: #### L9100.0100 #### [facility] Point of Care [address] [place] [address] EMERGENCY DEPARTMENT Observed: 03/24/2018 Status: F Source: CHIARA SUMMARY 9:30 AM [facility] REPOSITORY [facility] Medical Records Department [address] [place] [address] Emergency Department Summary 03/24/18 0926 MR#: [id number] Acct: [id number] Name: MICHEAL DILLON Rep #: [id number] : 1965 52 From: Lorenzo Arreola MD [...] and will manage this also. Admit to [facility] Impression: Acute ST elevation myocardial infarction Critical care time 35 minutes This note was generated with [employer] dictation software. It may contain incorrect words, [...] your Primary Care Provider. Call [facility] ([phone]) or report to the closest Emergency Room. Call 911 if necessary. 03/24/18 7682 <Electronically signed by Lorenzo Arreola MD> Date Lorenzo Arreola MD Cosigner Signature (If Indicated): Date CC: Esa Sparrow MD CHEST 1 VIEW Observed: 03/24/2018 Status: F Source: CHIARA (PORTABLE) 9:21 AM [facility] REPOSITORY [facility] Imaging Services [address] [place] [address] Chest 1 View (Portable) MR#: [id number] Acct: [id number] Name: MICHEAL DILLON Rep #: [id number] : 1965 M 52 From: Hector Wall MD PCP: Esa Sparrow MD Status: REG ER Study: Chest 1 View (Portable) Date of Exam: 03/24/18 Exam# [id number] Ordering Dr: Lorenzo Arreola MD STUDY: X-RAY [...] CC: Esa Sparrow MD; Lorenzo Arreola MD Assistant Professor Of Dietetics: Signed PROTHROMBIN TIME W/INR Collected: 03/24/2018 Status: F Source: CHIARA 9:15 AM [facility] REPOSITORY TYPE CODE TESTS RESULT OUT OF RANGE REFERENCE UNITS LAB L300.4150 11.7-14.9 SECONDS Normal PROTIME 12.5 LAB L300.4200 Normal INR 0.9 Performed By: #### L300.3900, L300.4310 #### [facility] [address] [place], [address] PARTIAL THROMBOPLAST Collected: 03/24/2018 Status: F Source: [place] TIME 9:15 AM [facility] REPOSITORY TYPE CODE TESTS RESULT OUT OF REFERENCE UNITS RANGE LAB L300.4310 24.1-36.2 Seconds Low PTT 24.0 Performed By: #### L300.3900, L300.4310 #### [facility] [address] [place], [address] CBC W/DIFF, AUTOMATED Collected: 03/24/2018 Status: F Source: [place] 9:15 AM [facility] REPOSITORY TYPE CODE TESTS RESULT [...] Lymph 1.51 Performed By: #### L100.0100 #### [facility] [address] [place], [address] BASIC METABOLIC Collected: 03/24/2018 Status: F Source: [place] PROFILE (BMP) 9:15 AM [facility] REPOSITORY TYPE CODE TESTS RESULT [...] 11 Performed By: #### L500.2500, L501.4010 #### [facility] [address] [place], [address] TROPONIN-I Collected: 03/24/2018 Status: F Source: [place] 9:15 AM [facility] REPOSITORY TYPE CODE TESTS RESULT OUT OF RANGE REFERENCE UNITS LAB L501.4010 <0.045 ng/mL High 0.252 TROPONIN-I Result Comment: TROPONIN-I EXPECTED VALUES <0.045 Negative 0.045 - 0.590 Consistent with Cardiac Damage > OR = 0.600 Critical Value Not every elevated troponin is indicative of NC. These values should be used with clinical judgement in examining the patient's clinical picture for diagnosis. To establish a diagnosis of NC versus myocardial injury, there must be a demonstrated rise and/or fall in the troponin values, in addition to ischemic symptoms, EKG changes, new regional wall motion abnormality, and/or angiographical evidence. PLEASE NOTE: REFERENCE RANGES EDITED 17 Performed By: #### L500.2500, L501.4010 #### [facility] [address] [place], [address] HEMOGLOBIN A1C Collected: 03/24/2018 Status: F Source: [place] 9:15 AM [facility] REPOSITORY TYPE CODE TESTS RESULT OUT OF RANGE REFERENCE UNITS LAB L501.9985 4.2-6.3 % Normal HGB A1C 5.4 Performed By: #### L501.9985 #### [facility] [address] [place], [address] ALLERGIES ALLERGIES DATE TYPE / CODE NAME / CODE REACTION SEVERITY SOURCE 05/15/2018 Drug bee venom Unknown Unknown [facility] Allergy/4160 protein ([facility] 19681(SNOMED bee)/[id number] Repository CT) 5(RXNORM) ENCOUNTERS ENCOUNTERS ADMIT/DISCHARGE ACCOUNT ADMITTING ENCOUNTER LOCATION SOURCE NUMBER CLASS 05/18/2018 [id number] Ambulatory [facility] [facility] [facility] ing:LAB Repository 05/15/2018/ [id number] Ambulatory [facility] [place] 8 [facility] Repository 05/11/2018/ [id number] Emergency [place] [address] 5 [facility] ing:ED Repository 05/04/2018/ [id number] Ambulatory B[facility]Building:B [place] 9 2 [facility] Repository 04/21/2018 [id number] Ambulatory [facility] [place] 8 [facility] Repository 04/20/2018/ [id number] Ambulatory [place] 8 9 [facility] ing:CLSPRoom: Repository [id number] 04/20/2018 [id number] Ambulatory [facility]:W [place] 8 [facility] Repository 04/20/2018/ [id number] Ambulatory [facility]:W [place] 8 7 [facility] Repository 04/17/2018 [id number] Ambulatory B[facility]Building:B [place] 2 [facility] Repository 04/17/2018 [id number] Ambulatory [place] 7 [facility] ing:CVS Repository 04/17/2018 [id number] Ambulatory [facility]Building:W [place] 7 [facility] Repository 04/16/2018 [id number] Ambulatory [facility]Building:B [place] 3 [facility] Repository 04/16/2018 [id number] Ambulatory [place] 6 [facility] ing:[facility]S Repository 04/12/2018/ [id number] Ambulatory B[facility]Building:B [place] 8 2 [facility] Repository 03/24/2018/ [id number] Ambulatory [facility]:W [place] 8 6 [facility] Repository 03/24/2018/ [id number] Ambulatory BMSBuilding:W [place] 8 3 [facility] Repository 03/24/2018/ [id number] Sementi, Inpatient [place] 8 3 [place] Encounter [facility] ing:ICURoom: Repository CMB04Zco: 1 03/24/2018 [id number] [place], Ambulatory B[facility]Building:B [place] 6 [place] [facility] Repository 03/24/2018 [id number] [place], Ambulatory BMSBuilding:B [place] 7 [place] [facility] Repository 03/24/2018 [id number] [place], Ambulatory BMSBuilding:B [place] 5 [place].[facility] Repository 03/24/2018 [id number] [place], Ambulatory B[facility]Building:B [place] 3 [place] [facility] Repository 03/24/2018 [id number] [place], Ambulatory BMSBuilding:B [place] 9 [place].[facility] Repository 03/24/2018 [id number] [place], Ambulatory B[facility]Building:B [place] 2 [place] Repository 03/24/2018/ [id number] Ambulatory BMSBuilding:B [place] 8 6 [facility] Repository PAYERS PAYERS ENCOUNTER GUARANTOR PAYER SUBSCRIBER SOURCE 05/18/2018 MICHEAL A Primary Insurance:[facility] MICHEAL A [place] [id number] [facility] [address] Number: Repository [address]Uby: 330 [id number] [phone] () Date:9194-92-14RM [address] [address], [place] [address]IO: CHECK WEBSITE 05/18/2018 Secondary NOT GIVENUNK [place] Insurance:SELF PAY [facility] Number: Effective Repository Date:2018-05-18 05/15/2018 MICHEAL A Primary Insurance:[facility] MICHEAL A [place] [id number] [facility]: [address] Number: Repository [address]Nzf: 330 [id number] [phone] () Date:8392-55-87MZ [address] [address], [place] [address]LV: CHECK WEBSITE 05/15/2018 Secondary NOT GIVENUNK [place] Insurance:SELF PAY [facility] Number: Effective Repository Date:2018-05-15 05/11/2018 MICHEAL A Primary Insurance:[facility] MICHEAL A [place] [id number] [facility]: [address] Number: Repository [address]Sfp: 330 [id number] [phone] () Date:4868-61-88FE [address] [address], [place] [address]UZ: CHECK WEBSITE 05/11/2018 Secondary NOT GIVENUNK [place] Insurance:SELF PAY [facility] Number: Effective Repository Date:2018-05-11 05/04/2018 MICHEAL A Primary Insurance:[facility] MICHEAL A [place] [id number] [facility]: [address] Number: Repository [address]Osa: 330 [id number] [phone] () Date:2491-54-86VY [address] [address], [place] [address]XF: CHECK WEBSITE 05/04/2018 Secondary NOT GIVENUNK [place] Insurance:SELF PAY [facility] Number: Effective Repository Date:2018-05-04 04/21/2018 MICHEAL A Primary Insurance:[facility] MICHEAL A [place] [id number] [facility]: [address] Number: Repository [address]Nyz: 330 [id number] [phone] () Date:8791-60-48AP [address] [address], [place] [address]VH: CHECK WEBSITE 04/21/2018 Secondary NOT GIVENUNK [place] Insurance:SELF PAY [facility] Number: Effective Repository Date:2018-04-21 04/20/2018 MICHEAL A Primary Insurance:[facility] MICHEAL A [place] [id number] [facility]: [address] Number: Repository [address]Upx: 330 [id number] [phone] () Date:0569-25-98KJ [address] [address]AS[place], [place] [address]ZI: CHECK WEBSITE 04/20/2018 Secondary NOT GIVENUNK [place] Insurance:SELF PAY [facility] Number: Effective Repository Date:2018-04-18 04/20/2018 MICHEAL A Primary Insurance:[facility] MICHEAL A [place] [id number] [facility]: [facility] [id number] Number: Repository [address]Iux: 330 [id number] [phone] () Date:7965-35-64OP [address] [address], [place] [address]XU: CHECK WEBSITE 04/20/2018 Secondary NOT GIVENUNK [place] Insurance:SELF PAY [facility] Number: Effective Repository Date:2018-04-20 04/20/2018 MICHEAL A Primary Insurance:[facility] MICHEAL A [place] [id number] [facility]: [facility] [id number] Number: Repository [address]Llx: 330 [id number] [phone] () Date:2428-18-64QV [address] [address], [place] [address]TC: CHECK WEBSITE 04/20/2018 Secondary NOT GIVENUNK [place] Insurance:SELF PAY [facility] Number: Effective Repository Date:2018-04-20 04/17/2018 MICHEAL A Primary Insurance:[facility] MICHEAL A [place] [id number] [facility]: [address] Number: Repository [address]Jdz: 330 [id number] [phone] () Date:9426-79-05UK [address] [address]KEHEYJ, [place] [address]TF: CHECK WEBSITE 04/17/2018 Secondary NOT GIVENUNK [place] Insurance:SELF PAY [facility] Number: Effective Repository Date:2018-04-17 04/17/2018 MICHEAL A Primary Insurance:[facility] MICHEAL A [place] [id number] [facility] [address] Number: Repository [address]Nrh: 330 [id number] [phone] () Date:8970-88-97OH [address] [address]MFDEKVXXP, [place] [address]VX: CHECK WEBSITE 04/17/2018 Secondary NOT GIVENUNK [place] Insurance:SELF PAY [facility] Number: Effective Repository Date:2018-04-12 04/17/2018 MICHEAL A Primary Insurance:[facility] MICHEAL A [place] [id number] [facility] [address] Number: Repository [address]Vxq: 330 [id number] [phone] () Date:5294-73-76FY [address] [address]VSCFBOCLR, [place] [address]ZI: CHECK WEBSITE 04/17/2018 Secondary NOT GIVENUNK [place] Insurance:SELF PAY [facility] Number: Effective Repository Date:2018-04-17 04/16/2018 MICHEAL A Primary Insurance:[facility] MICHEAL A [place] [id number] [facility]: [address] Number: Repository [address]Xrl: 330 [id number] [phone] () Date:4571-77-47AZ [address] [address]KQBCHHBHW, [place] [address]YH: CHECK WEBSITE 04/16/2018 Secondary NOT GIVENUNK [place] Insurance:SELF PAY [facility] Number: Effective Repository Date:2018-04-16 04/16/2018 MICHEAL A Primary Insurance:[facility] MICHEAL A [place] [id number] [facility] [address] Number: Repository [address]Iaq: 330 [id number] [phone] () Date:6386-53-35EC [address] [address]ONTYYFBGW, [place] [address]NK: CHECK WEBSITE 04/16/2018 Secondary NOT GIVENUNK [place] Insurance:SELF PAY [facility] Number: Effective Repository Date:2018-04-12 04/12/2018 MICHEAL A Primary Insurance:[facility] MICHEAL A [place] [id number] [facility]: [address] Number: Repository [address]Frd: 330 [id number] [phone] (HP) Date:8936-46-51DX [address] [address]WJJEPMQCA, [place] [address]VE: CHECK WEBSITE 04/12/2018 Secondary NOT GIVENUNK [place] Insurance:SELF PAY [facility] Number: Effective Repository Date:2018-04-12 03/24/2018 MICHEAL A Primary Insurance:[facility] MICHEAL A [place] [id number] [facility]: [facility] [id number] Number: Repository [address]Una: 330 [id number] [phone] () Date:5329-60-35TY [address] [address]GBXZGCAJY, [place] [address]CA: CHECK WEBSITE 03/24/2018 Secondary NOT GIVENUNK [place] Insurance:SELF PAY [facility] Number: Effective Repository Date:2018-03-24 03/24/2018 MICHEAL A Primary Insurance:[facility] MICHEAL A [place] [id number] [facility]: [address] Number: Repository [address]Tvr: 330 [id number] [phone] () Date:4239-63-47DI [address] [address]UURAZQSKN, [place] [address]BF: CHECK WEBSITE 03/24/2018 Secondary NOT GIVENUNK [place] Insurance:SELF PAY [facility] Number: Effective Repository Date:2018-03-24 03/24/2018 MICHEAL A Primary Insurance:[facility] MICHEAL A [place] [id number] [facility]: [address] Number: Repository [address]Sog: 330 [id number] [phone] () Date:2403-25-64YS [address] [address]VSUFFJUSF, [place] [address]DD: CHECK WEBSITE 03/24/2018 Secondary NOT GIVENUNK [place] Insurance:SELF PAY [facility] Number: Effective Repository Date:2018-03-24 03/24/2018 MICHEAL A Primary Insurance:[facility] MICHEAL A [place] [id number] [facility]: [place] [address] Number: Repository [address]Ncs: 330 [id number] [phone] () Date:4531-81-13HY [address] [address]FCCVCAJGS, [place] [address]EU: CHECK WEBSITE 03/24/2018 Secondary NOT GIVENUNK [place] Insurance:SELF PAY [facility] Number: Effective Repository Date:2018-03-24 03/24/2018 MICHEAL A Primary Insurance:[facility] MICHEAL A [place] [id number] [facility]: [facility] 6806-03-31ZIGEast [place] Number: Repository [address]Vcp: 330 [id number] [phone] () Date:6948-64-53WM [address] [address]EYLLHVMQV, [place] [address]RY: CHECK WEBSITE 03/24/2018 Secondary NOT GIVENUNK [place] Insurance:SELF PAY [facility] Number: Effective Repository Date:2018-03-24 03/24/2018 MICHEAL A Primary Insurance:[facility] MICHEAL A [place] [id number] [facility]: [facility] 0466-41-13XGQEast [place] Number: Repository [address]Shn: 330 [id number] [phone] () Date:9187-81-70XA [address] [address]TRKIOGUTW, [place] [address]DB: CHECK WEBSITE 03/24/2018 Secondary NOT GIVENUNK [place] Insurance:SELF PAY [facility] Number: Effective Repository Date:2018-03-24 03/24/2018 MICHEAL A Primary Insurance:[facility] MICHEAL A [place] [id number] [facility]: [facility] 2206-28-82ROEEast [place] Number: Repository [address]Bcn: 330 [id number] [phone] () Date:5640-71-30UJ [address] [address]QFKKSSLPK, [place] [address]UC: CHECK WEBSITE 03/24/2018 Secondary NOT GIVENUNK [place] Insurance:SELF PAY [facility] Number: Effective Repository Date:2018-03-24 03/24/2018 MICHEAL A Primary Insurance:[facility] MICHEAL [place] [id number] [facility]: [address] Number: Repository [address]Yev: 330 [id number] [phone] (HP) Date:4868-74-82RP [address] [address]FRCBLXSRD, [place] [address]LQ: CHECK WEBSITE 03/24/2018 Secondary NOT GIVENUNK [place] Insurance:SELF PAY [facility] Number: Effective Repository Date:2018-03-24 03/24/2018 MICHEAL A Primary Insurance:[facility] MICHEAL A [place] [id number] [facility]: [address] Number: Repository [address]Cll: 330 [id number] [phone] () Date:7376-27-88AO [address] [address]JZASQDZSH, [place] [address]YE: CHECK WEBSITE 03/24/2018 Secondary NOT GIVENUNK [place] Insurance:SELF PAY [facility] Number: Effective Repository Date:2018-03-24 03/24/2018 MICHEAL Primary Insurance:[facility] MICHEAL [id number] [facility]: [address] Number: Repository [address]Mav: 330 [id number] [phone] () Date:2581-48-22DE [address] [address]UVAAILTQO, [place] [address]IB: CHECK WEBSITE 03/24/2018 Secondary NOT GIVENUNK [place] Insurance:SELF PAY [facility] Number: Effective Repository Date:2018-03-24
== END ==
PROVIDERS: Family Provider Family Medicine; PCP Family Medicine; Referring Provider Internal Medicine Cardiovascular Disease; Visit Provider Internal Medicine Cardiovascular Disease
DX: E78.5 Hyperlipidemia, unspecified (principal); I25.10 Atherosclerotic heart disease of native coronary artery without angina pectoris
CPT/HCPCS: 36415; 80061; 80076

== ENCOUNTER → 2020-06-03 12:01 | Outpatient (CLI) | payer OTHER, SELFPAY ==
[2018-03-26 07:30] VITALS: BMI 29.5
[2020-06-02 15:27] VITALS: BMI 33.1
[2020-06-03 14:02] LABS: Cholesterol 221 mg/dL (200); High Density Lipoprotein 52 mg/dL; Triglycerides 149 mg/dL; Very Low Density Lipoprotein 30 mg/dL (5-40)
== END ==
PROVIDERS: PCP Family Medicine; Referring Provider Physician Assistant Medical; Visit Provider Physician Assistant Medical
DX: E78.5 Hyperlipidemia, unspecified (principal)
CPT/HCPCS: 36415; 80061

== ENCOUNTER → 2021-02-09 15:50 | Outpatient (CLI) | payer OTHER, SELFPAY ==
[2018-03-26 07:30] VITALS: BMI 29.5
[2021-02-09 16:37] LABS: Absolute Lymphocyte Count 2.72 X10^3/uL (0.83-4.51); Absolute Neutrophil Count 8.7 X10^3/uL (2.0-7.7); Basophil# 0.08 X10^3/uL; Basophil% 0.6 % (0-1); Eosinophil# 0.17 X10^3/uL; Eosinophils% 1.3 % (0-5); Hematocrit 40.7 % (40-54); Hemoglobin 13.7 g/dL (13.0-16.5); Lymphocyte # 2.72 X10^3/ul (0.83-4.51); Lymphocyte % 21.4 % (19-41); Mean Corp Hgb Conc 33.7 g/dL (32-36); Mean Corpuscular Volume 86.2 fL (80-94); Mean Platelet Vol. 10.5 fl (6.2-12.0); Monocyte# 1.06 X10^3/uL; Monocyte% 8.3 % (0-10); NRBC Flagged by Analyzer 0 % (0-5); Neutrophil # 8.66 X10^3/uL (2.7-7.7); Neutrophil % 68.1 % (47-70); Platelet Count 346 K/mm3 (150-450); RBC Distribution Width CV 13.4 % (11.6-14.6); Red Blood Count 4.72 M/mm3 (4.6-6.2); White Blood Count 12.7 K/mm3 (4.4-11.0)
[2021-02-09 17:52] LABS: AST(SGOT) 28 U/L (15-37); Alanine Aminotransfer ALT/SGPT 26 U/L (16-61); Albumin, Serum 3.9 g/dL (3.2-5.0); Alkaline Phosphatase 48 U/L (45-117); Anion Gap 9 (5-15); BUN 16 mg/dL (7-18); BUN/Creat Ratio 13.6 RATIO (10-20); Bilirubin, Direct 0.11 mg/dL (0.00-0.30); Calcium,Total 9.9 mg/dL (8.5-10.1); Chloride 102 mmol/L (98-107); Cholesterol 200 mg/dL (200); Creatinine, Serum 1.18 mg/dL (0.70-1.30); EST Glomerular Filtration Rate 68 mL/min (>60); Est Glom Filt Rate - Afr Amer 82 mL/min (>60); Glucose 84 mg/dL (74-106); High Density Lipoprotein 54 mg/dL; Potassium 3.8 mmol/L (3.5-5.1); Protein, Total 7.9 g/dL (6.4-8.2); Sodium Level 139 mmol/L (136-145); Triglycerides 161 mg/dL; Very Low Density Lipoprotein 32 mg/dL (5-40)
== END ==
PROVIDERS: PCP Family Medicine; Visit Provider Physician Assistant Medical
DX: I25.10 Atherosclerotic heart disease of native coronary artery without angina pectoris (principal); E78.00 Pure hypercholesterolemia, unspecified; I10 Essential (primary) hypertension
CPT/HCPCS: 36415; 80048; 80061; 80076; 85025